=== PATIENT | female | born 1995 | race Caucasian/White ===

== ENCOUNTER 2019-04-12 08:28 | Day surgery (SDC) | payer OTHER, SELFPAY ==
[2019-04-11 14:11] VITALS: BMI 34.4
[2019-04-12 08:52] VITALS: PULSE 106; RESP 20; TEMP 36.3; O2SAT 98
[2019-04-12 09:08] LABS: OR HCG Qualitative Urine Negative (Negative)
[2019-04-12] MEDS: sodium chloride 0.9% 1,000 ML 30 ML (09:17)
--- NOTE | 2019-04-12 10:17 | ANES.PREANE2 ---
Pre-Anesthetic Assessment Pre-Anesthetic Assessment: Height/Weight: Height 1.74 m Weight 104.326 kg Temp Pulse Resp Pulse Ox 97.3 F L 106 H 20 H 98 04/12/19 08:52 04/12/19 08:52 04/12/19 08:52 04/12/19 08:52 Proposed Procedure: Operation Date: 04/12/19 10:00 Proposed Procedures p Colonoscopy(Not Applicable) - Chris Packer MD Was Beta Nasim taken within 24 hours: N/A Last intake: Intake Last Liquid Date 04/11/19 Last Liquid Time 22:00 Last Solid Date 04/10/19 Last Solid Time 20:00 Social: Social History: Alcohol and Tobacco Exam: Pre-Anes Outpt Exam: alert, oriented x 3, clear to auscultation bilaterally and regular rate & rhythm Airway: Submandibular: WNL Cervical ROM: WNL MP: 2 Dentition: Full History/ROS: No significant history except as noted and No significant complaints Pulmonary: Pulmonary: None reported CV/HEM: CV/HEM: None reported : : None reported Hepatic: Hepatic: None reported GI: GI: None reported Metabolic: Metabolic: None reported Musc/skel: Musc/skel: None reported Neuropsych: Neuropsych: None reported Anesthetic Plan: ASA status: 2 Anesthesia: Anesthesia Evaluation and MAC Risk of > 500 ml blood loss (7ml/kg in children): No Data Anesthesia Other Labs: Laboratory Results - last 48 hr 04/12/19 09:07 Urine HCG, Qual Negative Cardiac Studies: No Data to Display
--- NOTE | 2019-04-12 11:04 | W.PM.OPSUD ---
Surgery/Procedure H&P Update DATE OF PROCEDURE: April 12, 2019 DATE H&P PERFORMED: 04/02/19 H&P UPDATE INFORMATION: I have reviewed H&P completed within last 30 days, I have examined patient prior to procedure, No changes to prior documentation and H&P to be scanned into chart PREOP DIAGNOSIS: Rectal bleeding and family history of colon cancer PLANNED PROCEDURE: Operation Date: 04/12/19 10:00 Proposed Procedures p Colonoscopy(Not Applicable) - Chris Packer MD Related Problem List Diagnoses (1) Rectal bleeding: (2) Family history of colon cancer:
[2019-04-12 11:24] VITALS: BP 134/87; PULSE 106; RESP 16; TEMP 37.2; O2SAT 100
[2019-04-12 11:42] VITALS: BP 135/98; PULSE 84; RESP 18; O2SAT 100
== END 2019-04-12 11:45 | disposition home or self-care (01) ==
PROVIDERS: Anesthesiology; Family Provider Family Medicine; PCP Family Medicine; Visit Provider Family Medicine
PROC: 0DJD8ZZ Inspection of Lower Intestinal Tract, Via Natural or Artificial Opening Endoscopic (ICD-10-PCS; CPT 45378; principal; 2019-04-12 10:00)
DX: K62.5 Hemorrhage of anus and rectum (principal); Z80.0 Family history of malignant neoplasm of digestive organs; K64.8 Other hemorrhoids; Z82.49 Family history of ischemic heart disease and other diseases of the circulatory system; Z83.3 Family history of diabetes mellitus; Z87.891 Personal history of nicotine dependence
CPT/HCPCS: 12345; 45378; 81025; 84703; J2704; J7030

== ENCOUNTER 2019-08-13 08:56 | Outpatient (CLI) | payer OTHER, SELFPAY ==
--- NOTE | 2019-08-13 13:03 | PFTS_ITS ---
Date of Study:08/13/19 Date of Dictation: MECHANICS: Forced vital capacity (FVC) is normal. Forced expiratory volume in one second (FEV1) is normal. FEV1/FVC is reduced. FLOW VOLUME LOOP: Reduced flow at all lung volumes. LUNG VOLUMES: Not performed DIFFUSING CAPACITY FOR CARBON MONOXIDE: Not performed INTERPRETATION: The spirometry is consistent with mild obstruction MTDD
== END 2019-08-13 08:57 | disposition home or self-care (01) ==
LOC: RT 08:59
PROVIDERS: Family Provider Family Medicine; PCP Family Medicine; Visit Provider Family Medicine
DX: R93.89 Abnormal findings on diagnostic imaging of other specified body structures (principal)
CPT/HCPCS: 94010

== ENCOUNTER → 2019-09-20 11:00 | Outpatient (BNVA) | payer OTHER, SELFPAY | PROVIDERS: Family Provider Family Medicine; PCP Family Medicine; Visit Provider Internal Medicine | DX: J44.9 Chronic obstructive pulmonary disease, unspecified (principal) | CPT/HCPCS: 87635 ==

== ENCOUNTER 2019-09-25 13:01 | Outpatient (CLI) | payer OTHER, SELFPAY ==
--- NOTE | 2019-09-25 13:30 | CT_ITS ---
WS: [id number] CT CHEST WITHOUT INTRAVENOUS CONTRAST HISTORY: obstructive lung disease TECHNIQUE: Contiguous 5 mm axial imaging performed on the thorax. Coronal and sagittal reformats are submitted. All CT scans at [facility] use at least one of these dose optimization techniq ues: automated exposure control; mA and/or kV adjustment per patient size (includes targeted exams wh ere dose is matched to clinical indication); or iterative reconstruction. CONTRAST: None DLP: 933.02 mGy.cm COMPARISON: 05/09/2019 Lungs and central airway: Normally aerated lungs. No hyperexpansion or bullous disease. There is some very minimal groundglass attenuation adjacent to the ascending aorta. No pulmonary nodule. Pleura: Normal. No pleural effusion. Heart and pericardium: Normal size heart. No pericardial effusion. Mediastinum and cody: No adenopathy. Residual thymic tissue present along the anterior mediastinum co nforms to the space. Vessels: Pulmonary artery is slightly enlarged suggesting pulmonary hypertension. Diameter slightly g reater than aorta. Chest wall and lower neck: No soft tissue masses. Upper abdomen: Postsurgical changes superior pole of the RIGHT kidney. Prior cholecystectomy. Diffuse hepatic steatosis. Osseous structures: No destructive process. CT/CT chest wo con [id number] IMPRESSION: 1. No pulmonary nodules or mass. 2. No CT evidence for emphysema. 3. Mild enlargement of the pulmonary artery. Correlate for pulmonary hypertens ion. 4. Prior cholecystectomy. 5. Hepatic steatosis.
[2019-09-25 14:28] LABS: Basophils % 0.3 %; Eosinophils # 0.1 10^3/uL (0.0-0.8); Eosinophils % 0.9 %; Hematocrit 40.7 % (37.0-47.0); Hemoglobin 13.1 g/dL (11.5-15.3); Lymphocytes # 3.6 10^3/uL (0.8-4.8); Lymphocytes % 33.1 %; Mean Corpuscular HGB Conc 32.2 g/dL (30.0-36.0); Mean Corpuscular Hemoglobin 27.2 pg (28.0-34.0); Mean Corpuscular Volume 84.6 fL (81-99); Mean Platelet Volume 9.6 fL (7.4-10.4); Monocytes # 0.7 10^3/uL (0.2-0.9); Monocytes % 6.8 %; Neutrophils % 58.4 %; Nucleated Red Blood Cells % 0 %; Platelet Count 281 10^3/cmm (130-400); Red Blood Count 4.81 10^6/uL (4.1-5.3); Red Cell Distribution Width 12.6 % (12.1-15.1)
[2019-09-25 14:46] LABS: Alanine Aminotransferase 13 U/L (0-33); Albumin Level 4.1 g/dL (3.5-5.2); Alkaline Phosphatase 78 IU/L (35-105); Anion Gap 13.8 (5-19); Aspartate Amino Transferase 12 U/L (0-32); Blood Urea Nitrogen 11 mg/dL (6-20); Carbon Dioxide 24 mmol/L (22-29); Chloride 103 mmol/L (98-107); Globulin 3.3 g/dL (1.3-4.6); Glomerular Filtration Rate 122.8 mL/min (90-130); Glucose 110 mg/dL (65-115); Osmolality Calculated 281 mOsm/kg (285-295); Potassium 3.8 mmol/L (3.5-5.1); Sodium 137 mmol/L (136-145); Total Bilirubin 0.2 mg/dL (0.15-1.2); Total Protein 7.4 g/dL (6.6-8.7)
[2019-09-26 18:35] LABS: Alternaria Alternata (M6) Ige <0.10 kU/L; Alternaria Class 0; Bermuda Class 0; Bermuda Grass (G2) Ige <0.10 kU/L; Cat Dander (E1) Ige <0.10 kU/L; Cat Dander Class 0; Common Ragweed (Short) (W1) Ig <0.10 kU/L; D. Farinae Class 0; Dermatophagoides Class 0; Dermatophagoides Farinae (D2) <0.10 kU/L; Dermatophagoides Pteronyssinus <0.10 kU/L; Dog Dander (E5) Ige <0.10 kU/L; Dog Dander Class 0; Elm (T8) Ige <0.10 kU/L; Elm Class 0; English Plantain (W9) Ige <0.10 kU/L; English Plantain Class 0; House Dust (Greer) (H1) Ige <0.10 kU/L; House Dust (Hollister- Stier) <0.10 kU/L; House Dust Class 0; Immunoglobulin E 64 kU/L (<OR=114); Immunoglobulin E 65 kU/L (<OR=114); Johnson Grass (G10) Ige <0.10 kU/L; Johnson Grass Cl 0; June Grass Class 0; June Grass(Kentucky Blue) (G8) <0.10 kU/L; Lamb'S Quarters (Goose Foot) <0.10 kU/L; Lamb'S Quarters Class 0; Maple (Box Elder) (T1) Ige <0.10 kU/L; Maple Class 0; Meadow Fescue (G4) Ige <0.10 kU/L; Meadow Fescue Class 0; Mucor Racemosus Class 0; Oak (T7) Ige <0.10 kU/L; Oak Class 0; Orchard Grass (Cocksfoot) (G3) <0.10 kU/L; Penicillium Class 0; Penicillium Notatum (M1) Ige <0.10 kU/L; Perennial Rye Grass (G5) Ige <0.10 kU/L; Perennial Rye Grass Class 0; Ragweeed Class 0; Rough Marsh Elder (W16) Ige <0.10 kU/L; Rough Marsh Elder Class 0; Sweet Vernal Class 0; Sweet Vernal Grass (G1) Ige <0.10 kU/L; Timothy Grass (G6) Ige <0.10 kU/L; Timothy Grass Class 0
[2019-09-30 18:12] LABS: Aspergillus Fumigatus, Igg Ab, 7.7 mg/L (<=102)
== END 2019-09-25 13:02 | disposition home or self-care (01) ==
LOC: RAD 13:03
PROVIDERS: PCP Family Medicine; Visit Provider Internal Medicine Pulmonary Disease
DX: J44.9 Chronic obstructive pulmonary disease, unspecified (principal); R06.02 Shortness of breath; K76.0 Fatty (change of) liver, not elsewhere classified
CPT/HCPCS: 71250; 80053; 82785; 85025; 86003; 94060; 94726; 94729; J7611

== ENCOUNTER 2019-11-06 12:00 | Outpatient (CLI) | payer OTHER, SELFPAY | END 2019-11-06 12:01 | disposition home or self-care (01) | LOC: SLEEP 11-07 09:38 | PROVIDERS: Family Provider Family Medicine; PCP Family Medicine; Visit Provider Internal Medicine Pulmonary Disease | DX: G47.33 Obstructive sleep apnea (adult) (pediatric) (principal) | CPT/HCPCS: G0399 ==

== ENCOUNTER 2019-11-21 07:43 | Outpatient (CLI) | payer OTHER, SELFPAY ==
--- NOTE | 2019-11-21 08:00 | USCV_ITS ---
HearnPing Age: 24 Gender: F : 1995 Exam Date: 11/21/2019 08:03 Ordering Phys: Chelsea Escoto MD ([email or web address]) Technologist: Leslie Kessler [place]am Location[place] [facility] [place]ication: DYSPNEA BP: 126 / 84 HR: 85 Rhythm: Sinus Technical Quality: Adequate MEASUREMENTS (Male / Female) Normal Values 2D ECHO LV Diastolic Diameter PLAX 4.5 cm 4.2 - 5.9 / 3.9 - 5.3 cm LV Systolic Diameter PLAX 3.3 cm LV Chamber Size 2.9 cm IVS Diastolic Thickness 0.9 cm 0.6 - 1.0 / 0.6 - 0.9 cm IVS Systolic Thickness 1.1 cm LVPW Diastolic Thickness 1.9 cm 0.6 - 1.0 / 0.6 - 0.9 cm LVPW Systolic Thickness 1.7 cm RV Chamber Size 2.7 cm LVOT Diameter 2.0 cm LV Ejection Fraction 2D Teich 50.7 % LV Ejection Fraction MOD 2C 51.8 % LV Ejection Fraction 2C AL 53.1 % LA Diameter 3.5 cm LA Width 2.8 cm LA Height 3.7 cm RA Width 2.7 cm RA Height 3.2 cm Aorta at Sinotubular Diameter 2.4 cm M-MODE LV Diastolic Diameter MM 5.0 cm 4.2 - 5.9 / 3.9 - 5.3 cm LV Systolic Diameter MM 3.3 cm LV Ejection Fraction MM Teich 61.8 % IVS Diastolic Thickness MM 0.7 cm 0.6 - 1.0 / 0.6 - 0.9 cm IVS Systolic Thickness MM 1.1 cm LVPW Diastolic Thickness MM 0.6 cm 0.6 - 1.0 / 0.6 - 0.9 cm LVPW Systolic Thickness MM 1.3 cm Aortic Annulus Diameter 3.0 cm LA Ao Ratio MM 1.2 MV E Point Septal Separation 0.8 cm DOPPLER AV Peak Velocity 134.0 cm/s LVOT Peak Velocity 104.0 cm/s AV Area Cont Eq vti 3.2 cm squared AV Area Cont Eq pk 2.5 cm squared MV Area PHT 6.7 cm squared Mitral E to A Ratio 1.0 MV E' Velocity 44.0 cm/s Mitral E to MV E' Ratio 5.9 Mitral E to LV E' Lateral Ratio 5.3 Mitral E to LV E' Septal Ratio 6.7 TR Peak Velocity 140.8 cm/s TR Peak Gradient 7.9 mmHg TV Peak E Velocity 73.0 cm/s Right Atrial Pressure 3.0 mmHg Pulmonary Artery Systolic Pressu 10.9 mmHg PV Peak Velocity 67.0 cm/s RV Acceleration Time 0.2 s RV Ejection Time 0.3 s RV AcT/ET 0.5 FINDINGS Left Ventricle Normal left ventricular size, systolic function and wall thickness, with no regional wall motion abnormalities. Left ventricular ejection fraction is estimated at 65 %. Normal diastolic function. Right Ventricle Normal right ventricular size and systolic function, RVSP 10.9 mmHg. Right Atrium Normal right atrial size. Right atrial pressure estimated at 3 mmHg. Left Atrium Normal left atrial size. Mitral Valve Structurally normal mitral valve. No mitral valve stenosis. Trace mitral valve regurgitation. Aortic Valve Structurally normal trileaflet aortic valve. No aortic valve stenosis. No aortic valve regurgitation. Tricuspid Valve Structurally normal tricuspid valve. Trace tricuspid valve regurgitation. Pulmonic Valve Pulmonic valve not well visualized. No pulmonary valve stenosis. No significant pulmonary valve regurgitation. Pericardium No pericardial effusion. Normal sized inferior vena cava. Aorta Normal size aortic root and proximal ascending aorta. CONCLUSIONS 1. Normal left ventricular size, systolic function and wall thickness, with no regional wall motion abnormalities. Left ventricular ejection fraction is estimated at 65 %. Normal diastolic function. 2. Normal right ventricular size and systolic function, RVSP 10.9 mmHg. 3. No significant valvular abnormality. 4. No intracardiac masses. 5. No pericardial effusion. 6. No prior similar studies to compare. Chelsea Escoto MD (Electronically Signed) Final Date: 21 November 2019 18:13 S
== END 2019-11-21 07:44 | disposition home or self-care (01) ==
LOC: RAD 07:45
PROVIDERS: PCP Family Medicine; Visit Provider Internal Medicine Cardiovascular Disease
DX: R06.00 Dyspnea, unspecified (principal); R00.0 Tachycardia, unspecified
CPT/HCPCS: 93306

== ENCOUNTER 2020-04-13 08:56 | Emergency (ER) | payer OTHER, SELFPAY ==
[2020-04-13 08:58] VITALS: BP 166/104; PULSE 90; RESP 18; TEMP 36.4; O2SAT 98; BMI 35.4
[2020-04-13 09:18] VITALS: BP 166/104; PULSE 81; RESP 14; O2SAT 97
--- NOTE | 2020-04-13 09:46 | W.ED.HA ---
HPI - Headache General: Chief Complaint: Headache Stated Complaint: MIGRAINE (4 DAYS) Time Seen by Provider: 04/13/20 08:57 History of Present Illness: HPI Narrative: 24-year-old female presents emergency room with complaints of headache. She has been having these last couple months is seen her primary care doctor for it several times she is on metoprolol and Depakote for migraine prophylaxis. She states these headaches begin suddenly desponded as well. This 1 has been going on for the last 4 days she is taken Aleve for with no relief she does not have any prescription rescue headache medications. She does get nauseous with it and has some moderate photophobia. She is not had any vomiting. She has had a history of a questionable lesion in her right kidney that was removed. She made a comment about a liver tumor however there is mention of that in the lead up to the nephrectomy partial nephrectomy and on follow-up scans done to monitor the lesion in the kidney the area of concern in the liver had resolved completely. MD elicited complaint: headache Onset (ago): day(s) (4) Onset description: suddenly Location: left Severity: moderate Quality & Timing: throbbing Exacerbating factors: exertion and light Relieving factors: rest and dark room Associated symptoms: Reports nausea and photophobia; Deny chest pain, confusion, cough, diaphoresis, eye pain, eye redness, fever(s), lightheadedness, loss of vision, malaise, neck stiffness, numbness, paresthesias, pre-syncope, rash, seizures, short of breath, sound sensitivity, syncope, vomiting or weakness Treatments prior to arrival: other (Naprosyn) Review of Systems Const: Denies: fever(s), malaise or diaphoresis ENMT: Denies: throat pain, ear or mastoid pain, nasal discharge or nasal congestion Card: Denies: chest pain, lightheadedness, syncope or pre-syncope Resp: Denies: dyspnea, productive cough or non-productive cough GI: Reports: nausea; Denies: vomiting : Denies: flank pain, difficulty voiding, dysuria, urinary frequency or urinary urgency Skin/Breast: Denies: rash Neuro: Denies: confusion PFSH ED PFSH: Medical History (Updated 04/13/20 @ 11:24 by Grabiel Reich DO) Anxiety Depression FHx: kidney cancer Surgical History History of cholecystectomy History of kidney surgery History of tonsillectomy and adenoidectomy Family History Other CAD (coronary artery disease) Cancer Diabetes Hypertension Lung disease Psychiatric illness Social History Smoking and tobacco status: current every day smoker cigarettes Years cigarettes smoked: 4 [ Other cigarette details: 1PPD x 4 Year Hx ] Quit status (tobacco): considering quitting Second hand smoke exposure: Yes Smoking risk assessment/counseling performed?: Yes Alcohol intake: current Lives independently: Yes Household members: spouse Marital status: Current 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 Current occupational exposures/hazards: No History of recent travel: No Current gender identity: Female Physical Exam Const: COMMON NORMALS: no acute distress GENERAL APPEARANCE: cooperative and comfortable ORIENTATION/CONSCIOUSNESS: Yes awake, Yes oriented to person, Yes oriented to place and Yes oriented to time HENMT: COMMON NORMALS: normocephalic, atraumatic, hearing grossly normal bilaterally, external ears normal, EAC's normal, TM's normal bilaterally, Normal nasal mucous membranes and turbinates present, moist oral mucous membranes and oropharynx normal HEAD & SCALP: normocephalic and atraumatic NOSE: Normal nasal mucous membranes and turbinates present EXTERNAL EAR: Yes external ears normal EXTERNAL AUDITORY CANAL: EAC's normal TYMPANIC MEMBRANE: TM's normal bilaterally Eye: COMMON NORMALS: Equal, round and reactive pupils present, EOMs intact bilaterally, conjunctivae normal and no scleral icterus CONJUNCTIVA: Yes conjunctivae normal PUPIL: Yes Equal, round and reactive pupils present DIRECT OPHTHALMOSCOPY: Yes photophobia Neck/C-Spine: COMMON NORMALS: no JVD Resp: COMMON NORMALS: normal respiratory effort, No retractions, No use of accessory muscles and clear to auscultation bilaterally AUSCULTATION: clear to auscultation bilaterally Cardio: COMMON NORMALS: no JVD, regular rate, regular rhythm and No murmurs present (Cardio) RATE: regular rate RHYTHM: regular rhythm GI: COMMON NORMALS: Soft to palpation and No hepatosplenomegaly present AUSCULTATION: Yes normoactive bowel sounds PALPATION: Yes Soft to palpation, No Tenderness to palpation present (GI), No Guarding due to palpation present (GI) and Yes No hepatosplenomegaly present Extremity: COMMON NORMALS: normal to inspection, capillary refill normal, no clubbing, cyanosis or edema, no calf tenderness and no pedal edema Neuro: SENSORIUM/ORIENTATION: Yes oriented to person, Yes oriented to place and Yes oriented to time Skin: COMMON NORMALS: no rashes or lesions noted GENERAL SKIN EXAM: no rashes or lesions noted Course Vital Signs: Vital signs: Vital Signs Temperature 97.5 F L 04/13/20 08:58 Pulse Rate 74 04/13/20 11:32 Respiratory Rate 14 04/13/20 11:32 Blood Pressure 130/78 04/13/20 11:32 Pulse Oximetry 100 04/13/20 11:32 MDM - Headache MDM Narrative: Medical decision making narrative: Patient has no focal neurologic deficits this is been an ongoing issue with her migraines for the last 3 months. She had been started on prophylactic migraine therapy. She complaining of some discomfort occasionally in her arms although it was only from the forearms distal. 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 I do think she would benefit from further evaluation and likely advanced imaging such as an MRI. She is given a prescription for rescue medicines for her headaches. We did treat her here in the emergency room she had some improvement but still had a fairly significant headache I had written for more medication to try to relieve her headache she declined that she is simply wanted to go back to work. She is concerned about the cost of this ER visit and had expected all necessary imaging would be done during this ER visit. Discussed with her that she would benefit most from an MRI of the head. Also suspect she may benefit from an MRI of the neck given the bilateral arm symptoms. We will make arrangements for those as well as referral to neurology. Discharge Plan Discharge Patient Disposition: Home Clinical Impression: Migraine, Numbness and tingling of right upper extremity, Numbness and tingling of left upper extremity Condition: Stable Prescriptions: New promethazine 25 mg tablet 25 mg PO Q6H PRN (Reason: prn headache) Qty: 20 RF: 0 Imitrex 50 mg tablet See Rx Instructions .ROUTE .COMPLEX Qty: 20 RF: 0 No Action montelukast [Singulair] 10 mg tablet 10 mg PO DAILY Qty: 30 RF: 3 clonazepam 0.5 mg Tablet 0.5 mg PO EVERY OTHER DAY PRN (Reason: Anxiety) RF: 0 lithium carbonate 450 mg tablet extended release 450 mg PO BID RF: 0 metoprolol tartrate 50 mg tablet 50 mg PO BID RF: 0 propranolol 20 mg Tablet 20 mg PO BID RF: 0 Topamax 50 mg Tablet 50 mg PO BID RF: 0 Flovent HFA 110 mcg/actuation HFA aerosol inhaler 1 puff inhalation BID PRN (Reason: Shortness Of Breath) RF: 0 Discharge Orders: Discharge ED (Routine); Ordered 04/13/20 Ordered By: Grabiel Reich Referrals: Chris Packer MD [Primary Care Provider] - Discharge Diet: Usual diet Discharge Activity: Increase activity as tolerated Patient Instructions: Opioid Safety Activity Restrictions/Additional Instructions: Case management will call to get an MRI of the head and neck arranged for her. Follow-up with your primary care doctor. You may return to the emergency room at any time if your symptoms worsen. Coding Level of Care Code ED Rolled Ham Lacer for Taniya Fwamber Exam Comprehensive
[2020-04-13] MEDS: sodium chloride 0.9% 1,000 ML 999 ML IV (09:47)
[2020-04-13] MEDS: ketorolac 30 mg/mL INJ IVP (09:49)
[2020-04-13] MEDS: promethazine 25 mg/mL SDV 1 mL IM (09:51)
[2020-04-13] MEDS: valproic acid inj 500 MG in sodium chloride 0.9% 50 ML 55 MG IV (09:53)
[2020-04-13 09:58] VITALS: BP 136/71; PULSE 71; RESP 14; O2SAT 98
[2020-04-13 10:49] VITALS: BP 128/65; PULSE 70; RESP 14; O2SAT 100
[2020-04-13 11:23] VITALS: BP 158/74; PULSE 75; RESP 16; O2SAT 97
[2020-04-13 11:32] VITALS: BP 130/78; PULSE 74; RESP 14; O2SAT 100
--- NOTE | 2020-04-13 15:48 | PC.NURSE ---
Read and agree with assessment.
== END 2020-04-13 11:38 | disposition home or self-care (01) ==
PROVIDERS: Emergency Provider Family Medicine; PCP Family Medicine
DX: G43.909 Migraine, unspecified, not intractable, without status migrainosus (principal); R20.0 Anesthesia of skin; F17.210 Nicotine dependence, cigarettes, uncomplicated
CPT/HCPCS: 96365; 96372; 99283; J1885; J2550; J7030

== ENCOUNTER 2020-08-24 07:38 | Outpatient (CLI) | payer OTHER, SELFPAY ==
--- NOTE | 2020-08-24 07:51 | US_ITS ---
WS: [id number] ULTRASOUND BREAST LEFT TECHNIQUE: Ultrasound left breast focused area of concern. CLINICAL INFORMATION: DISCHARGE FROM LT NIP[facility] COMPARISON: None. FINDINGS: Ultrasound left breast at the areola. No evidence of underlying cystic or solid lesion. No suspicious lesions to target for biopsy. Comparison right breast at the areola is normal in appearance. US/US breast LT limited* [id number] IMPRESSION: No suspicious findings BI-RADS 2 benign Recommend annual screening mammography age 40
== END 2020-08-24 07:39 | disposition home or self-care (01) ==
LOC: RAD 07:45
PROVIDERS: PCP Family Medicine; Visit Provider Nurse Practitioner
DX: N64.52 Nipple discharge (principal)
CPT/HCPCS: 76642

== ENCOUNTER → 2020-08-25 14:48 | Outpatient (BNVA) | payer OTHER, SELFPAY | PROVIDERS: PCP Family Medicine; Visit Provider Obstetrics & Gynecology | DX: Z01.419 Encounter for gynecological examination (general) (routine) without abnormal findings (principal); Z98.890 Other specified postprocedural states | CPT/HCPCS: 88175 ==

== ENCOUNTER → 2021-02-09 11:32 | Outpatient (BNVA) | payer OTHER, SELFPAY | PROVIDERS: PCP Nurse Practitioner Family; Visit Provider Nurse Practitioner Family | DX: E66.9 Obesity, unspecified (principal); Z68.38 Body mass index [BMI] 38.0-38.9, adult; R53.83 Other fatigue | CPT/HCPCS: 80053; 83036; 84439; 84443; 84481 ==

== ENCOUNTER → 2021-03-19 11:52 | Outpatient (BNVA) | payer OTHER, SELFPAY | PROVIDERS: PCP Nurse Practitioner Family; Visit Provider Nurse Practitioner Family | DX: I10 Essential (primary) hypertension (principal); N93.0 Postcoital and contact bleeding | CPT/HCPCS: 81003; 81025; 87491; 87591; 87661 ==

== ENCOUNTER → 2021-03-30 09:33 | Outpatient (BNVA) | payer OTHER, SELFPAY | PROVIDERS: PCP Nurse Practitioner Family; Visit Provider Obstetrics & Gynecology | DX: O26.859 Spotting complicating pregnancy, unspecified trimester (principal) | CPT/HCPCS: 84702; 86850; 86900 ==

== ENCOUNTER → 2021-04-05 10:22 | Outpatient (BNVA) | payer OTHER, SELFPAY | PROVIDERS: PCP Nurse Practitioner Family; Visit Provider Obstetrics & Gynecology | DX: O26.859 Spotting complicating pregnancy, unspecified trimester (principal) | CPT/HCPCS: 84702 ==

== ENCOUNTER 2021-04-09 08:07 | Outpatient (CLI) | payer OTHER, SELFPAY | END 2021-04-09 08:08 | disposition home or self-care (01) | LOC: LAB 08:12 | PROVIDERS: PCP Nurse Practitioner Family; Visit Provider Obstetrics & Gynecology | DX: O20.9 Hemorrhage in early pregnancy, unspecified (principal) | CPT/HCPCS: 36415; 84702 ==

== ENCOUNTER 2021-04-09 13:58 | Emergency (ER) | payer OTHER, SELFPAY ==
--- NOTE | 2021-04-09 14:03 | US_ITS ---
WS: [id number] Obstetrical ultrasound, less than 14 weeks. HISTORY: Spotting and cramping. Evaluate for ectopic . Normal size anteverted uterus. There is a tiny cyst within the central endometrium. If this is a gest ational sac age is calculated at 5 weeks and 1 day. No pole or cardiac activity is identified. Cervix is closed. No free fluid. RIGHT ovary measures 1.8 x 1.7 x 1.6 cm. LEFT ovary measures 2.7 x 1.7 x 2.9 cm. No ad ditional adnexal masses are identified. US/US OB transvaginal [id number] IMPRESSION: 1. Cannot confirm intrauterine uterine gestation. There is a tiny amount of flu id along the endometrial canal which could represent a very early gestation of approximately 5 weeks and 1 day. 2. No free fluid or adnexal masses other than the ovaries. 3. Cannot exclude ectopic without confirming intrauterine gestation.
[2021-04-09 14:09] VITALS: BP 168/101; PULSE 118; RESP 18; TEMP 36.7; O2SAT 99; BMI 37.6
[2021-04-09 15:35] LABS: Basophils % 0.2 %; Eosinophils # 0.1 10^3/uL (0.0-0.8); Eosinophils % 0.5 %; Hematocrit 42.4 % (37.0-47.0); Hemoglobin 13.8 g/dL (11.5-15.3); Lymphocytes # 2.6 10^3/uL (0.8-4.8); Lymphocytes % 20.9 %; Mean Corpuscular HGB Conc 32.5 g/dL (30.0-36.0); Mean Corpuscular Hemoglobin 27.4 pg (28.0-34.0); Mean Corpuscular Volume 84.3 fl (81-99); Mean Platelet Volume 9.5 fL (7.4-10.4); Monocytes # 0.7 10^3/uL (0.2-0.9); Monocytes % 5.7 %; Neutrophils # 8.99 10^3/uL (1.8-7.7); Neutrophils % 72.1 %; Nucleated Red Blood Cells % 0 %; Platelet Count 261 10^3/cmm (130-400); Red Blood Count 5.03 10^6/uL (4.1-5.3); Red Cell Distribution Width 13.2 % (12.1-15.1); White Blood Count 12.5 10^3/uL (4.0-10.0)
[2021-04-09 16:04] LABS: Alanine Aminotransferase 24 U/L (0-33); Albumin Level 4.5 g/dL (3.5-5.2); Alkaline Phosphatase 82 IU/L (35-105); Anion Gap 13.6 (5-19); Aspartate Amino Transferase 14 U/L (0-32); Blood Urea Nitrogen 8 mg/dL (6-20); Calcium 8.5 mg/dL (8.5-10.5); Carbon Dioxide 25 mmol/L (22-29); Chloride 102 mmol/L (98-107); Globulin 2.5 g/dL (1.3-4.6); Glomerular Filtration Rate 121.8 mL/min (90-130); Glucose 129 mg/dL (65-115); Osmolality Calculated 284 mOsm/kg (285-295); Potassium 3.6 mmol/L (3.5-5.1); Sodium 137 mmol/L (136-145); Total Bilirubin 0.2 mg/dL (0.15-1.2)
--- NOTE | 2021-04-09 16:04 | ED_ITS ---
Documented by User: GIOVANNY Hawkins 04/09/21 16:43 HPI - General: Chief complaint: OB/Uterine Contractions Stated complaint: pt believes shes having ectopic Time Seen by Provider: 04/09/21 15:23 Source: patient Mode of arrival: ambulatory Limitations: no limitations History of Present Illness: Patient is a 25-year-old female here for concerns of a possible miscarriage or ectopic . Patient tells me she had a positive test with an hCG of 44 on 03/30. She had her hCG repeated 6 days later on 04/05 and it was 88. She states her hCG then was repeated 6 days later and it was 151 (that was this morning). Patient states she has never had an ultrasound. Her hCGs are being ordered through [facility]/Dr. Ballesteros. Patient has had intermittent vaginal bleeding since mid October. She states she has blood over the past 4 days and has cramping. She states bleeding is fairly mild at this time. This would make patient's third . She states she had 2 uncomplicated live births. MD Complaint: vaginal bleeding and other (pelvic cramping) Onset (ago): day(s) Pain Consistency: constant Location: pelvis Quality: Cramping Relieving factors: none Exacerbating factors: none Vaginal discharge: none Vaginal bleeding: light Date of Last Menstrual Period: 03/05/21 Patient : Yes OB History - Current : no complications OB History - Previous Pregnancies: no complications Associated symptoms: Reports nausea; Deny abdominal pain, dysuria, headache(s), malaise, vaginal discharge or vomiting Review of Systems Const: Denies: fever(s), chills, body aches, fatigue or malaise Card: Denies: chest pain Resp: Denies: dyspnea GI: Reports: nausea; Denies: abdominal pain, vomiting, pain on defecation or change in stool character : Reports: vaginal bleeding and pelvic pain; Denies: flank pain, dysuria, hematuria, vaginal odor or vaginal discharge Musc: Denies: neck pain or back pain Skin/Breast: Denies: rash Neuro: Denies: headache(s) PFSH ED PFSH: Medical History Anxiety Depression FHx: kidney cancer Renal cell carcinoma of right kidney Surgical History History of cholecystectomy History of kidney surgery History of tonsillectomy and adenoidectomy Hx of partial nephrectomy Family History Mother Hypertension Stroke Father Hypertension Grandmother Stroke maternal Breast cancer, Onset Age: 68 maternal Grandfather Heart disease maternal Colon cancer, Onset Age: 72 paternal Denies family history of Ovarian cancer Diabetes Clotting disorder Hyperlipidemia Anesthesia complication Bleeding disorder Uterine cancer Thyroid condition Social History Smoking and tobacco status: former smoker Quit status (tobacco): has quit using tobacco Former quit date comment: 08/2020 Alcohol intake: current Alcohol intake frequency: few times a week Alcohol type: beer, wine and hard liquor Female Reproductive History: Date of last menstrual period: 03/05/21 Physical Exam Const: COMMON NORMALS: no acute distress, patient oriented x3, no limitations and alert GENERAL APPEARANCE: cooperative NUTRITIONAL APPEARANCE: overweight ORIENTATION/CONSCIOUSNESS: Yes awake, Yes oriented to person, Yes oriented to place and Yes oriented to time Resp: COMMON NORMALS: normal respiratory effort Cardio: COMMON NORMALS: regular rate and regular rhythm RATE: regular rate RHYTHM: regular rhythm : OB/EXTERNAL & SPECULUM: Deferred OB/external & speculum exam Neuro: COMMON NORMALS: patient oriented x3 SENSORIUM/ORIENTATION: Yes alert, Yes oriented to person, Yes oriented to place and Yes oriented to time Course Vital Signs: Vital signs: Vital Signs Temperature 98.0 F 04/09/21 14:09 Pulse Rate 101 H 04/09/21 16:35 Respiratory Rate 18 04/09/21 16:35 Blood Pressure 151/82 04/09/21 16:35 Pulse Oximetry 100 04/09/21 16:35 MDM - OB/Uterine Contractions Medical Decision Making Patient's vital signs are stable. CBC/CMP is nonconcerning. Repeat serum hCG (this was ordered prior to knowing she had this performed this morning) was 145. Ultrasound inconclusive but could not confirm an intrauterine gestation. Spoke to Dr. Reich who recommended repeating hCG on Monday. Stated there was no n eed to repeat US at this time with hcg levels so low. She has an appointment Dr. Packer on Monday that she can follow up regarding hcg results. Return to ED precautions given. Lab Data : 04/09/21 15:20 04/09/21 15:20 Radiology Impressions Transvaginal US 04/09/21 14:03 IMPRESSION: 1. Cannot confirm intrauterine uterine gestation. There is a tiny amount of fluid along the endometrial canal which could represent a very early gestation of approximately 5 weeks and 1 day. 2. No free fluid or adnexal masses other than the ovaries. 3. Cannot exclude ectopic without confirming intrauterine gestation. Laboratory Results WBC 12.5 10^3/uL (4.0-10.0) H 04/09/21 15:20 RBC 5.03 10^6/uL (4.1-5.3) 04/09/21 15:20 Hgb 13.8 g/dL (11.5-15.3) 04/09/21 15:20 Hct 42.4 % (37.0-47.0) 04/09/21 15:20 MCV 84.3 fl (81-99) 04/09/21 15:20 MCH 27.4 pg (28.0-34.0) L 04/09/21 15:20 MCHC 32.5 g/dL (30.0-36.0) 04/09/21 15:20 RDW 13.2 % (12.1-15.1) 04/09/21 15:20 Plt Count 261 10^3/cmm (130-400) 04/09/21 15:20 MPV 9.5 fL (7.4-10.4) 04/09/21 15:20 Neut % (Auto) 72.1 % 04/09/21 15:20 Lymph % (Auto) 20.9 % 04/09/21 15:20 [place] % (Auto) 5.7 % 04/09/21 15:20 Eos % (Auto) 0.5 % 04/09/21 15:20 Baso % (Auto) 0.2 % 04/09/21 15:20 Neut # (Auto) 8.99 10^3/uL (1.8-7.7) H 04/09/21 15:20 Lymph # (Auto) 2.6 10^3/uL (0.8-4.8) 04/09/21 15:20 [place] # (Auto) 0.7 10^3/uL (0.2-0.9) 04/09/21 15:20 Eos # (Auto) 0.1 10^3/uL (0.0-0.8) 04/09/21 15:20 Baso # (Auto) 0.0 10^3/uL (0.0-0.1) 04/09/21 15:20 Nucleated RBC % (auto) 0 % 04/09/21 15:20 Nucleated RBCs # 0.0 /100WBC 04/09/21 15:20 Sodium 137 mmol/L (136-145) 04/09/21 15:20 Potassium 3.6 mmol/L (3.5-5.1) 04/09/21 15:20 Chloride 102 mmol/L (98-107) 04/09/21 15:20 Carbon Dioxide 25 mmol/L (22-29) 04/09/21 15:20 Anion Gap 13.6 (5-19) 04/09/21 15:20 BUN 8 mg/dL (6-20) 04/09/21 15:20 Creatinine 0.6 mg/dL (0.5-0.9) 04/09/21 15:20 GFR Calculation 121.8 mL/min (90-130) 04/09/21 15:20 Glucose 129 mg/dL (65-115) H 04/09/21 15:20 Calculated Osmolality 284 mOsm/kg (285-295) L 04/09/21 15:20 Calcium 8.5 mg/dL (8.5-10.5) 04/09/21 15:20 Total Bilirubin 0.2 mg/dL (0.15-1.2) 04/09/21 15:20 AST 14 U/L (0-32) 04/09/21 15:20 ALT 24 U/L (0-33) 04/09/21 15:20 Alkaline Phosphatase 82 IU/L (35-105) 04/09/21 15:20 Total Protein 7.0 g/dL (6.6-8.7) 04/09/21 15:20 Albumin 4.5 g/dL (3.5-5.2) 04/09/21 15:20 Globulin 2.5 g/dL (1.3-4.6) 04/09/21 15:20 Ser , Semi-Qnt 145.80 mIU/mL 04/09/21 15:20 Discharge Plan Discharge Patient Disposition: Home Clinical Impression: Threatened miscarriage in early Condition: Stable Prescriptions: No Action amlodipine 5 mg tablet 5 mg PO DAILY Qty: 30 0RF Rx Instructions: 340 B if unaffordable fluoxetine 10 mg tablet 10 mg PO QAM Qty: 30 0RF hydrochlorothiazide 25 mg tablet 25 mg PO QAM Qty: 30 0RF Contrave 8-90 mg tablet extended release 2 tab PO BID Qty: 210 0RF Rx Instructions: 340B ondansetron 4 mg tablet,disintegrating 4 mg PO Q6H PRN (Reason: Nausea) 0RF Discharge Orders: Discharge ED (Routine); Ordered 04/09/21 Ordered By: Randi Ramirez Referrals: Sunitha Montez FNP-C [Primary Care Provider] - Activity Restrictions/Additional Instructions: As we discussed you have an outpatient order for repeat hCG on Monday morning. Please follow-up with Dr. Packer at your scheduled appointment on Monday. You may return to the emergency department for severe vaginal bleeding, severe pain, or any other concerns you may have. Coding Level of Care Code ED Drug Safety Associate for Chg Fwd Exam Expanded Problem Focused Documented by User: Grabiel Reich DO 04/09/21 16:48 HPI - General: Chief complaint: OB/Uterine Contractions Stated complaint: pt believes shes having ectopic Time Seen by Provider: 04/09/21 15:23 PFSH ED PFSH: Medical History Anxiety Depression FHx: kidney cancer Renal cell carcinoma of right kidney Surgical History History of cholecystectomy History of kidney surgery History of tonsillectomy and adenoidectomy Hx of partial nephrectomy Family History Mother Hypertension Stroke Father Hypertension Grandmother Stroke maternal Breast cancer, Onset Age: 68 maternal Grandfather Heart disease maternal Colon cancer, Onset Age: 72 paternal Denies family history of Ovarian cancer Diabetes Clotting disorder Hyperlipidemia Anesthesia complication Bleeding disorder Uterine cancer Thyroid condition Social History Smoking and tobacco status: former smoker Quit status (tobacco): has quit using tobacco Former quit date comment: 08/2020 Alcohol intake: current Alcohol intake frequency: few times a week Alcohol type: beer, wine and hard liquor Course Vital Signs: Vital signs: Vital Signs Temperature 98.0 F 04/09/21 14:09 Pulse Rate 101 H 04/09/21 16:35 Respiratory Rate 18 04/09/21 16:35 Blood Pressure 151/82 04/09/21 16:35 Pulse Oximetry 100 04/09/21 16:35 MDM - OB/Uterine Contractions Medical Decision Making Patient's vital signs are stable. CBC/CMP is nonconcerning. Repeat serum hCG (this was ordered prior to knowing she had this performed this morning) was 145. Ultrasound inconclusive but could not confirm an intrauterine gestation. Spoke to Dr. Reich who recommended repeating hCG on Monday. Stated there was no need to repeat US at this time with hcg levels so low. She has an appointment Dr. Packer on Monday that she can follow up regarding hcg results. Return to ED precautions given. Chart reviewed and patient discussed with midlevel. Agree with assessment and plan. Medical Records I reviewed the patient's medical records. Lab Data I reviewed the patient's lab results. : 04/09/21 15:20 04/09/21 15:20 Radiology Impressions Transvaginal US 04/09/21 14:03 IMPRESSION: 1. Cannot confirm intrauterine uterine gestation. There is a tiny amount of fluid along the endometrial canal which could represent a very early gestation of approximately 5 weeks and 1 day. 2. No free fluid or adnexal masses other than the ovaries. 3. Cannot exclude ectopic without confirming intrauterine gestation. Laboratory Results WBC 12.5 10^3/uL (4.0-10.0) H 04/09/21 15:20 RBC 5.03 10^6/uL (4.1-5.3) 04/09/21 15:20 Hgb 13.8 g/dL (11.5-15.3) 04/09/21 15:20 Hct 42.4 % (37.0-47.0) 04/09/21 15:20 MCV 84.3 fl (81-99) 04/09/21 15:20 MCH 27.4 pg (28.0-34.0) L 04/09/21 15: MCHC 32.5 g/dL (30.0-36.0) 04/09/21 15: RDW 13.2 % (12.1-15.1) 04/09/21 15:20 Plt Count 261 10^3/cmm (130-400) 04/09/21 15:20 MPV 9.5 fL (7.4-10.4) 04/09/21 15:20 Neut % (Auto) 72.1 % 04/09/21 15:20 Lymph % (Auto) 20.9 % 04/09/21 15:20 [place] % (Auto) 5.7 % 04/09/21 15:20 Eos % (Auto) 0.5 % 04/09/21 15:20 Baso % (Auto) 0.2 % 04/09/21 15:20 Neut # (Auto) 8.99 10^3/uL (1.8-7.7) H 04/09/21 15:20 Lymph # (Auto) 2.6 10^3/uL (0.8-4.8) 04/09/21 15:20 [place] # (Auto) 0.7 10^3/uL (0.2-0.9) 04/09/21 15:20 Eos # (Auto) 0.1 10^3/uL (0.0-0.8) 04/09/21 15:20 Baso # (Auto) 0.0 10^3/uL (0.0-0.1) 04/09/21 15:20 Nucleated RBC % (auto) 0 % 04/09/21 15: Nucleated RBCs # 0.0 /100WBC 04/09/21 15:20 Sodium 137 mmol/L (136-145) 04/09/21 15:20 Potassium 3.6 mmol/L (3.5-5.1) 04/09/21 15:20 Chloride 102 mmol/L (98-107) 04/09/21 15:20 Carbon Dioxide 25 mmol/L (22-29) 04/09/21 15:20 Anion Gap 13.6 (5-19) 04/09/21 15:20 BUN 8 mg/dL (6-20) 04/09/21 15:20 Creatinine 0.6 mg/dL (0.5-0.9) 04/09/21 15:20 GFR Calculation 121.8 mL/min (90-130) 04/09/21 15:20 Glucose 129 mg/dL (65-115) H 04/09/21 15:20 Calculated Osmolality 284 mOsm/kg (285-295) L 04/09/21 15:20 Calcium 8.5 mg/dL (8.5-10.5) 04/09/21 15:20 Total Bilirubin 0.2 mg/dL (0.15-1.2) 04/09/21 15:20 AST 14 U/L (0-32) 04/09/21 15:20 ALT 24 U/L (0-33) 04/09/21 15:20 Alkaline Phosphatase 82 IU/L (35-105) 04/09/21 15:20 Total Protein 7.0 g/dL (6.6-8.7) 04/09/21 15:20 Albumin 4.5 g/dL (3.5-5.2) 04/09/21 15:20 Globulin 2.5 g/dL (1.3-4.6) 04/09/21 15:20 Ser , Semi-Qnt 145.80 mIU/mL 04/09/21 15:20 Discharge Plan Discharge Patient Disposition: Home Clinical Impression: Threatened miscarriage in early Condition: Stable Prescriptions: No Action amlodipine 5 mg tablet 5 mg PO DAILY Qty: 30 0RF Rx Instructions: 340 B if unaffordable fluoxetine 10 mg tablet 10 mg PO QAM Qty: 30 0RF hydrochlorothiazide 25 mg tablet 25 mg PO QAM Qty: 30 0RF Contrave 8-90 mg tablet extended release 2 tab PO BID Qty: 210 0RF Rx Instructions: 340B ondansetron 4 mg tablet,disintegrating 4 mg PO Q6H PRN (Reason: Nausea) 0RF Discharge Orders: Discharge ED (Routine); Ordered 04/09/21 Ordered By: Randi Ramirez Referrals: Montez,Sunitha, [facility] [Primary Care Provider] - Activity Restrictions/Additional Instructions: As we discussed you have an outpatient order for repeat hCG on Monday morning. Please follow-up with Dr. Packer at your scheduled appointment on Monday. You may return to the emergency department for severe vaginal bleeding, severe pain, or any other concerns you may have. Coding Level of Care Code ED Drug Safety Associate for Chg Fwd Exam Expanded Problem Focused
[2021-04-09 16:35] VITALS: BP 151/82; PULSE 101; RESP 18; O2SAT 100
== END 2021-04-09 16:36 | disposition home or self-care (01) ==
PROVIDERS: Emergency Provider Physician Assistant; PCP Nurse Practitioner Family
DX: O20.0 Threatened abortion (principal); Z3A.01 Less than 8 weeks gestation of pregnancy; Z87.891 Personal history of nicotine dependence
CPT/HCPCS: 76817; 80053; 84702; 85025; 86900; 99283

== ENCOUNTER 2021-04-12 07:29 | Outpatient (CLI) | payer OTHER, SELFPAY | END 2021-04-12 07:30 | disposition home or self-care (01) | PROVIDERS: PCP Nurse Practitioner Family; Visit Provider Physician Assistant | DX: Z34.90 Encounter for supervision of normal pregnancy, unspecified, unspecified trimester (principal) | CPT/HCPCS: 36415; 84702; 87635 ==

== ENCOUNTER 2021-04-12 14:34 | Outpatient (CLI) | payer OTHER, SELFPAY ==
--- NOTE | 2021-04-12 14:37 | US_ITS ---
WS: [id number] TRANSVAGINAL PELVIC ULTRASOUND HISTORY: Z32.00 - Encounter for test, result unknown COMPARISON: None available. Uterus: 7.9 cm x 5.4 cm x 4.6 cm. Normal size anteverted uterus. No fibroid or mass. Endometrium: 0.7 cm. Normal endometrium. Right ovary: 2.3 cm x 2.5 cm x 2.3 cm. Normal size and vascularity, no cystic or solid masses. Left ovary: 2.2 cm x 1.7 cm x 1.7 cm. Normal size and vascularity, no cystic or solid masses. No free fluid. US/US pelvic with transvaginal IMPRESSION: 1. No intrauterine gestational sac. 2. No free fluid. 3. If there is a positive beta hCG ectopic is not excluded. Recommen d close correlation with serial beta hCGs.
== END 2021-04-12 14:35 | disposition home or self-care (01) ==
LOC: RAD 14:34
PROVIDERS: PCP Nurse Practitioner Family; Visit Provider Obstetrics & Gynecology
DX: Z32.00 Encounter for pregnancy test, result unknown (principal)
CPT/HCPCS: 76830; 76856

== ENCOUNTER 2021-04-14 07:45 | Outpatient (CLI) | payer OTHER, SELFPAY ==
[2021-04-14 08:39] LABS: HCG Quantitative 77.71 mIU/mL
== END 2021-04-14 07:46 | disposition home or self-care (01) ==
PROVIDERS: PCP Nurse Practitioner Family; Visit Provider Obstetrics & Gynecology
DX: O02.1 Missed abortion (principal)
CPT/HCPCS: 84702

== ENCOUNTER 2021-04-14 12:21 | Day surgery (SDC) | payer OTHER, SELFPAY ==
[2021-04-13 10:52] VITALS: BMI 37.6
[2021-04-14 12:34] VITALS: BP 166/110; PULSE 95; RESP 18; TEMP 36.2; O2SAT 99
--- NOTE | 2021-04-14 12:41 | ANES.PREANE2 ---
Pre-Anesthetic Assessment Height/Weight: Height 1.75 m Weight 115.666 kg Temp Pulse Resp BP Pulse Ox 97.2 F L 95 18 166/110 99 04/14/21 12:34 04/14/21 12:34 04/14/21 12:34 04/14/21 12:34 04/14/21 12:34 Preop Diagnosis: Missed AB Operation Date: 04/14/21 13:55 Proposed Procedures p Dilation And Curettage w/ Suction O02.1(Not Applicable) - Paul Ballesteros MD Familial anesthetic complications: None Was Beta Nasim taken within 24 hours: N/A Was Clonidine taken within 24 hours: N/A Last intake: Intake Last Liquid Date 04/13/21 Last Liquid Time 21:00 Last Solid Date 04/13/21 Last Solid Time 19:00 Social Tobacco and No alcohol Exam alert, oriented x 3, clear to auscultation bilaterally and regular rate & rhythm Airway Submandibular: within normal limits Cervical ROM: within normal limits Mallampati: Class II Dentition: full History/ROS No significant complaints Pulmonary None reported METS = 4 CV/HEM None reported None reported Hepatic None reported GI None reported Metabolic None reported Musc/skel None reported Neuropsych Anxiety and Depression Anesthetic Plan ASA status: 2 Anesthesia: Anesthesia Evaluation and General Other: We discussed risk and benefits of general anesthesia including PONV, sore throat (sometimes severe), corneal abrasion, positioning and peripheral nerve injuries, life threatening allergic reaction, post operative ICU admission requiring prolonged intubation, stroke, heart attack, , and rare incidences of recall. Patient consents to proceed with general anesthesia. Risk of > 500 ml blood loss (7ml/kg in children): No Medications/Allergies Home Medications Medication Instructions Recorded Confirmed Last Taken Type ondansetron 4 mg disintegrating 4 mg PO Q6H PRN 04/09/21 04/13/21 04/10/21 History tablet hydrocodone 5 mg-acetaminophen 325 1 tab PO Q4H PRN 7 Days #15 tab 04/12/21 04/14/21 04/14/21 07:30 Rx mg tablet Allergies Allergy/AdvReac Type Severity Reaction Status Date / Time lorazepam [From Ativan] Allergy ADR-Halluci Verified 04/12/21 15:41 nating Penicillins Allergy ALGY-Rash Verified 04/12/21 15:41 Sulfa (Sulfonamide Allergy ALGY-Rash Verified 04/12/21 15:41 Antibiotics) [facility] Anesthesia Medical History Anxiety Depression FHx: kidney cancer Renal cell carcinoma of right kidney Surgical History History of cholecystectomy History of kidney surgery History of tonsillectomy and adenoidectomy Hx of partial nephrectomy Family History Mother Hypertension Stroke Father Hypertension Grandmother Stroke maternal Breast cancer, Onset Age: 68 maternal Grandfather Heart disease maternal Colon cancer, Onset Age: 72 paternal Denies family history of Ovarian cancer Diabetes Clotting disorder Hyperlipidemia Anesthesia complication Bleeding disorder Uterine cancer Thyroid condition Social History Smoking and tobacco status: current every day smoker cigarettes [ Other cigarette details: less than 0.5 ppd ] Alcohol intake: former Former alcohol use details: prior to Female Reproductive History Date of last menstrual period: 03/05/21 Data Anesthesia Cardiac Studies: Echocardiogram Ultrasound 11/21/19 Cardiac Event Monitor 11/01/19
[2021-04-14] MEDS: sodium chloride 0.9% 1,000 ML 30 ML IV (12:54)
[2021-04-14] MEDS: scopolamine 1.5 Patch 1 PATCH TRANSDERMA (12:54)
[2021-04-14] MEDS: sodium chloride 0.9% 500 ML IV (12:58)
[2021-04-14 13:14] LABS: Basophils % 0.3 %; Eosinophils # 0.1 10^3/uL (0.0-0.8); Eosinophils % 0.7 %; Hematocrit 42.4 % (37.0-47.0); Hemoglobin 13.8 g/dL (11.5-15.3); Lymphocytes % 28.6 %; Mean Corpuscular HGB Conc 32.5 g/dL (30.0-36.0); Mean Corpuscular Hemoglobin 27.2 pg (28.0-34.0); Mean Corpuscular Volume 83.6 fl (81-99); Mean Platelet Volume 9.5 fL (7.4-10.4); Monocytes # 0.7 10^3/uL (0.2-0.9); Monocytes % 6.7 %; Neutrophils # 6.54 10^3/uL (1.8-7.7); Neutrophils % 62.8 %; Nucleated Red Blood Cells % 0 %; Platelet Count 293 10^3/cmm (130-400); Red Blood Count 5.07 10^6/uL (4.1-5.3); Red Cell Distribution Width 13.2 % (12.1-15.1); White Blood Count 10.4 10^3/uL (4.0-10.0)
[2021-04-14 13:52] LABS: Alanine Aminotransferase 30 U/L (0-33); Albumin Level 4.4 g/dL (3.5-5.2); Alkaline Phosphatase 84 IU/L (35-105); Anion Gap 15.9 (5-19); Aspartate Amino Transferase 19 U/L (0-32); Blood Urea Nitrogen 8 mg/dL (6-20); Calcium 9.5 mg/dL (8.5-10.5); Carbon Dioxide 24 mmol/L (22-29); Chloride 104 mmol/L (98-107); Globulin 2.7 g/dL (1.3-4.6); Glomerular Filtration Rate 121.8 mL/min (90-130); Glucose 83 mg/dL (65-115); Osmolality Calculated 287 mOsm/kg (285-295); Potassium 3.9 mmol/L (3.5-5.1); Sodium 140 mmol/L (136-145); Total Bilirubin 0.3 mg/dL (0.15-1.2); Total Protein 7.1 g/dL (6.6-8.7)
--- NOTE | 2021-04-14 14:30 | W.PM.OPSUD ---
Surgery/Procedure H&P Update DATE OF PROCEDURE: April 14, 2021 DATE H&P PERFORMED: 04/12/21 H&P UPDATE INFORMATION: I have reviewed H&P completed within last 30 days and No changes to prior documentation PREOP DIAGNOSIS: Missed AB PLANNED PROCEDURE: Operation Date: 04/14/21 13:55 Proposed Procedures p Dilation And Curettage w/ Suction O02.1(Not Applicable) - Paul Ballesteros MD
--- NOTE | 2021-04-14 15:02 | PM.OP ---
Operative Report Date of procedure: April 14, 2021 Pre-op diagnosis: Preop Diagnosis Missed AB Post-op findings: Product of conception Procedure done: Suction D&C Specimens removed/disposition: Product of conception Pathology: Endometrial curettings and products of conception Surgeon: Paul Ballesteros MD Estimated blood loss (mL): 10 IV fluids (mL): 300 Complications: None Findings: Vaginal bleeding Procedure: After informed consent, the patient was taken to the Operating Room where general anesthesia was administered. The patient was examined under anesthesia and found to have a normal uterus with normal adnexa. She was placed in the dorsal lithotomy position and prepped and draped in sterile fashion. A sterile weighted speculum was placed in the patient?s vagina. A single-tooth tenaculum was then applied to the cervix. The uterus was then gently sounded to 8 cm and a suction curette was advanced gently to the uterine fundus and product of conception emptied. A sharp curettage was then performed until a gritty texture was noted. There was minimal bleeding noted and the tenaculum was removed with good hemostasis noted. The patient tolerated the procedure well. The patient was taken to the recovery area in stable condition.
[2021-04-14 15:08] VITALS: BP 164/121; PULSE 105; RESP 20; TEMP 36.8; O2SAT 98
[2021-04-14 15:13] VITALS: BP 160/101; PULSE 95; RESP 16; O2SAT 98
[2021-04-14 15:18] VITALS: BP 160/96; PULSE 91; RESP 16; O2SAT 98
[2021-04-14 15:29] VITALS: BP 155/106; PULSE 87; RESP 18; TEMP 36.1; O2SAT 97
[2021-04-14 15:49] VITALS: BP 150/111; PULSE 79; RESP 18; O2SAT 97
--- NOTE | 2021-04-14 16:54 | ANE.PACU2 ---
Inpatient post-anesthesia follow up: Airway intact: Yes Vital signs: Temperature 97 F Pulse Rate 79 Respiratory Rate 18 Blood Pressure 150/111 Pulse Oximetry 97 Oxygen Delivery Me thod Room Air Oxygen Flow Rate Fraction of Inspir ed Oxygen Hydration adequate: Yes Nausea and vomiting: No Pain level: 1 Mental status: Baseline
== END 2021-04-14 16:10 | disposition home or self-care (01) ==
PROVIDERS: PCP Nurse Practitioner Family; Visit Provider Obstetrics & Gynecology
PROC: (CPT 59820; principal; 2021-04-14 13:55)
DX: O02.1 Missed abortion (principal); Z3A.00 Weeks of gestation of pregnancy not specified; F41.9 Anxiety disorder, unspecified; F32.9 Major depressive disorder, single episode, unspecified; Z80.51 Family history of malignant neoplasm of kidney; Z90.5 Acquired absence of kidney; Z80.0 Family history of malignant neoplasm of digestive organs; Z82.49 Family history of ischemic heart disease and other diseases of the circulatory system; F17.210 Nicotine dependence, cigarettes, uncomplicated
CPT/HCPCS: 59820; 80053; 85025; 86850; 86900; 87086; 88305; J1100; J2250; J2405; J2704; J3010; J7030; J7040

== ENCOUNTER → 2021-04-16 13:43 | Outpatient (BNVA) | payer OTHER, SELFPAY | PROVIDERS: PCP Nurse Practitioner Family; Visit Provider Obstetrics & Gynecology | DX: O02.1 Missed abortion (principal) | CPT/HCPCS: 84702 ==

== ENCOUNTER 2021-04-26 07:47 | Outpatient (CLI) | payer OTHER, SELFPAY | END 2021-04-26 07:48 | disposition home or self-care (01) | PROVIDERS: PCP Nurse Practitioner Family; Visit Provider Nurse Practitioner Family | DX: O02.1 Missed abortion (principal) | CPT/HCPCS: 36415; 84702 ==

== ENCOUNTER 2021-05-30 16:27 | Inpatient (IN) | payer OTHER, SELFPAY ==
--- NOTE | 2021-05-30 16:37 | ECG_ITS ---
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 Measurements Intervals [place] Rate: 90 P: 56 AR: 134 QRS: 22 QRSD: 90 T: 14 QT: 349 QTc: 429 Interpretive Statements SINUS RHYTHM POSSIBLE RIGHT VENTRICULAR CONDUCTION DELAY [RSR (QR) IN V1/V2] No previous ECG available for comparison Electronically Signed On 05-31-2021 22:06:18 CDT by Migel Burnett M.D. [id number]
--- NOTE | 2021-05-30 16:56 | W.ED.PSYCHS ---
HPI - Psych General: Chief Complaint: Anxiety Stated Complaint: SI Time Seen by Provider: 05/30/21 16:31 History of Present Illness: 25-year-old female presents with suicidal ideations. Patient also presents with what she is describing is accidental overdose. Patient took a total of 3 mg clonidine over about a 10-minute. Along with 80 mg of fluoxetine. Patient reports that she was very anxious and thought it would help so she just kept taking the clonazepam because she was not better and then took some extra fluoxetine. Patient reports at that time she was not trying to kill herself. Patient presents however she has been struggling with suicidal ideations for a couple months and states that she does have a plan. She states he has a plan is in the bathtub and slit her wrist. Patient reports has been worse since a miscarriage in April with a D&C and she has had a harder time struggling since then. Patient reports that she goes to a psychiatrist monthly but does not feel that it is helping. Patient has some mild nausea but no other associated symptoms. Associated symptoms: Reports depression and suicidal ideation; Deny homicidal ideation Review of Systems Const: Denies: fever(s) or chills Eyes: Denies: change in vision ENMT: Denies: throat pain Card: Denies: chest pain, irregular heart rhythm or lightheadedness Resp: Denies: dyspnea, productive cough or wheezing GI: Reports: nausea; Denies: abdominal pain, vomiting, diarrhea or constipation Musc: Denies: neck pain or back pain Neuro: Denies: headache(s), numbness in extremities or dizziness Psych: Reports: anxiety, depression, panic attacks and suicidal ideation; Denies: homicidal ideation [facility] ED PFSH: Medical History Anxiety Depression FHx: kidney cancer Psychiatric care Renal cell carcinoma of right kidney Surgical History History of cholecystectomy History of kidney surgery History of tonsillectomy and adenoidectomy Hx of partial nephrectomy Family History Mother Hypertension Stroke Father Hypertension Grandmother Stroke maternal Breast cancer, Onset Age: 68 maternal Grandfather Heart disease maternal Colon cancer, Onset Age: 72 paternal Denies family history of Ovarian cancer Diabetes Clotting disorder Hyperlipidemia Anesthesia complication Bleeding disorder Uterine cancer Thyroid condition Social History (Updated 04/30/21 @ 11:02 by Purnima Hernández RN) Smoking and tobacco status: current every day smoker cigarettes [ Other cigarette details: less than 0.5 ppd ] Quit status (tobacco): has tried quititng Second hand smoke exposure: No Smoking risk assessment/counseling performed?: Yes Tobacco counseling given: provider counseling, support medications and counseling >3 minutes Alcohol intake: current Alcohol intake frequency: holidays/special occasions only Female Reproductive History: Date of last menstrual period: 03/05/21 Spontaneous abortions: Yes Physical Exam Const: GENERAL APPEARANCE: cooperative, well kempt and anxious; not ill appearing ORIENTATION/CONSCIOUSNESS: Yes oriented to person, Yes oriented to place and Yes oriented to time HENMT: COMMON NORMALS: normocephalic, hearing grossly normal bilaterally and moist oral mucous membranes HEAD & SCALP: normocephalic Chest: COMMONS NORMALS: normal inspection of the chest Resp: COMMON NORMALS: normal respiratory effort, No retractions and No use of accessory muscles Cardio: COMMON NORMALS: regular rate, regular rhythm and Peripheral pulses 2+ throughout RATE: regular rate RHYTHM: regular rhythm PERIPHERAL PULSES: Peripheral pulses 2+ throughout GI: COMMON NORMALS: Normal to inspection, nondistended, normoactive bowel sounds present, Soft to palpation and non-tender PALPATION: Yes Soft to palpation Extremity: COMMON NORMALS: normal to inspection, full ROM and capillary refill normal Neuro: SENSORIUM/ORIENTATION: Yes oriented to person, Yes oriented to place and Yes oriented to time Psych: COMMON NORMALS: Normal thought process present APPEARANCE: Yes well kempt SPEECH: Yes rapid MOOD & AFFECT: Yes depressed mood and Yes anxious THOUGHT PROCESS: Normal thought process present THOUGHT CONTENT: Yes Suicidality present ATTENTION/CONCENTRATION: Yes attention grossly intact Course Vital Signs: Vital signs: Vital Signs Temperature 97.5 F L 05/30/21 17:13 Pulse Rate 66 05/30/21 17:13 Respiratory Rate 18 05/30/21 17:13 Blood Pressure 146/97 05/30/21 17:13 Pulse Oximetry 96 05/30/21 17:13 MDM - Psych Medical Decision Making Patient complains of suicidal ideations. She is asking for help and reports that she has a plan but would like to have help and feels like she is struggling on outpatient basis. Patient to be admitted to Dr. Pradhan to the psychiatric floor pending normal labs. Patient was stable throughout her stay in the ER and admitted. Discharge Plan Discharge Patient Disposition: Admitted As Inpatient Clinical Impression: Depression with suicidal ideation, Accidental overdose Condition: Stable Coding Level of Care Code ED Well Puller for Taniya Kaufman Exam Comprehensive
[2021-05-30 17:13] VITALS: BP 146/97; PULSE 66; RESP 18; TEMP 36.4; O2SAT 96
[2021-05-30 17:15] VITALS: BMI 35.4
[2021-05-30 18:23] LABS: Basophils % 0.4 %; Eosinophils % 0.4 %; Hematocrit 45.3 % (37.0-47.0); Hemoglobin 15.5 g/dL (11.5-15.3); Lymphocytes # 3.3 10^3/uL (0.8-4.8); Lymphocytes % 33.1 %; Mean Corpuscular HGB Conc 34.2 g/dL (30.0-36.0); Mean Corpuscular Hemoglobin 27.3 pg (28.0-34.0); Mean Corpuscular Volume 79.9 fl (81-99); Mean Platelet Volume 10.4 fL (7.4-10.4); Monocytes # 0.9 10^3/uL (0.2-0.9); Monocytes % 8.6 %; Neutrophils # 5.69 10^3/uL (1.8-7.7); Neutrophils % 57.2 %; Nucleated Red Blood Cells % 0 %; Platelet Count 333 10^3/cmm (130-400); Red Blood Count 5.67 10^6/uL (4.1-5.3); Red Cell Distribution Width 13.3 % (12.1-15.1); White Blood Count 9.9 10^3/uL (4.0-10.0)
[2021-05-30 18:54] LABS: Alanine Aminotransferase 19 U/L (0-33); Albumin Level 4.8 g/dL (3.5-5.2); Alkaline Phosphatase 92 IU/L (35-105); Anion Gap 19.5 (5-19); Aspartate Amino Transferase 14 U/L (0-32); Blood Urea Nitrogen 9 mg/dL (6-20); Calcium 8.8 mg/dL (8.5-10.5); Carbon Dioxide 21 mmol/L (22-29); Chloride 102 mmol/L (98-107); Globulin 2.6 g/dL (1.3-4.6); Glucose 66 mg/dL (65-115); Osmolality Calculated 285 mOsm/kg (285-295); Potassium 3.5 mmol/L (3.5-5.1); Sodium 139 mmol/L (136-145); Total Bilirubin 0.5 mg/dL (0.15-1.2); Total Protein 7.4 g/dL (6.6-8.7)
[2021-05-30 18:56] LABS: Acetaminophen < 5.0 ug/mL (10-30); Salicylate < 0.3 mg/dL (3-10)
[2021-05-30 19:37] VITALS: BP 151/103; PULSE 106; RESP 18; TEMP 36.8; O2SAT 96
[2021-05-30 19:53] LABS: HCG Qualitative Urine. Negative (Negative)
[2021-05-30 19:57] LABS: Add Urine Microscopic? YES; Bilirubin Urine 1+ (Negative); Blood Urine 2+ (Negative); Glucose Urine UA Norm (Normal); Ketones Urine 2+ (Negative); Leukocyte Esterase Urine Negative (Negative); Nitrate Urine Negative (Negative); Protein Urine Neg (Negative); Specific Gravity, Urine 1.015 (1.005-1.030); Urine Appearance Clear (CLEAR); Urine Color Yellow (Yellow); Urobilinogen Urine 1 mg/dL (Negative); pH Urine 6.5 (5-7)
[2021-05-30 19:59] LABS: Add Urine Culture? No; Bacteria Urine 3+ /hpf; RBC Urine 15-25 /hpf (0-2); Squamous Epithelial Cell Urine 25-40 /hpf (0-5); WBC Urine 0-4 /hpf (0-5)
--- NOTE | 2021-05-30 20:09 | PC.NURSE ---
Note delayed due to patient care. Patient upon arrival to ER was placed in pozo bed by room 12, sitter with patient. Patient safe and stable at time of arrival. Patient reports sadness, depression and the want to kill herself by slitting wrists and being in the tub. Patient states she took more medication than prescribed, poison control called and stated not dangerous amount of those medications.
[2021-05-30 20:19] LABS: Amphetamines Screen Urine Negative (Negative); Barbiturates Screen Urine Negative (Negative); Benzodiazepines Screen Urine Positive (Negative); Cocaine Screen Urine Negative (Negative); Opiate Screen Urine Negative (Negative); PCP Screen Urine Negative (Negative); THC Screen Urine Negative (Negative)
[2021-05-30] MEDS: trazodone 50 mg Tablet PO (21:01)
[2021-05-30 21:05] VITALS: BP 151/103; PULSE 106; RESP 18; TEMP 36.8; O2SAT 96
--- NOTE | 2021-05-30 23:55 | PC.ADMIT ---
Admission Note: 25-year-old female presents with suicidal ideations. Patient also presents with what she is describing is accidental overdose. Patient took a total of 3 mg clonidine over about a 10-minute. Along with 80 mg of fluoxetine. Patient reports that she was very anxious and thought it would help so she just kept taking the clonazepam because she was not better and then took some extra fluoxetine. Patient reports at that time she was not trying to kill herself. Patient presents however she has been struggling with suicidal ideations for a couple months and states that she does have a plan. She states he has a plan is in the bathtub and slit her wrist. Patient reports has been worse since a miscarriage in April with a D&C and she has had a harder time struggling since then. Patient reports that she goes to a psychiatrist monthly but does not feel that it is helping. Patient has some mild nausea but no other associated symptoms. Associated symptoms: Reports depression and suicidal ideation; Patient had a miscarriage in April. She has been seeing a therapist and has been taking Prozac which has been increased twice and is still not helping with the depression. She has high anxiety and takes 2-3 doses of Buspar daily for that. She recently was put on Clonopin and states she took 6 doses of it today with no resolve. She has lost about 40 lbs since February which most of it has been involuntary. She graduates from college in June with a Bachelors Degree in Psych. The patient,Ping Hearn,25 y/o, was given written information regarding hospital policies, unit procedures and contact persons. Patient's smoking status: current every day smoker. Vital Signs - 8 hr 05/30/21 17:13 05/30/21 19:37 05/30/21 21:05 Temperature 97.5 F L 98.3 F 98.3 F Pulse Rate 66 106 H 106 H Respiratory Rate 18 18 18 Blood Pressure 146/97 151/103 151/103 Pulse Oximetry 96 96 96
[2021-05-31 06:00] VITALS: BP 122/81; PULSE 85; RESP 18; TEMP 36.7; O2SAT 97
[2021-05-31] MEDS: amlodipine 5 mg Tablet PO (08:28)
[2021-05-31] MEDS: hyDROXYzine 25 mg Capsule 50 MG PO (08:47)
[2021-05-31] MEDS: fluoxetine 20 mg Capsule 40 MG PO (09:57)
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
[2021-05-31] MEDS: nicotine 2 mg Gum BUCCAL ×2 (13:01→16:55)
[2021-05-31 14:00] VITALS: BP 133/91; PULSE 114; RESP 18; TEMP 36.5; O2SAT 96
[2021-05-31] MEDS: ARIPiprazole 10 mg Tablet 5 MG PO (16:51)
--- NOTE | 2021-05-31 17:10 | PC.NURSE ---
Patient given written information on Abilify.
[2021-05-31] MEDS: OLANZapine 5 mg ODT PO (17:47)
[2021-05-31] MEDS: trazodone 50 mg Tablet PO (19:19)
[2021-05-31 21:04] VITALS: BP 107/65; PULSE 83; RESP 17; TEMP 36.4; O2SAT 96
[2021-06-01 06:00] VITALS: BP 109/67; PULSE 78; RESP 17; TEMP 36.4; O2SAT 98
[2021-06-01] MEDS: hydroCHLOROthiazide 25 mg Tablet PO (06:01)
[2021-06-01] MEDS: ARIPiprazole 10 mg Tablet 5 MG PO (09:24)
[2021-06-01] MEDS: fluoxetine 20 mg Capsule 40 MG PO (09:24)
[2021-06-01] MEDS: amlodipine 5 mg Tablet PO (09:27)
[2021-06-01] MEDS: nicotine 2 mg Gum BUCCAL ×3 (09:28→18:35)
--- NOTE | 2021-06-01 10:35 | P.NPUPN_ITS ---
Subjective NPU Subjective: Patient presents today reporting that things are still on edge. She reports continued anxiety. She endorses continued depression but denies any side effects or problems from the Abilify. We discussed the risks, benefits and alternatives of increasing her BuSpar to 15 mg p.o. 3 times daily, and adding Inderal 20 mg p.o. 3 times daily as needed for anxiety. We discussed expectations as far as the impact of the antidepressant properties of increasing Prozac and adding the Abilify. She reports that she is eating okay and sleeping still difficult. Mental Status Exam MSE Comments: This is an obese white female in hospital scrubs with adequate grooming and limited eye contact.? No abnormal movements except for mild psychomotor retardation.? Cooperative with exam in mild distress.? Speech was decreased rate and normal volume.? Mood described as depressed affect subdued.? Thought process organized.? Thought content: Patient denied suicidal or homicidal ideation currently but had had suicidal ideation prior to admission and says she would have followed through with something if she did not get help.? There were no delusions reported or noted, she denied any auditory or visual hallucinations.? Attention and concentration were intact and memory appeared reliable but none were formally tested.? She is alert and oriented x3.? Insight and judgment appear fair, impulse control is impaired. Vitals/I&O/Wt Last Vital Signs Temp 97.6 F 06/01/21 06:00 Pulse 78 06/01/21 06:00 Resp 17 06/01/21 06:00 BP 109/67 06/01/21 06:00 Pulse Ox 98 06/01/21 06:00 Weight last 48 hrs Weight 108.862 kg Data NPU : 05/30/21 17:30 05/30/21 17:30 A&P Assessment and plan (1) Depression with suicidal ideation: Status: Acute (2) Accidental overdose: Status: Acute (3) MDD (major depressive disorder): Status: Acute (4) Hypertension: Status: Acute (5) Anxiety: Status: Acute Plan This is a 25-year-old white female with a long history of depression, anxiety with a history of treatment since her teenage years here on her first inpatient stay reporting significant suicidal thoughts with recent medication adjustment as recent as Monday. 1.? Continue current medication.? We will maintain the Prozac at 40 mg as was a started a few days ago and added Abilify 5 mg p.o. daily a.m. increase BuSpar to 15 mg p.o. 3 times daily scheduled instead and Inderal 20 mg p.o. 3 times daily as needed. 2.? Continue every 15 minute checks for safety. 3.? Encourage individual, group and milieu therapies. 4.? Encourage sober living treatment after discharge at the highest level of care to which he is willing to commit. Involuntary Hold Information 96 Hour Hold: 96 Hour Involuntary Admission: No Attestations NPU Medical Necessity Statement*: Inpatient hospitalization is medically necessary and the clinically appropriate intervention at this time. We will monitor medication to make changes as indicated. Likely length of stay 2-4 days. 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
[2021-06-01] MEDS: BuSPIRONE 10 mg Tablet PO (12:22)
[2021-06-01 14:00] VITALS: BP 134/82; PULSE 125; RESP 18; TEMP 36.6; O2SAT 96
[2021-06-01] MEDS: OLANZapine 5 mg ODT PO (16:10)
[2021-06-01 20:24] VITALS: BP 124/74; PULSE 101; RESP 17; TEMP 36.4; O2SAT 97
[2021-06-01] MEDS: trazodone 50 mg Tablet PO (20:38)
[2021-06-02 06:00] VITALS: BP 118/78; PULSE 73; RESP 16; TEMP 36.4; O2SAT 96
[2021-06-02] MEDS: hydroCHLOROthiazide 25 mg Tablet PO (06:10)
[2021-06-02] MEDS: fluoxetine 20 mg Capsule 40 MG PO (08:17)
[2021-06-02] MEDS: BuSPIRONE 10 mg Tablet PO ×2 (08:17→16:21)
[2021-06-02] MEDS: nicotine 2 mg Gum BUCCAL ×3 (08:17→18:46)
[2021-06-02] MEDS: amlodipine 5 mg Tablet PO (08:17)
[2021-06-02] MEDS: ARIPiprazole 10 mg Tablet 5 MG PO ×2 (08:17→17:46)
--- NOTE | 2021-06-02 08:19 | PC.NURSE ---
PRN BUSPAR 10 MG GIVEN PO PER PT C/O STATED ANXIETY
--- NOTE | 2021-06-02 13:57 | W.PM.NPUPNS ---
Subjective NPU Subjective: Patient presents today reporting that she is working with the social work team on getting the paperwork for her to take a leave of absence to try to manage her current situation. She reports having this process in motion is making her feel much less stressed. She reports she feels the medication is helping and she feels optimistic that things are going to improve. She reports he is eating and sleeping okay and we discussed the likelihood of discharge tomorrow. Mental Status Exam MSE Comments: This is an obese white female in hospital scrubs with adequate grooming and limited eye contact.? No abnormal movements except for mild psychomotor retardation.? Cooperative with exam in no acute distress.? Speech was slightly decreased rate and normal volume.? Mood described as a little better, affect subdued.? Thought process organized.? Thought content: Patient denied suicidal or homicidal ideation, there were no delusions reported or noted, she denied any auditory or visual hallucinations.? Attention and concentration were intact and memory appeared reliable but none were formally tested.? She is alert and oriented x3.? Insight and judgment appear fair, impulse control is limited, but improving. Vitals/I&O/Wt Last Vital Signs Temp 97.5 F L 06/02/21 06:00 Pulse 73 06/02/21 06:00 Resp 16 06/02/21 06:00 BP 118/78 06/02/21 06:00 Pulse Ox 96 06/02/21 06:00 Data NPU : 05/30/21 17:30 05/30/21 17:30 A&P Assessment and plan (1) Depression with suicidal ideation: Status: Acute (2) Accidental overdose: Status: Acute (3) MDD (major depressive disorder): Status: Acute (4) Anxiety: Status: Acute (5) Hypertension: Status: Acute Plan This is a 25-year-old white female with a long history of depression, anxiety with a history of treatment since her teenage years here on her first inpatient stay reporting significant suicidal thoughts with recent medication adjustment as recent as Monday. 1.? Continue current medication.? We will maintain the Prozac at 40 mg as was a started a few days ago and increased Abilify to 10 mg p.o. daily a.m. increased BuSpar to 15 mg p.o. 3 times daily scheduled instead and Inderal 20 mg p.o. 3 times daily as needed. 2.? Continue every 15 minute checks for safety. 3.? Encourage individual, group and milieu therapies. 4.? Encourage sober living treatment after discharge at the highest level of care to which he is willing to commit. Involuntary Hold Information 96 Hour Hold: 96 Hour Involuntary Admission: No Attestations NPU Medical Necessity Statement*: Inpatient hospitalization is medically necessary and the clinically appropriate intervention at this time. We will monitor medication to make changes as indicated. Likely length of stay 1-3 days. Coding Level of Care Code Acute Switch Adjuster for g Fwd Diagnoses Depression with suicidal ideation F32.A; R45.851 Accidental overdose T50.901A MDD (major depressive disorder) F32.9 Anxiety F41.9 Hypertension I10
[2021-06-02 14:00] VITALS: BP 134/81; PULSE 96; RESP 18; TEMP 36.6; O2SAT 98
--- NOTE | 2021-06-02 16:21 | PC.NURSE ---
PRN BUSPAR 10 MG GIVEN PO PER PT C/O STATED ANXIETY. WILL CONT TO MONITOR
[2021-06-02] MEDS: trazodone 50 mg Tablet PO (20:13)
[2021-06-02] MEDS: propranolol 20 mg Tablet PO (20:13)
[2021-06-02 21:23] VITALS: BP 140/94; PULSE 106; RESP 18; TEMP 36.5; O2SAT 96
[2021-06-03 06:00] VITALS: BP 100/60; PULSE 73; RESP 16; TEMP 36.7; O2SAT 97
[2021-06-03] MEDS: hydroCHLOROthiazide 25 mg Tablet PO (06:37)
[2021-06-03] MEDS: BuSPIRONE 10 mg Tablet 15 MG PO (08:45)
[2021-06-03] MEDS: fluoxetine 20 mg Capsule 40 MG PO (08:45)
[2021-06-03] MEDS: nicotine 2 mg Gum BUCCAL ×2 (08:46→12:09)
[2021-06-03] MEDS: amlodipine 5 mg Tablet PO (08:46)
[2021-06-03] MEDS: ARIPiprazole 10 mg Tablet PO (08:46)
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
[2021-06-03 12:24] VITALS: BP 100/60; PULSE 73; RESP 16; TEMP 36.7; O2SAT 97
--- NOTE | 2021-06-03 12:53 | PC.NURSE ---
Discharge Note To room to complete discharge teaching. All discharge teaching completed with medications reviewed. Went over all appointments. Voices understanding. Signed property sheet that she is receiving all her property at time of discharge. notified by patient and will be here shortly. All questions answered and support voiced.
== END 2021-06-03 13:07 | disposition home or self-care (01) | DRG 918 ==
LOC: ER 17:31 → NP 18:02
PROVIDERS: Admitting Provider Psychiatry & Neurology Psychiatry; Emergency Provider Student in an Organized Health Care Education/Training Program; PCP Nurse Practitioner Family; Visit Provider Psychiatry & Neurology Psychiatry
DX: T46.5X1A Poisoning by other antihypertensive drugs, accidental (unintentional), initial encounter (principal); R45.851 Suicidal ideations; T43.221A Poisoning by selective serotonin reuptake inhibitors, accidental (unintentional), initial encounter; F32.9 Major depressive disorder, single episode, unspecified; F41.9 Anxiety disorder, unspecified; Z85.528 Personal history of other malignant neoplasm of kidney; Z90.5 Acquired absence of kidney; F17.210 Nicotine dependence, cigarettes, uncomplicated; E66.9 Obesity, unspecified; Z68.35 Body mass index [BMI] 35.0-35.9, adult; K76.9 Liver disease, unspecified; I10 Essential (primary) hypertension; Z79.890 Hormone replacement therapy
CPT/HCPCS: 80053; 80306; 80307; 81001; 81025; 85025; 93005; 97150; 97165; 99285

== ENCOUNTER → 2021-08-05 08:26 | Outpatient (BNVA) | payer OTHER, SELFPAY | PROVIDERS: PCP Nurse Practitioner Family; Visit Provider Obstetrics & Gynecology | DX: Z32.01 Encounter for pregnancy test, result positive (principal) | CPT/HCPCS: 84702 ==

== ENCOUNTER → 2021-08-10 07:58 | Outpatient (BNVA) | payer OTHER, SELFPAY | PROVIDERS: PCP Nurse Practitioner Family; Visit Provider Obstetrics & Gynecology | DX: Z32.01 Encounter for pregnancy test, result positive (principal) | CPT/HCPCS: 84702 ==

== ENCOUNTER 2021-08-12 08:40 | Emergency (ER) | payer OTHER, SELFPAY ==
[2021-08-12 08:57] VITALS: BP 162/89; PULSE 102; RESP 16; O2SAT 99; BMI 36.1
--- NOTE | 2021-08-12 09:04 | ED_ITS ---
HPI - Female Genitourinary General: Chief complaint: Vaginal Bleeding Stated complaint: -vaginal bleeding Time Seen by Provider: 08/12/21 08:47 Source: patient Mode of arrival: ambulatory Limitations: no limitations History of Present Illness: Patient is a [id number] female here for evaluation of positive and bleeding. Patient states 2 weeks ago she had a feeling so she took a home test and it was positive. She contacted her OB Dr. Ballesteros who ordered an hCG quant she states this was roughly 800. She states it was repeated approximately 5 days later and was roughly 3000. She states they are in the process of scheduling her for a dating ultrasound. She states she is not sure how far along she is as she had a miscarriage back in April and subsequently had a D&C. She states vaginal bleeding/periods have been sporadic since then. She states bleeding started yesterday and describes it as spotting . States she is concerned as this is how her last miscarriage s tarted. She is having some minor pelvic cramping. MD elicited complaint: vaginal bleeding and other (confirmed ) Pertinent past history: prior miscarriages (one) Vaginal discharge: none Vaginal bleeding: scant Exacerbating factors: none Relieving factors: none Associated symptoms: Reports no associated symptoms; Deny abdominal pain, headache(s) or nausea Treatment prior to arrival: none Sexual activity: Yes Patient : Yes Date of Last Menstrual Period: 05/30/21 Review of Systems Const: Denies: fever(s), chills, body aches, fatigue or malaise Card: Denies: chest pain Resp: Denies: dyspnea GI: Denies: abdominal pain, nausea, vomiting or diarrhea : Reports: vaginal bleeding and pelvic pain (reports mild cramping); Denies: flank pain or dysuria Musc: Denies: back pain Skin/Breast: Denies: rash Neuro: Denies: headache(s) PFSH ED PFSH: Medical History Anxiety Depression FHx: kidney cancer Psychiatric care Renal cell carcinoma of right kidney Surgical History History of cholecystectomy History of kidney surgery History of tonsillectomy and adenoidectomy Hx of partial nephrectomy Family History Mother Hypertension Stroke Father Hypertension Grandmother Stroke maternal Breast cancer, Onset Age: 68 maternal Grandfather Heart disease maternal Colon cancer, Onset Age: 72 paternal Denies family history of Ovarian cancer Diabetes Clotting disorder Hyperlipidemia Anesthesia complication Bleeding disorder Uterine cancer Thyroid condition Social History Smoking and tobacco status: current every day smoker cigarettes Packs smoked per day: 0.5 Years cigarettes smoked: 8 Quit status (tobacco): has tried quititng Second hand smoke exposure: Yes Smoking risk assessment/counseling performed?: Yes Tobacco counseling given: provider counseling, support medications and counseling >3 minutes Alcohol intake: current Alcohol intake frequency: holidays/special occasions only Female Reproductive History: Date of last menstrual period: 05/30/21 Spontaneous abortions: Yes Physical Exam Const: COMMON NORMALS: no acute distress, patient oriented x3, no limitations and alert GENERAL APPEARANCE: cooperative NUTRITIONAL APPEARANCE: overweight ORIENTATION/CONSCIOUSNESS: Yes awake, Yes oriented to person, Yes oriented to place and Yes oriented to time Resp: COMMON NORMALS: normal respiratory effort and clear to auscultation bilaterally AUSCULTATION: clear to auscultation bilaterally Cardio: COMMON NORMALS: regular rate and regular rhythm RATE: regular rate RHYTHM: regular rhythm GI: COMMON NORMALS: Normal to inspection, nondistended, normoactive bowel sounds present, Soft to palpation and non-tender INSPECTION: Yes normal to inspection PALPATION: Yes Soft to palpation : COMMON NORMALS: Yes no CVA tenderness BLADDER/KIDNEY EXAM: Yes no CVA tenderness OTHER: deferred Back/Pelvis: COMMON NORMALS: no CVA tenderness Neuro: JOANA COMA SCALE: document GCS findings [place] coma scale eye opening: Spontaneous Joana coma scale verbal response: Orientated [place] coma scale motor response: Obey commands Joana coma scale total score: 15 COMMON NORMALS: patient oriented x3 SENSORIUM/ORIENTATION: Yes alert, Yes oriented to person, Yes oriented to place and Yes oriented to time Skin: COMMON NORMALS: no rashes or lesions noted GENERAL SKIN EXAM: no rashes or lesions noted Course Vital Signs: Vital signs: Vital Signs Pulse Rate 102 H 08/12/21 08:57 Respiratory Rate 16 08/12/21 08:57 Blood Pressure 162/89 08/12/21 08:57 Pulse Oximetry 99 08/12/21 08:57 MDM - Female Medical Decision Making hCG on 7/5 was 2996. Today on 08/12 it is 3786. Her ultrasound does show an intrauterine gestational sac as well as a yolk sac. There was no pole present however this could be a normal finding given the estimated gestational age was 5w5d. She does have a likely right ovarian hemorrhagic cyst. Rad iologist stated ectopic could not entirely be excluded but was less likely giving intrauterine findings. She is having some minor pelvic cramping but no adnexal pain. Bleeding is scant at this time. Recommend repeat hCG in 48 hours. Patient states she is going out of town on vacation and is leaving today and will not be back until Thursday 08/17 I will write it for then. She needs to contact Dr. Ballesteros's office to schedule a follow-up visit and repeat ultrasound. Strict return to ED precautions given while she is on vacation if she begins developing severe bleeding or severe pelvic pain. Lab Data : 08/12/21 09:20 Radiology Impressions Transvaginal US 08/12/21 09:13 IMPRESSION: 1. Intrauterine Gestational sac with yolk sac. No pole in this very early . Recommend short interval follow-up. 2. Trace free fluid in the cul-de-sac. 3. Complex cystic lesion RIGHT ovary with internal echogenic debris likely represents hemorrhagic cyst. Ectopic not entirely excluded but less likely and recommend short interval follow-up and correlation with beta-hCG. 4. Estimated gestational age; 5w5d Laboratory Results WBC 8.0 10^3/uL (4.0-10.0) 08/12/21 09:20 RBC 4.89 10^6/uL (4.1-5.3) 08/12/21 09:20 Hgb 13.4 g/dL (11.5-15.3) 08/12/21 09:20 Hct 41.6 % (37.0-47.0) 08/12/21 09:20 MCV 85.1 fl (81-99) 08/12/21 09:20 MCH 27.4 pg (28.0-34.0) L 08/12/21 09:20 MCHC 32.2 g/dL (30.0-36.0) 08/12/21 09:20 RDW 13.0 % (12.1-15.1) 08/12/21 09:20 Plt Count 236 10^3/cmm (130-400) 08/12/21 09:20 MPV 9.4 fL (7.4-10.4) 08/12/21 09:20 Neut % (Auto) 69.0 % 08/12/21 09:20 Lymph % (Auto) 23.1 % 08/12/21 09:20 [place] % (Auto) 6.3 % 08/12/21 09:20 Eos % (Auto) 0.6 % 08/12/21 09:20 Baso % (Auto) 0.5 % 08/12/21 09:20 Neut # (Auto) 5.49 10^3/uL (1.8-7.7) 08/12/21 09:20 Lymph # (Auto) 1.8 10^3/uL (0.8-4.8) 08/12/21 09:20 [place] # (Auto) 0.5 10^3/uL (0.2-0.9) 08/12/21 09:20 Eos # (Auto) 0.1 10^3/uL (0.0-0.8) 08/12/21 09:20 Baso # (Auto) 0.0 10^3/uL (0.0-0.1) 08/12/21 09:20 Nucleated RBC % (auto) 0 % 08/12/21 09:20 Nucleated RBCs # 0.0 /100WBC 08/12/21 09:20 Ser , Semi-Qnt 3786.00 mIU/mL 08/12/21 09:20 Discharge Plan Discharge Patient Disposition: Home Clinical Impression: Threatened miscarriage in early Condition: Stable Prescriptions: No Action propranolol 20 mg tablet 20 mg PO TID PRN (Reason: Anxiety) 90 Days Qty: 270 1RF fluoxetine 40 mg capsule 40 mg PO QAM Qty: 90 0RF trazodone 50 mg tablet 50 mg PO BEDTIME PRN (Reason: Sleep) 90 Days Qty: 90 1RF amlodipine 5 mg tablet 5 mg PO DAILY Qty: 90 3RF Rx Instructions: 340 B if unaffordable hydrochlorothiazide 25 mg tablet 25 mg PO QAM Qty: 90 3RF Prena-Tab 65 mg iron- 1 mg Tablet 1 tab PO DAILY 0RF aripiprazole 10 mg Tablet 10 mg PO DAILY 30 Days Qty: 30 1RF Discharge Orders: Discharge ED (Routine); Ordered 08/12/21 Ordered By: Randi Ramirez Referrals: Sunitha Montez FNP-C [Primary Care Provider] - Activity Restrictions/Additional Instructions: As we discussed I have written you for an outpatient order to have your hCG repe ated when you return from vacation. I will have these results faxed to Dr. Ballesteros's office. You need to contact their office and schedule a follow-up visit. You need to seek medical evaluation for any severe pain, cramping, severe bleeding, or any other concerns you may have. Stand Alone Forms: Work/School Release Coding Level of Care Code ED Ivf Embryologist for [facility] Fwd Exam Detailed
--- NOTE | 2021-08-12 09:13 | US_ITS ---
WS: [id number] ULTRASOUND EARLY TECHNIQUE: Transabdominal and transvaginal sonography of the pelvis was performed. CLINICAL INFORMATION: early ; bleeding LMP: Beta hCG: Unknown. COMPARISON: None. FINDINGS: Cervix measures 4.1 cm UTERUS AND GESTATIONAL SAC Intrauterine gestations: Intrauterine gestational sac with yolk sac and thickened endometrium. Complex echogenic debris within the endometrium likely blood products. No pole visualized. Recommend interval follow-up. Estimated gestational age gestational sac: 5w5d Estimated delivery April 09, 2022 Yolk sac: 0.3 cm. OVARIES Right ovary: Complex cystic lesion RIGHT ovary with internal echogenic debris likely represents hemor rhagic cyst.Ectopic not entirely excluded. No blood flow. Left ovary: Normal. FREE FLUID Trace US/US OB transvaginal [id number] IMPRESSION: 1. Intrauterine Gestational sac with yolk sac. No pole in this very amrita y . Recommend short interval follow-up. 2. Trace free fluid in the cul-de-sac. 3. Complex cystic lesion RIGHT ovary with internal echogenic debris likely rep resents hemorrhagic cyst. Ectopic not entirely excluded but less like ly and recommend short interval follow-up and correlation with beta-hCG. 4. Estimated gestational age; 5w5d
[2021-08-12 09:28] LABS: Basophils % 0.5 %; Eosinophils # 0.1 10^3/uL (0.0-0.8); Eosinophils % 0.6 %; Hematocrit 41.6 % (37.0-47.0); Hemoglobin 13.4 g/dL (11.5-15.3); Lymphocytes # 1.8 10^3/uL (0.8-4.8); Lymphocytes % 23.1 %; Mean Corpuscular HGB Conc 32.2 g/dL (30.0-36.0); Mean Corpuscular Hemoglobin 27.4 pg (28.0-34.0); Mean Corpuscular Volume 85.1 fl (81-99); Mean Platelet Volume 9.4 fL (7.4-10.4); Monocytes # 0.5 10^3/uL (0.2-0.9); Monocytes % 6.3 %; Neutrophils # 5.49 10^3/uL (1.8-7.7); Nucleated Red Blood Cells % 0 %; Platelet Count 236 10^3/cmm (130-400); Red Blood Count 4.89 10^6/uL (4.1-5.3)
[2021-08-12 10:00] VITALS: BP 136/81; PULSE 97; O2SAT 98
[2021-08-12 11:00] VITALS: BP 143/68; PULSE 97; O2SAT 97
[2021-08-12 12:00] VITALS: BP 164/89; PULSE 92; O2SAT 99
[2021-08-12 12:09] VITALS: BP 164/89; PULSE 92; O2SAT 99
== END 2021-08-12 12:05 | disposition home or self-care (01) ==
PROVIDERS: Emergency Provider Physician Assistant; PCP Nurse Practitioner Family
DX: O20.0 Threatened abortion (principal); Z3A.00 Weeks of gestation of pregnancy not specified
CPT/HCPCS: 76817; 84702; 85025; 99284

== ENCOUNTER → 2021-08-17 08:35 | Outpatient (BNVA) | payer OTHER, SELFPAY | PROVIDERS: PCP Nurse Practitioner Family; Visit Provider Obstetrics & Gynecology | DX: O20.0 Threatened abortion (principal) | CPT/HCPCS: 84702 ==

== ENCOUNTER 2021-08-20 07:39 | Outpatient (CLI) | payer OTHER, SELFPAY | END 2021-08-20 07:40 | disposition home or self-care (01) | LOC: LAB 07:41 | PROVIDERS: PCP Nurse Practitioner Family; Visit Provider Obstetrics & Gynecology | DX: O20.0 Threatened abortion (principal); Z3A.00 Weeks of gestation of pregnancy not specified | CPT/HCPCS: 36415; 84702 ==

== ENCOUNTER 2021-08-20 11:48 | Emergency (ER) | payer OTHER, SELFPAY ==
[2021-08-20 12:10] VITALS: BP 147/98; PULSE 76; RESP 16; TEMP 36.9; O2SAT 99
--- NOTE | 2021-08-20 12:16 | W.ED.ABDPA2 ---
HPI - Abdominal Pain General: Chief Complaint: Abdominal Pain Stated Complaint: wants ultrasound Time Seen by Provider: 08/20/21 12:16 History of Present Illness: Ms. Hearn is a 26-year-old lady with history of renal cancer status post completion of treatment, hypertension, and current who presents to the emergency department for further evaluation rule out abnormality. She is unsure of last menstrual period however based on ultrasound on 08/12/2021 5 weeks 5 days. 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 And intermittent mild to moderate intensity abdominal cramping that does not specifically correlate with spotting. She has followed in outpatient setting with Dr. Ballesteros who she saw earlier. Beta-hCG is increasing at a slower rate than normal and there was question on previous ultrasound of complex cystic lesion in the right ovary. Therefore she was referred for further evaluation of possible heterotopic versus abnormal development of IUP. Denies other signs of systemic illness. Overall course of symptoms has persisted. Does have a history of SAB in April. No other specific changes in health, exacerbating, or alleviating factors identified. Onset (ago): week(s) Pain Consistency: intermittent Location: RLQ, LLQ and Suprapubic Severity: mild Quality: cramping Associated Symptoms: Reports other Related Data: Date of Last Menstrual Period: 05/30/21 Review of Systems General: Reports: 10 or more systems reviewed and unremarkable except in HPI and below GI: Reports: other PFS ED PFSH: Medical History Anxiety Depression FHx: kidney cancer Psychiatric care Renal cell carcinoma of right kidney Surgical History History of cholecystectomy History of kidney surgery History of tonsillectomy and adenoidectomy Hx of partial nephrectomy Family History Mother Hypertension Stroke Father Hypertension Grandmother Stroke maternal Breast cancer, Onset Age: 68 maternal Grandfather Heart disease maternal Colon cancer, Onset Age: 72 paternal Denies family history of Ovarian cancer Diabetes Clotting disorder Hyperlipidemia Anesthesia complication Bleeding disorder Uterine cancer Thyroid condition Female Reproductive History: Date of last menstrual period: 05/30/21 Spontaneous abortions: Yes Physical Exam Const: COMMON NORMALS: alert GENERAL APPEARANCE: cooperative and well developed HENMT: COMMON NORMALS: normocephalic and atraumatic HEAD & SCALP: normocephalic and atraumatic Eye: COMMON NORMALS: conjunctivae normal CONJUNCTIVA: Yes conjunctivae normal SCLERA: sclerae normal Neck/C-Spine: COMMON NORMALS: supple GENERAL: Yes trachea midline Resp: COMMON NORMALS: normal respiratory effort and clear to auscultation bilaterally EFFORT & INSPECTION: Yes able to speak in complete sentences AUSCULTATION: clear to auscultation bilaterally Cardio: COMMON NORMALS: regular rate and regular rhythm RATE: regular rate RHYTHM: regular rhythm GI: COMMON NORMALS: Soft to palpation PALPATION: Yes Soft to palpation and No Tenderness to palpation present (GI) PERCUSSION: normal to percussion Extremity: GENERAL: Yes normal exam except as noted and No edema Neuro: COMMON NORMALS: moves all extremities SENSORIUM/ORIENTATION: Yes alert and No Orientation impaired Psych: COMMON NORMALS: mental status grossly normal and Normal thought process present THOUGHT PROCESS: Normal thought process present Course Vital Signs: Vital signs: Vital Signs Temperature 98.5 F 08/20/21 12:10 Pulse Rate 76 08/20/21 12:10 Respiratory Rate 16 08/20/21 12:10 Blood Pressure 147/98 08/20/21 12:10 Pulse Oximetry 99 08/20/21 12:10 MDM - Abdominal Pain Medical Decision Making 26-year-old lady presenting with bleeding during early . Has history of abdominal ultrasound and referred to ED for ultrasound. No leukocytosis, hemoglobin normal. Mild evidence of dehydration. hCG continues to uptrend. Patient is O+ blood type. On ultrasound subchorionic hemorrhage noted. Cardiac activity for IUP is present. Complex cyst in the right adnexa does not appear to be ectopic . Results of ED evaluation were discussed with the patient including follow-up plan and return cautions. I discussed ultrasound results with the patient's primary design agent. Patient satisfactory for continued outpatient management. Medical Records I reviewed the patient's medical records. Lab Data I reviewed the patient's lab results. : 08/20/21 12:45 08/20/21 12:45 Labs/Radiology: Radiology Impressions Transvaginal US 08/20/21 12:24 IMPRESSION: 1. Single intrauterine gestation of 6 weeks 4 days with an EDC of 04/11/2022. 2. Cardiac activity is identified. 3. Moderate-sized subchorionic hemorrhage. 4. Gestational sac is positioned low within the endometrium which places the patient at increased risk for spontaneous . 5. Complex cyst in the RIGHT adnexa. Laboratory Results WBC 9.2 10^3/uL (4.0-10.0) 08/20/21 12:45 RBC 5.26 10^6/uL (4.1-5.3) 08/20/21 12:45 Hgb 14.3 g/dL (11.5-15.3) 08/20/21 12:45 Hct 43.3 % (37.0-47.0) 08/20/21 12:45 MCV 82.3 fl (81-99) 08/20/21 12:45 MCH 27.2 pg (28.0-34.0) L 08/20/21 12:45 MCHC 33.0 g/dL (30.0-36.0) 08/20/21 12:45 RDW 13.0 % (12.1-15.1) 08/20/21 12:45 Plt Count 258 10^3/cmm (130-400) 08/20/21 12:45 MPV 10.0 fL (7.4-10.4) 08/20/21 12:45 Neut % (Auto) 64.5 % 08/20/21 12:45 Lymph % (Auto) 26.1 % 08/20/21 12:45 Hood % (Auto) 7.8 % 08/20/21 12:45 Eos % (Auto) 0.8 % 08/20/21 12:45 Baso % (Auto) 0.3 % 08/20/21 12:45 Neut # (Auto) 5.91 10^3/uL (1.8-7.7) 08/20/21 12:45 Lymph # (Auto) 2.4 10^3/uL (0.8-4.8) 08/20/21 12:45 Hood # (Auto) 0.7 10^3/uL (0.2-0.9) 08/20/21 12:45 Eos # (Auto) 0.1 10^3/uL (0.0-0.8) 08/20/21 12:45 Baso # (Auto) 0.0 10^3/uL (0.0-0.1) 08/20/21 12:45 Nucleated RBC % (auto) 0 % 08/20/21 12:45 Nucleated RBCs # 0.0 /100WBC 08/20/21 12:45 Sodium 133 mmol/L (136-145) L 08/20/21 12:45 Potassium 4.1 mmol/L (3.5-5.1) 08/20/21 12:45 Chloride 98 mmol/L (98-107) 08/20/21 12:45 Carbon Dioxide 25 mmol/L (22-29) 08/20/21 12:45 Anion Gap 14.1 (5-19) 08/20/21 12:45 BUN 8 mg/dL (6-20) 08/20/21 12:45 Creatinine 0.6 mg/dL (0.5-0.9) 08/20/21 12:45 GFR Calculation 120.8 mL/min (90-130) 08/20/21 12:45 Glucose 81 mg/dL (65-115) 08/20/21 12:45 Calculated Osmolality 273 mOsm/kg (285-295) L 08/20/21 12:45 Calcium 9.7 mg/dL (8.5-10.5) 08/20/21 12:45 Total Bilirubin 0.2 mg/dL (0.15-1.2) 08/20/21 12:45 AST 12 U/L (0-32) 08/20/21 12:45 ALT 16 U/L (0-33) 08/20/21 12:45 Alkaline Phosphatase 89 IU/L (35-105) 08/20/21 12:45 Total Protein 7.9 g/dL (6.6-8.7) 08/20/21 12:45 Albumin 4.6 g/dL (3.5-5.2) 08/20/21 12:45 Globulin 3.3 g/dL (1.3-4.6) 08/20/21 12:45 Lipase 34 U/L (13-60) 08/20/21 12:45 Blood Type O Positive 08/20/21 12:45 Rho(D) Type Positive 08/20/21 12:45 Antibody Screen Negative 08/20/21 12:45 Discharge Plan Discharge Patient Disposition: Home Clinical Impression: Bleeding in early , Subchorionic hemorrhage, Complex cyst of uterine adnexa Condition: Stable Prescriptions: No Action propranolol 20 mg tablet 20 mg PO TID PRN (Reason: Anxiety) 90 Days Qty: 270 1RF fluoxetine 40 mg capsule 40 mg PO QAM Qty: 90 0RF trazodone 50 mg tablet 50 mg PO BEDTIME PRN (Reason: Sleep) 90 Days Qty: 90 1RF hydrochlorothiazide 25 mg tablet 25 mg PO QAM Qty: 90 3RF Prena-Tab 65 mg iron- 1 mg Tablet 1 tab PO DAILY 0RF buspirone 10 mg tablet 15 mg PO TID PRN (Reason: Anxiety) 0RF amlodipine 5 mg tablet 5 mg PO QAM 0RF Rx Instructions: 340 B if unaffordable Discharge Orders: Discharge ED (Routine); Ordered 08/20/21 Ordered By: Jero Voss Referrals: Sunitha Montez FNP-C [Primary Care Provider] - Discharge Diet: Usual diet Discharge Activity: Limit activity as instructed Patient Instructions: Threatened Miscarriage (ED), Subchorionic Hemorrhage (ED), Pelvic Rest (ED) Activity Restrictions/Additional Instructions: Thank you for visiting the emergency department. You were seen and evaluated for bleeding in early . As discussed the exact cause of the symptoms is unclear. You were noted to have a subchorionic hemorrhage which is a common cause of bleeding in early . The complex cyst does not appear to be an ectopic . Please continue follow-up and follow all directions given by your design agent. Please return to the emergency department for worsening symptoms, severe abdominal pain, lightheadedness, dizziness, bleeding more than 2 pads per hour for 2 hours or more, or anything else that you are concerned about a feel needs emergency department evaluation. Coding Level of Care Code ED [employer] for [employer]aniya Fwd Exam Comprehensive
--- NOTE | 2021-08-20 12:24 | US_ITS ---
WS: [id number] EARLY OBSTETRICAL ULTRASOUND (<14 WEEKS). HISTORY: r/o heterotopic/SAB, abnormally increasing beta hcg COMPARISON: 04/09/2021 Single intrauterine gestational sac is identified. Gestational sac is low lying along the endometrium which is an abnormal position. Cardiac activity at 111 BPM. [place]-rump length measures 0.7 cm which corresponds to a gestation of 6w4d. The yolk sac has a slightly abnormal configuration although the s ize is normal at 4 mm. Moderate-sized subchorionic hemorrhage. Subchorionic hemorrhage measures 8 x 1 2 x 19 mm. RIGHT ovary contains a complex cyst with a septation and no significant increased vascularity. This c ystic mass measures 2.3 x 2.8 x 2.1 cm. LEFT ovary is negative. No significant free fluid in the cul- de-sac. US/US OB transvaginal [id number] IMPRESSION: 1. Single intrauterine gestation of 6 weeks 4 days with an EDC of 04/11/2022. 2. Cardiac activity is identified. 3. Moderate-sized subchorionic hemorrhage. 4. Gestational sac is positioned low within the endometrium which places the p atient at increased risk for spontaneous . 5. Complex cyst in the RIGHT adnexa.
[2021-08-20 13:12] LABS: Basophils % 0.3 %; Eosinophils # 0.1 10^3/uL (0.0-0.8); Eosinophils % 0.8 %; Hematocrit 43.3 % (37.0-47.0); Hemoglobin 14.3 g/dL (11.5-15.3); Lymphocytes # 2.4 10^3/uL (0.8-4.8); Lymphocytes % 26.1 %; Mean Corpuscular Hemoglobin 27.2 pg (28.0-34.0); Mean Corpuscular Volume 82.3 fl (81-99); Monocytes # 0.7 10^3/uL (0.2-0.9); Monocytes % 7.8 %; Neutrophils # 5.91 10^3/uL (1.8-7.7); Neutrophils % 64.5 %; Nucleated Red Blood Cells % 0 %; Platelet Count 258 10^3/cmm (130-400); Red Blood Count 5.26 10^6/uL (4.1-5.3); White Blood Count 9.2 10^3/uL (4.0-10.0)
[2021-08-20 13:23] LABS: Alanine Aminotransferase 16 U/L (0-33); Albumin Level 4.6 g/dL (3.5-5.2); Alkaline Phosphatase 89 IU/L (35-105); Anion Gap 14.1 (5-19); Aspartate Amino Transferase 12 U/L (0-32); Blood Urea Nitrogen 8 mg/dL (6-20); Calcium 9.7 mg/dL (8.5-10.5); Carbon Dioxide 25 mmol/L (22-29); Chloride 98 mmol/L (98-107); Creatinine Clr Calc Pharmacy 188.8025; Globulin 3.3 g/dL (1.3-4.6); Glomerular Filtration Rate 120.8 mL/min (90-130); Glucose 81 mg/dL (65-115); Lipase 34 U/L (13-60); Osmolality Calculated 273 mOsm/kg (285-295); Potassium 4.1 mmol/L (3.5-5.1); Sodium 133 mmol/L (136-145); Total Bilirubin 0.2 mg/dL (0.15-1.2); Total Protein 7.9 g/dL (6.6-8.7)
--- NOTE | 2021-08-20 13:42 | PC.PHAR ---
pt states not taking ozempic for 3 weeks
== END 2021-08-20 14:46 | disposition home or self-care (01) ==
PROVIDERS: Emergency Provider Emergency Medicine; PCP Nurse Practitioner Family
DX: O20.9 Hemorrhage in early pregnancy, unspecified (principal); O99.891 Other specified diseases and conditions complicating pregnancy; N85.8 Other specified noninflammatory disorders of uterus; Z3A.01 Less than 8 weeks gestation of pregnancy; Z85.528 Personal history of other malignant neoplasm of kidney
CPT/HCPCS: 76817; 80053; 83690; 85025; 86850; 86900; 99284

== ENCOUNTER 2021-08-24 08:36 | Outpatient (CLI) | payer OTHER, SELFPAY ==
--- NOTE | 2021-08-24 08:45 | US_ITS ---
WS: [id number] EARLY OBSTETRICAL ULTRASOUND (<14 WEEKS). HISTORY: Follow-up. COMPARISON: 08/20/2021 Single intrauterine gestational sac is identified. The gestational sac continues to be low along the endometrium as seen on the prior study. Uterus is retroverted on transvaginal imaging. Cardiac activi ty at 136 BPM. [place]-rump length measures 0.9 cm which corresponds to a gestation of 6w6d. The yolk s ac is ovoid measuring approximately 5 mm on today's examination. Previously described subchorionic he morrhage is again identified measuring 1.4 x 2.5 x 0.8 cm. No significant increase in size. Corpus luteum cyst associated with the RIGHT ovary with internal hemorrhagic debris. Cyst measures 1. 7 x 1.5 x 1.8 cm. No free fluid in the cul-de-sac. US/US OB <=14 wk fetus w transvag IMPRESSION: 1. Single intrauterine gestation of 6 weeks 6 days with an EDC of 04/13/2022. Ap propriate growth since the prior ultrasound. 2. Gestational sac continues to be low lying within the endometrial canal and also the shape of the yolk sac is ovoid. Both of these findings are concerning for increased risk of spontaneous . 3. Normal cardiac activity. 4. Small subchorionic hemorrhage not significantly increased. 5. Complex mass associated with the RIGHT ovary is probably a corpus luteum cy st of .
== END 2021-08-24 08:37 | disposition home or self-care (01) ==
PROVIDERS: PCP Nurse Practitioner Family; Visit Provider Obstetrics & Gynecology
DX: O20.9 Hemorrhage in early pregnancy, unspecified (principal)
CPT/HCPCS: 76801; 76817; 80307; 85027; 86592; 86762; 86803; 86850; 86900; 87086; 87340; 87806

== ENCOUNTER 2021-08-24 17:38 | Emergency (ER) | payer OTHER, SELFPAY ==
[2021-08-24 18:11] VITALS: BP 141/90; PULSE 103; RESP 18; TEMP 36.8; O2SAT 98; BMI 36.1
[2021-08-24 18:58] LABS: Basophils % 0.3 %; Eosinophils # 0.1 10^3/uL (0.0-0.8); Eosinophils % 0.6 %; Hematocrit 38.2 % (37.0-47.0); Hemoglobin 13.1 g/dL (11.5-15.3); Lymphocytes # 3.5 10^3/uL (0.8-4.8); Lymphocytes % 27.1 %; Mean Corpuscular HGB Conc 34.3 g/dL (30.0-36.0); Mean Corpuscular Hemoglobin 27.5 pg (28.0-34.0); Mean Corpuscular Volume 80.3 fl (81-99); Mean Platelet Volume 9.8 fL (7.4-10.4); Monocytes # 0.8 10^3/uL (0.2-0.9); Monocytes % 6.2 %; Neutrophils # 8.44 10^3/uL (1.8-7.7); Neutrophils % 65.3 %; Nucleated Red Blood Cells % 0 %; Platelet Count 261 10^3/cmm (130-400); Red Blood Count 4.76 10^6/uL (4.1-5.3); White Blood Count 12.9 10^3/uL (4.0-10.0)
[2021-08-24 19:26] LABS: Alanine Aminotransferase 13 U/L (0-33); Albumin Level 4.2 g/dL (3.5-5.2); Alkaline Phosphatase 82 IU/L (35-105); Anion Gap 14.8 (5-19); Aspartate Amino Transferase 10 U/L (0-32); Blood Urea Nitrogen 11 mg/dL (6-20); Carbon Dioxide 23 mmol/L (22-29); Chloride 101 mmol/L (98-107); Globulin 2.6 g/dL (1.3-4.6); Glomerular Filtration Rate 149.1 mL/min (90-130); Glucose 91 mg/dL (65-115); Lipase 32 U/L (13-60); Osmolality Calculated 279 mOsm/kg (285-295); Potassium 3.8 mmol/L (3.5-5.1); Sodium 135 mmol/L (136-145); Total Bilirubin 0.2 mg/dL (0.15-1.2); Total Protein 6.8 g/dL (6.6-8.7)
[2021-08-24 19:53] LABS: Add Urine Microscopic? YES; Bilirubin Urine Neg (Negative); Blood Urine 3+ (Negative); Glucose Urine UA Norm (Normal); Ketones Urine Negative (Negative); Leukocyte Esterase Urine Negative (Negative); Nitrate Urine Negative (Negative); Protein Urine 2+ (Negative); Specific Gravity, Urine 1.025 (1.005-1.030); Urine Appearance Turbid (CLEAR); Urine Color Red (Yellow); Urobilinogen Urine Norm (Negative); pH Urine 5 (5-7)
[2021-08-24 19:54] LABS: Add Urine Culture? Yes; Bacteria Urine 1+ /hpf; RBC Urine TOO NUMEROUS TO CNT /hpf (0-2); Squamous Epithelial Cell Urine 0-4 /hpf (0-5); WBC Urine 0-4 /hpf (0-5)
== END 2021-08-24 22:33 | disposition left against medical advice (07) ==
PROVIDERS: Emergency Medicine; Emergency Provider Family Medicine; PCP Nurse Practitioner Family
DX: Z53.21 Procedure and treatment not carried out due to patient leaving prior to being seen by health care provider (principal)
CPT/HCPCS: 80053; 81001; 83690; 84702; 85025; 86900; 87086

== ENCOUNTER 2021-08-25 11:32 | Emergency (ER) | payer OTHER, SELFPAY ==
[2021-08-25 11:48] VITALS: BP 132/84; PULSE 93; RESP 16; TEMP 36.9; O2SAT 98; BMI 36.1
--- NOTE | 2021-08-25 13:57 | W.ED.PREGNAN ---
Documented by User: GIOVANNY Hinton 08/26/21 09:09 HPI - General: Chief complaint: Vaginal Bleeding Stated complaint: 7 weeks bleeding Time Seen by Provider: 08/25/21 13:57 History of Present Illness: Patient is a 26-year-old female that is 7 weeks and comes to the ED with vaginal bleeding. Patient has been seen by her OB yesterday and has had 2 ultrasounds done within the last week. Her latest scan on August 24 showed a intrauterine and cardiac activity seen. Small subchorionic hemorrhage noted. Last night and today she continued to have bleeding and passing some clots. She states last night her bleeding was a lot heavier and she was passing larger clots. Today she says the bleeding has slowed down. She also endorses having some cramping pain as well. She has had a miscarriage in the past that required D&C. She says the symptoms she is having now are just like her past miscarriage. She contacted her OB office this morning to let them know about current symptoms and they told her to come to the ED for another ultrasound. Date of Last Menstrual Period: 05/30/21 Associated symptoms: Deny abdominal pain, dysuria, headache(s), nausea or vomiting Review of Systems Const: Denies: fever(s), chills or fatigue Eyes: Denies: change in vision or eye discomfort ENMT: Denies: throat pain, odynophagia, nasal discharge or nasal congestion Card: Denies: chest pain, palpitations, edema, swelling of feet/ankles, dyspnea on exertion or orthopnea Resp: Denies: dyspnea, productive cough or non-productive cough GI: Denies: abdominal pain, nausea, vomiting, diarrhea, constipation or hematochezia : Reports: vaginal bleeding and pelvic pain; Denies: flank pain, dysuria or hematuria Musc: Denies: neck pain, back pain or extremity swelling Skin/Breast: Denies: rash or new lesions Neuro: Denies: headache(s), numbness in extremities or weakness in extremities [facility] ED PFSH: Medical History Anxiety Depression FHx: kidney cancer Psychiatric care Renal cell carcinoma of right kidney Surgical History History of cholecystectomy History of kidney surgery History of tonsillectomy and adenoidectomy Hx of partial nephrectomy Family History Mother Hypertension Stroke Father Hypertension Grandmother Stroke maternal Breast cancer, Onset Age: 68 maternal Grandfather Heart disease maternal Colon cancer, Onset Age: 72 paternal Denies family history of Ovarian cancer Diabetes Clotting disorder Hyperlipidemia Anesthesia complication Bleeding disorder Uterine cancer Thyroid condition Female Reproductive History: Date of last menstrual period: 05/30/21 Spontaneous abortions: Yes Physical Exam Const: COMMON NORMALS: no acute distress, patient oriented x3 and alert HENMT: COMMON NORMALS: normocephalic HEAD & SCALP: normocephalic MOUTH: Normal oral and palatal mucosa present THROAT: posterior oropharynx normal and uvula midline Neck/C-Spine: COMMON NORMALS: supple GENERAL: Yes normal visual inspection Resp: COMMON NORMALS: normal respiratory effort, No retractions, No use of accessory muscles and clear to auscultation bilaterally AUSCULTATION: clear to auscultation bilaterally Cardio: COMMON NORMALS: regular rate, regular rhythm, S1 normal heart sound present, S2 normal heart sound present, No gallops present (Cardio), No clicks present (Cardio), No murmurs present (Cardio) and Peripheral pulses 2+ throughout RATE: regular rate RHYTHM: regular rhythm HEART SOUNDS: S1 normal heart sound present and S2 normal heart sound present PERIPHERAL PULSES: Peripheral pulses 2+ throughout GI: COMMON NORMALS: Normal to inspection, nondistended, normoactive bowel sounds present, Soft to palpation, non-tender and no masses PALPATION: Yes Soft to palpation : COMMON NORMALS: Yes no CVA tenderness BLADDER/KIDNEY EXAM: Yes no CVA tenderness Back/Pelvis: COMMON NORMALS: no CVA tenderness Extremity: COMMON NORMALS: normal to inspection Neuro: COMMON NORMALS: patient oriented x3 and moves all extremities SENSORIUM/ORIENTATION: Yes alert Skin: GENERAL SKIN EXAM: dry skin Course Consultations: Consultation #1: I contacted Dr. Buckner and told her about patient case and her spontaneous miscarriage. She agreed that patient can be discharged home and will follow up in the clinic tomorrow with either Dr. Ballesteros or Dr. Buckner. Time: 16:20 Vital Signs: Vital signs: Vital Signs Temperature 98.4 F 08/25/21 11:48 Pulse Rate 79 08/25/21 14:05 Respiratory Rate 16 08/25/21 14:05 Blood Pressure 142/83 08/25/21 14:05 Pulse Oximetry 99 08/25/21 14:05 MDM - OB/Uterine Contractions Medical Decision Making Patient is a 26-year-old female that is 7 weeks and comes to the ED with vaginal bleeding. Patient has been seen by her OB yesterday and has had 2 ultrasounds done within the last week. Her latest scan on August 24 showed a intrauterine and cardiac activity seen. Small subchorionic hemorrhage noted. Last night and today she continued to have bleeding and passing some clots. She states last night her bleeding was a lot heavier and she was passing larger clots. Today she says the bleeding has slowed down. Vitals are stable. Exam of patient is benign. CBC and CMP were unremarkable. hCG quant is 4588 which is down from 12,550 on August 24. OB ultrasound performed and it showed no intrauterine visualized. No cardiac activity. Findings compatible with spontaneous miscarriage. Cervix is closed. I contacted Dr. Buckner and told her about patient case and she says patient is good to discharge home and can follow-up in the clinic tomorrow and either Dr. Ballesteros or Dr. Buckner will see her. Lab Data I reviewed the patient's lab results. : 08/25/21 14:23 08/25/21 14:23 Radiology Impressions Transvaginal US 08/25/21 13:59 IMPRESSION: 1. Hemorrhagic blood products and hematoma within the distended endometrial canal. No intrauterine visualized. No cardiac activity. Findings compatible with spontaneous miscarriage. 2. Normal adnexa. 3. Cervix is long and closed. Laboratory Results WBC 9.3 10^3/uL (4.0-10.0) 08/25/21 14:23 RBC 4.56 10^6/uL (4.1-5.3) 08/25/21 14:23 Hgb 12.8 g/dL (11.5-15.3) 08/25/21 14:23 Hct 37.1 % (37.0-47.0) 08/25/21 14:23 MCV 81.4 fl (81-99) 08/25/21 14:23 MCH 28.1 pg (28.0-34.0) 08/25/21 14:23 MCHC 34.5 g/dL (30.0-36.0) 08/25/21 14:23 RDW 13.2 % (12.1-15.1) 08/25/21 14:23 Plt Count 248 10^3/cmm (130-400) 08/25/21 14:23 MPV 10.0 fL (7.4-10.4) 08/25/21 14:23 Neut % (Auto) 61.6 % 08/25/21 14:23 Lymph % (Auto) 28.9 % 08/25/21 14:23 [place] % (Auto) 7.0 % 08/25/21 14:23 Eos % (Auto) 1.1 % 08/25/21 14:23 Baso % (Auto) 0.4 % 08/25/21 14: Neut # (Auto) 5.75 10^3/uL (1.8-7.7) 08/25/21 14:23 Lymph # (Auto) 2.7 10^3/uL (0.8-4.8) 08/25/21 14:23 [place] # (Auto) 0.7 10^3/uL (0.2-0.9) 08/25/21 14:23 Eos # (Auto) 0.1 10^3/uL (0.0-0.8) 08/25/21 14:23 Baso # (Auto) 0.0 10^3/uL (0.0-0.1) 08/25/21 14:23 Nucleated RBC % (auto) 0 % 08/25/21 14: Nucleated RBCs # 0.0 /100WBC 08/25/21 14:23 Sodium 137 mmol/L (136-145) 08/25/21 14:23 Potassium 4.1 mmol/L (3.5-5.1) 08/25/21 14:23 Chloride 102 mmol/L (98-107) 08/25/21 14:23 Carbon Dioxide 23 mmol/L (22-29) 08/25/21 14:23 Anion Gap 16.1 (5-19) 08/25/21 14:23 BUN 8 mg/dL (6-20) 08/25/21 14:23 Creatinine 0.6 mg/dL (0.5-0.9) 08/25/21 14:23 GFR Calculation 120.8 mL/min (90-130) 08/25/21 14:23 Glucose 76 mg/dL (65-115) 08/25/21 14:23 Calculated Osmolality 281 mOsm/kg (285-295) L 08/25/21 14:23 Calcium 8.9 mg/dL (8.5-10.5) 08/25/21 14:23 Total Bilirubin 0.2 mg/dL (0.15-1.2) 08/25/21 14:23 AST 12 U/L (0-32) 08/25/21 14:23 ALT 14 U/L (0-33) 08/25/21 14:23 Alkaline Phosphatase 77 IU/L (35-105) 08/25/21 14:23 Total Protein 6.4 g/dL (6.6-8.7) L 08/25/21 14:23 Albumin 4.3 g/dL (3.5-5.2) 08/25/21 14:23 Globulin 2.1 g/dL (1.3-4.6) 08/25/21 14:23 Lipase 26 U/L (13-60) 08/25/21 14:23 Ser , Semi-Qnt 4588.00 mIU/mL 08/25/21 14:23 Discharge Plan Discharge Patient Disposition: Home Clinical Impression: Spontaneous miscarriage Condition: Stable Prescriptions: No Action propranolol 20 mg tablet 20 mg PO TID PRN (Reason: Anxiety) 90 Days Qty: 270 1RF fluoxetine 40 mg capsule 40 mg PO QAM Qty: 90 0RF trazodone 50 mg tablet 50 mg PO BEDTIME PRN (Reason: Sleep) 90 Days Qty: 90 1RF hydrochlorothiazide 25 mg tablet 25 mg PO QAM Qty: 90 3RF Prena-Tab 65 mg iron- 1 mg Tablet 1 tab PO DAILY 0RF buspirone 10 mg tablet 15 mg PO TID PRN (Reason: Anxiety) 0RF amlodipine 5 mg tablet 5 mg PO QAM 0RF Rx Instructions: 340 B if unaffordable Discharge Orders: Discharge ED (Routine); Ordered 08/25/21 Ordered By: Mathew Gaston Referrals: Sunitha Montez FNP-C [Primary Care Provider] - Discharge Diet: Regular Discharge Activity: Increase activity as tolerated Patient Instructions: Miscarriage (ED) Activity Restrictions/Additional Instructions: Follow-up with OB doctor tomorrow for reevaluation. Return to the ER or your medical provider if condition worsens. Please read and understand discharge instructions. Thank you for choosing [facility] for your healthcare needs today. Please realize this is an emergency room and that we are providing you with a medical screening exam and this may not be complete and all inclusive of all the testing and or work up that you may need to determine your ailment or severity of your illness. It is very important that you follow up as instructed or that you return to the Emergency Department should you have concerns or if your condition changes or worsens in any way. Coding Level of Care Code ED Gun Stocker for Chg Fwd Exam Comprehensive Documented by User: Grabiel Reich DO 08/26/21 14:26 HPI - General: Chief complaint: Vaginal Bleeding Stated complaint: 7 weeks bleeding Time Seen by Provider: 08/25/21 13:57 PFSH ED PFSH: Medical History Anxiety Depression FHx: kidney cancer Psychiatric care Renal cell carcinoma of right kidney Surgical History History of cholecystectomy History of kidney surgery History of tonsillectomy and adenoidectomy Hx of partial nephrectomy Family History Mother Hypertension Stroke Father Hypertension Grandmother Stroke maternal Breast cancer, Onset Age: 68 maternal Grandfather Heart disease maternal Colon cancer, Onset Age: 72 paternal Denies family history of Ovarian cancer Diabetes Clotting disorder Hyperlipidemia Anesthesia complication Bleeding disorder Uterine cancer Thyroid condition Course Vital Signs: Vital signs: Vital Signs Temperature 98.4 F 08/25/21 11:48 Pulse Rate 79 08/25/21 14:05 Respiratory Rate 16 08/25/21 14:05 Blood Pressure 142/83 08/25/21 14:05 Pulse Oximetry 99 08/25/21 14:05 MDM - OB/Uterine Contractions Medical Decision Making Patient is a 26-year-old female that is 7 weeks and comes to the ED with vaginal bleeding. Patient has been seen by her OB yesterday and has had 2 ultrasounds done within the last week. Her latest scan on August 24 showed a intrauterine and cardiac activity seen. Small subchorionic hemorrhage noted. Last night and today she continued to have bleeding and passing some clots. She states last night her bleeding was a lot heavier and she was passing larger clots. Today she says the bleeding has slowed down. Vitals are stable. Exam of patient is benign. CBC and CMP were unremarkable. hCG quant is 4588 which is down from 12,550 on August 24. OB ultrasound performed and it showed no intrauterine visualized. No cardiac activity. Findings compatible with spontaneous miscarriage. Cervix is closed. I contacted Dr. Buckner and told her about patient case and she says patient is good to discharge home and can follow-up in the clinic tomorrow and either Dr. Ballesteros or Dr. Buckner will see her. Chart reviewed and patient discussed with midlevel. Agree with assessment and plan. Lab Data : 08/25/21 14:23 08/25/21 14:23 Radiology Impressions Transvaginal US 08/25/21 13:59 IMPRESSION: 1. Hemorrhagic blood products and hematoma within the distended endometrial canal. No intrauterine visualized. No cardiac activity. Findings compatible with spontaneous miscarriage. 2. Normal adnexa. 3. Cervix is long and closed. Laboratory Results WBC 9.3 10^3/uL (4.0-10.0) 08/25/21 14: RBC 4.56 10^6/uL (4.1-5.3) 08/25/21 14:23 Hgb 12.8 g/dL (11.5-15.3) 08/25/21 14: Hct 37.1 % (37.0-47.0) 08/25/21 14: MCV 81.4 fl (81-99) 08/25/21 14:23 MCH 28.1 pg (28.0-34.0) 08/25/21 14: MCHC 34.5 g/dL (30.0-36.0) 08/25/21 14: RDW 13.2 % (12.1-15.1) 08/25/21 14:23 Plt Count 248 10^3/cmm (130-400) 08/25/21 14:23 MPV 10.0 fL (7.4-10.4) 08/25/21 14:23 Neut % (Auto) 61.6 % 08/25/21 14:23 Lymph % (Auto) 28.9 % 08/25/21 14:23 [place] % (Auto) 7.0 % 08/25/21 14:23 Eos % (Auto) 1.1 % 08/25/21 14:23 Baso % (Auto) 0.4 % 08/25/21 14:23 Neut # (Auto) 5.75 10^3/uL (1.8-7.7) 08/25/21 14:23 Lymph # (Auto) 2.7 10^3/uL (0.8-4.8) 08/25/21 14:23 [place] # (Auto) 0.7 10^3/uL (0.2-0.9) 08/25/21 14:23 Eos # (Auto) 0.1 10^3/uL (0.0-0.8) 08/25/21 14:23 Baso # (Auto) 0.0 10^3/uL (0.0-0.1) 08/25/21 14:23 Nucleated RBC % (auto) 0 % 08/25/21 14: Nucleated RBCs # 0.0 /100WBC 08/25/21 14:23 Sodium 137 mmol/L (136-145) 08/25/21 14:23 Potassium 4.1 mmol/L (3.5-5.1) 08/25/21 14:23 Chloride 102 mmol/L (98-107) 08/25/21 14:23 Carbon Dioxide 23 mmol/L (22-29) 08/25/21 14:23 Anion Gap 16.1 (5-19) 08/25/21 14:23 BUN 8 mg/dL (6-20) 08/25/21 14:23 Creatinine 0.6 mg/dL (0.5-0.9) 08/25/21 14:23 GFR Calculation 120.8 mL/min (90-130) 08/25/21 14:23 Glucose 76 mg/dL (65-115) 08/25/21 14:23 Calculated Osmolality 281 mOsm/kg (285-295) L 08/25/21 14:23 Calcium 8.9 mg/dL (8.5-10.5) 08/25/21 14:23 Total Bilirubin 0.2 mg/dL (0.15-1.2) 08/25/21 14:23 AST 12 U/L (0-32) 08/25/21 14:23 ALT 14 U/L (0-33) 08/25/21 14:23 Alkaline Phosphatase 77 IU/L (35-105) 08/25/21 14:23 Total Protein 6.4 g/dL (6.6-8.7) L 08/25/21 14:23 Albumin 4.3 g/dL (3.5-5.2) 08/25/21 14: Globulin 2.1 g/dL (1.3-4.6) 08/25/21 14:23 Lipase 26 U/L (13-60) 08/25/21 14:23 Ser , Semi-Qnt 4588.00 mIU/mL 08/25/21 14:23 Discharge Plan Discharge Patient Disposition: Home Clinical Impression: Spontaneous miscarriage Condition: Stable Prescriptions: No Action propranolol 20 mg tablet 20 mg PO TID PRN (Reason: Anxiety) 90 Days Qty: 270 1RF fluoxetine 40 mg capsule 40 mg PO QAM Qty: 90 0RF trazodone 50 mg tablet 50 mg PO BEDTIME PRN (Reason: Sleep) 90 Days Qty: 90 1RF hydrochlorothiazide 25 mg tablet 25 mg PO QAM Qty: 90 3RF Prena-Tab 65 mg iron- 1 mg Tablet 1 tab PO DAILY 0RF buspirone 10 mg tablet 15 mg PO TID PRN (Reason: Anxiety) 0RF amlodipine 5 mg tablet 5 mg PO QAM 0RF Rx Instructions: 340 B if unaffordable Discharge Orders: Discharge ED (Routine); Ordered 08/25/21 Ordered By: Mathew Gaston Referrals: Sunitha Montez FNP-C [Primary Care Provider] - Discharge Diet: Regular Discharge Activity: Increase activity as tolerated Patient Instructions: Miscarriage (ED) Activity Restrictions/Additional Instructions: Follow-up with OB doctor tomorrow for reevaluation. Return to the ER or your medical provider if condition worsens. Please read and understand discharge instructions. Thank you for choosing [facility] for your healthcare needs today. Please realize this is an emergency room and that we are providing you with a medical screening exam and this may not be complete and all inclusive of all the testing and or work up that you may need to determine your ailment or severity of your illness. It is very important that you follow up as instructed or that you return to the Emergency Department should you have concerns or if your condition changes or worsens in any way. Coding Level of Care Code ED Gun Stocker for Taniya Fwamber Exam Comprehensive
--- NOTE | 2021-08-25 13:59 | US_ITS ---
WS: [id number] ULTRASOUND EARLY TECHNIQUE: Transabdominal sonography of the pelvis was performed. Followed by transvaginal sonography to better evaluate the uterus and ovaries. CLINICAL INFORMATION: approx 7 weeks preg, vaginal bleeding and cramping LMP: 07/05/2021 Beta hCG: Unknown. COMPARISON: 08/24/2021 and 08/20/2021 FINDINGS: Cervix is long and closed. UTERUS AND GESTATIONAL SAC Hemorrhagic blood products and hematoma within the endometrial canal is new compared to previous. Ges tational sac and pole are no longer visualized. No intrauterine visualized. No cardia c activity detected. Findings compatible with spontaneous miscarriage OVARIES Right ovary: Normal. Left ovary: Normal. FREE FLUID None. US/US OB transvaginal [id number] IMPRESSION: 1. Hemorrhagic blood products and hematoma within the distended endometrial ca nal. No intrauterine visualized. No cardiac activity. Findings compat ible with spontaneous miscarriage. 2. Normal adnexa. 3. Cervix is long and closed.
[2021-08-25 14:05] VITALS: BP 142/83; PULSE 79; RESP 16; O2SAT 99
[2021-08-25 14:48] LABS: Basophils % 0.4 %; Eosinophils # 0.1 10^3/uL (0.0-0.8); Eosinophils % 1.1 %; Hematocrit 37.1 % (37.0-47.0); Hemoglobin 12.8 g/dL (11.5-15.3); Lymphocytes # 2.7 10^3/uL (0.8-4.8); Lymphocytes % 28.9 %; Mean Corpuscular HGB Conc 34.5 g/dL (30.0-36.0); Mean Corpuscular Hemoglobin 28.1 pg (28.0-34.0); Mean Corpuscular Volume 81.4 fl (81-99); Monocytes # 0.7 10^3/uL (0.2-0.9); Neutrophils # 5.75 10^3/uL (1.8-7.7); Neutrophils % 61.6 %; Nucleated Red Blood Cells % 0 %; Platelet Count 248 10^3/cmm (130-400); Red Blood Count 4.56 10^6/uL (4.1-5.3); Red Cell Distribution Width 13.2 % (12.1-15.1); White Blood Count 9.3 10^3/uL (4.0-10.0)
[2021-08-25 15:20] LABS: Alanine Aminotransferase 14 U/L (0-33); Albumin Level 4.3 g/dL (3.5-5.2); Alkaline Phosphatase 77 IU/L (35-105); Anion Gap 16.1 (5-19); Aspartate Amino Transferase 12 U/L (0-32); Blood Urea Nitrogen 8 mg/dL (6-20); Calcium 8.9 mg/dL (8.5-10.5); Carbon Dioxide 23 mmol/L (22-29); Chloride 102 mmol/L (98-107); Creatinine Clr Calc Pharmacy 188.8025; Globulin 2.1 g/dL (1.3-4.6); Glomerular Filtration Rate 120.8 mL/min (90-130); Glucose 76 mg/dL (65-115); Lipase 26 U/L (13-60); Osmolality Calculated 281 mOsm/kg (285-295); Potassium 4.1 mmol/L (3.5-5.1); Sodium 137 mmol/L (136-145); Total Bilirubin 0.2 mg/dL (0.15-1.2); Total Protein 6.4 g/dL (6.6-8.7)
== END 2021-08-25 16:38 | disposition home or self-care (01) ==
PROVIDERS: Emergency Medicine; Emergency Provider Physician Assistant; PCP Nurse Practitioner Family
DX: O03.9 Complete or unspecified spontaneous abortion without complication (principal)
CPT/HCPCS: 76817; 80053; 83690; 84702; 85025; 99284

== ENCOUNTER → 2021-08-31 14:07 | Outpatient (BNVA) | payer OTHER, SELFPAY | PROVIDERS: PCP Nurse Practitioner Family; Visit Provider Nurse Practitioner Women's Health | DX: O03.4 Incomplete spontaneous abortion without complication (principal) | CPT/HCPCS: 84443; 84702 ==

== ENCOUNTER → 2021-09-10 08:14 | Outpatient (BNVA) | payer OTHER, SELFPAY | PROVIDERS: PCP Nurse Practitioner Family; Visit Provider Obstetrics & Gynecology | DX: O03.4 Incomplete spontaneous abortion without complication (principal) | CPT/HCPCS: 84702 ==

== ENCOUNTER → 2021-09-21 08:05 | Outpatient (BNVA) | payer OTHER, SELFPAY | PROVIDERS: PCP Nurse Practitioner Family; Visit Provider Obstetrics & Gynecology | DX: O03.4 Incomplete spontaneous abortion without complication (principal) | CPT/HCPCS: 84702 ==

== ENCOUNTER 2021-09-28 09:04 | Outpatient (CLI) | payer OTHER, SELFPAY ==
[2021-09-28 10:07] LABS: HCG Quantitative 1.37 mIU/mL
== END 2021-09-28 09:05 | disposition home or self-care (01) ==
PROVIDERS: PCP Nurse Practitioner Family; Visit Provider Obstetrics & Gynecology
DX: O03.4 Incomplete spontaneous abortion without complication (principal)
CPT/HCPCS: 36415; 84702

== ENCOUNTER → 2021-11-30 09:00 | Outpatient (BNVA) | payer OTHER, SELFPAY | PROVIDERS: PCP Nurse Practitioner Family; Visit Provider Obstetrics & Gynecology | DX: N96 Recurrent pregnancy loss (principal) | CPT/HCPCS: 85613; 85730; 86146; 86147 ==

== ENCOUNTER → 2022-01-27 10:35 | Outpatient (BNVA) | payer OTHER, SELFPAY | PROVIDERS: PCP Family Medicine; Visit Provider Registered Nurse Neonatal Intensive Care | DX: R50.9 Fever, unspecified (principal) | CPT/HCPCS: 87400; 87426 ==

== ENCOUNTER → 2022-02-28 10:29 | Outpatient (BNVA) | payer OTHER, SELFPAY | PROVIDERS: PCP Family Medicine; Visit Provider Obstetrics & Gynecology | DX: N96 Recurrent pregnancy loss (principal) | CPT/HCPCS: 81025 ==

== ENCOUNTER → 2022-03-01 17:11 | Outpatient (BNVA) | payer OTHER, SELFPAY | PROVIDERS: PCP Family Medicine; Visit Provider Obstetrics & Gynecology | DX: N96 Recurrent pregnancy loss (principal); Z32.00 Encounter for pregnancy test, result unknown | CPT/HCPCS: 84702 ==

== ENCOUNTER 2022-03-04 07:18 | Outpatient (CLI) | payer OTHER, SELFPAY ==
[2022-03-04 07:59] LABS: Add Urine Microscopic? NO; Charge for UA Resulting for Rev
[2022-03-04 08:04] LABS: HCG Qualitative Urine. Positive (Negative)
[2022-03-04 08:05] LABS: Urine Appearance Clear (CLEAR); Urine Color Yellow (Yellow); pH Urine 6 (5-7)
[2022-03-04 08:06] LABS: Bilirubin Urine Neg (Negative); Blood Urine Neg (Negative); Glucose Urine UA Norm (Normal); Ketones Urine Negative (Negative); Leukocyte Esterase Urine Negative (Negative); Nitrate Urine Negative (Negative); Protein Urine Neg (Negative); Urobilinogen Urine Neg (Negative)
== END 2022-03-04 07:19 | disposition home or self-care (01) ==
PROVIDERS: PCP Family Medicine; Visit Provider Nurse Practitioner Women's Health
DX: N96 Recurrent pregnancy loss (principal)
CPT/HCPCS: 36415; 81003; 81025; 84702

== ENCOUNTER 2022-03-09 08:22 | Outpatient (CLI) | payer OTHER, SELFPAY | END 2022-03-09 08:23 | disposition home or self-care (01) | PROVIDERS: PCP Family Medicine; Visit Provider Nurse Practitioner Women's Health | DX: N96 Recurrent pregnancy loss (principal) | CPT/HCPCS: 36415; 84702 ==

== ENCOUNTER 2022-03-14 10:22 | Outpatient (CLI) | payer OTHER, SELFPAY ==
[2022-03-14 10:52] LABS: Basophils % 0.4 %; Eosinophils # 0.1 10^3/uL (0.0-0.8); Eosinophils % 0.5 %; Hematocrit 41.7 % (37.0-47.0); Hemoglobin 13.2 g/dL (11.5-15.3); Lymphocytes # 2.2 10^3/uL (0.8-4.8); Lymphocytes % 23.7 %; Mean Corpuscular HGB Conc 31.7 g/dL (30.0-36.0); Mean Corpuscular Hemoglobin 26.5 pg (28.0-34.0); Mean Corpuscular Volume 83.7 fl (81-99); Mean Platelet Volume 9.7 fL (7.4-10.4); Monocytes # 0.7 10^3/uL (0.2-0.9); Monocytes % 7.5 %; Neutrophils % 67.2 %; Nucleated Red Blood Cells % 0 %; Platelet Count 278 10^3/cmm (130-400); Red Blood Count 4.98 10^6/uL (4.1-5.3); White Blood Count 9.4 10^3/uL (4.0-10.0)
== END 2022-03-14 10:23 | disposition home or self-care (01) ==
LOC: LAB 10:24
PROVIDERS: PCP Family Medicine; Visit Provider Nurse Practitioner Women's Health
DX: O20.9 Hemorrhage in early pregnancy, unspecified (principal)
CPT/HCPCS: 36415; 84702; 85025

== ENCOUNTER → 2022-03-18 12:25 | Outpatient (BNVA) | payer OTHER, SELFPAY | PROVIDERS: PCP Family Medicine; Visit Provider Nurse Practitioner Women's Health | DX: Z36.87 Encounter for antenatal screening for uncertain dates (principal) | CPT/HCPCS: 76817; 84315 ==

== ENCOUNTER → 2022-04-14 09:18 | Outpatient (BNVA) | payer OTHER, SELFPAY | PROVIDERS: PCP Family Medicine; Visit Provider Nurse Practitioner Women's Health | DX: O26.851 Spotting complicating pregnancy, first trimester (principal); Z3A.10 10 weeks gestation of pregnancy | CPT/HCPCS: 76801 ==

== ENCOUNTER 2022-04-19 12:41 | Outpatient (CLI) | payer OTHER, SELFPAY ==
[2022-04-19 13:26] LABS: Hematocrit 38.1 % (37.0-47.0); Hemoglobin 12.5 g/dL (11.5-15.3); Mean Corpuscular HGB Conc 32.8 g/dL (30.0-36.0); Mean Corpuscular Hemoglobin 27.1 pg (28.0-34.0); Mean Corpuscular Volume 82.5 fl (81-99); Mean Platelet Volume 9.4 fL (7.4-10.4); Platelet Count 247 10^3/cmm (130-400); Red Blood Count 4.62 10^6/uL (4.1-5.3); Red Cell Distribution Width 13.2 % (12.1-15.1); White Blood Count 9.8 10^3/uL (4.0-10.0)
[2022-04-19 14:22] LABS: Hepatitis C Virus Antibody Non-Reactive (Nonreactive)
[2022-04-19 14:24] LABS: HIV 1 & 2 Antibody Non-Reactive (Non-Reactiv); HIV 1 & 2 Antigen Non-Reactive (Non-Reactiv)
[2022-04-20 14:55] LABS: RPR w(Moniotor) w/REFL Titer NON-REACTIVE (NON-REACTIVE)
== END 2022-04-19 12:42 | disposition home or self-care (01) ==
LOC: LAB 12:44
PROVIDERS: PCP Family Medicine; Visit Provider Obstetrics & Gynecology
DX: O09.899 Supervision of other high risk pregnancies, unspecified trimester (principal); O26.21 Pregnancy care for patient with recurrent pregnancy loss, first trimester
CPT/HCPCS: 36415; 80307; 84315; 85027; 86592; 86762; 86803; 86850; 86900; 87086; 87491; 87591; 87661; 87806; 88175

== ENCOUNTER → 2022-05-03 13:00 | Outpatient (BNVA) | payer OTHER, SELFPAY | PROVIDERS: PCP Family Medicine; Visit Provider Obstetrics & Gynecology | DX: O99.210 Obesity complicating pregnancy, unspecified trimester (principal); E66.9 Obesity, unspecified; Z3A.00 Weeks of gestation of pregnancy not specified | CPT/HCPCS: 87340 ==

== ENCOUNTER → 2022-05-24 08:12 | Outpatient (BNVA) | payer OTHER, SELFPAY | PROVIDERS: PCP Family Medicine; Visit Provider Nurse Practitioner Women's Health | DX: O09.899 Supervision of other high risk pregnancies, unspecified trimester (principal); Z78.9 Other specified health status; O21.9 Vomiting of pregnancy, unspecified; O99.210 Obesity complicating pregnancy, unspecified trimester; F41.9 Anxiety disorder, unspecified; J44.9 Chronic obstructive pulmonary disease, unspecified; F33.1 Major depressive disorder, recurrent, moderate; Z3A.00 Weeks of gestation of pregnancy not specified | CPT/HCPCS: 82105; 84315; 86787 ==

== ENCOUNTER → 2022-06-21 15:26 | Outpatient (BNVA) | payer OTHER, SELFPAY | PROVIDERS: PCP Family Medicine; Visit Provider Obstetrics & Gynecology | DX: Z34.92 Encounter for supervision of normal pregnancy, unspecified, second trimester (principal); Z3A.21 21 weeks gestation of pregnancy | CPT/HCPCS: 76805 ==

== ENCOUNTER 2022-07-11 15:45 | Outpatient (CLI) | payer OTHER, SELFPAY ==
[2022-07-11] VITALS (15 sets, daily range): BP systolic 124–197; BP diastolic 66–89; PULSE 78–100; RESP 16; BMI 42.5
[2022-07-11 16:45] LABS: Basophils % 0.3 %; Eosinophils # 0.1 10^3/uL (0.0-0.8); Eosinophils % 0.5 %; Hematocrit 38.1 % (37.0-47.0); Hemoglobin 12.4 g/dL (11.5-15.3); Lymphocytes # 2.5 10^3/uL (0.8-4.8); Lymphocytes % 16.9 %; Mean Corpuscular HGB Conc 32.5 g/dL (30.0-36.0); Mean Corpuscular Hemoglobin 27.1 pg (28.0-34.0); Mean Corpuscular Volume 83.2 fl (81-99); Mean Platelet Volume 9.7 fL (7.4-10.4); Monocytes % 6.4 %; Neutrophils # 10.99 10^3/uL (1.8-7.7); Neutrophils % 73.7 %; Nucleated Red Blood Cells % 0 %; Platelet Count 249 10^3/cmm (130-400); Red Blood Count 4.58 10^6/uL (4.1-5.3); White Blood Count 14.9 10^3/uL (4.0-10.0)
[2022-07-11 16:59] LABS: Urine Appearance Clear (CLEAR); Urine Color Yellow (Yellow)
[2022-07-11 17:00] LABS: Add Urine Culture? No; Bacteria Urine TRACE /hpf; Bilirubin Urine Neg (Negative); Blood Urine Neg (Negative); Glucose Urine UA Norm (Normal); Ketones Urine 1+ (Negative); Leukocyte Esterase Urine Negative (Negative); Mucus Urine 4+ /hpf; Nitrate Urine Negative (Negative); Protein Urine Neg (Negative); RBC Urine 0-4 /hpf (0-2); Urobilinogen Urine Norm (Negative); WBC Urine 0-4 /hpf (0-5); pH Urine 5 (5-7)
[2022-07-11 17:16] LABS: Alanine Aminotransferase 13 U/L (0-33); Albumin Level 3.7 g/dL (3.5-5.2); Alkaline Phosphatase 82 U/L (35-105); Anion Gap 14.9 (5-19); Aspartate Amino Transferase 11 U/L (0-32); Blood Urea Nitrogen 7 mg/dL (6-20); Calcium 8.6 mg/dL (8.5-10.5); Carbon Dioxide 22 mmol/L (22-29); Chloride 104 mmol/L (98-107); Globulin 3.1 g/dL (1.3-4.6); Glomerular Filtration Rate 191.5 mL/min (90-130); Glucose 78 mg/dL (65-115); Osmolality Calculated 281 mOsm/kg (285-295); Potassium 3.9 mmol/L (3.5-5.1); Sodium 137 mmol/L (136-145); Total Bilirubin 0.2 mg/dL (0.15-1.2); Total Protein 6.8 g/dL (6.6-8.7); Uric Acid 4.2 mg/dL (2.4-5.7)
[2022-07-11 17:24] LABS: Urine Creatinine 234 mg/dL (28-217); Urine Protein Random 14 mg/dL
[2022-07-11 17:26] LABS: UPRO/UCREAT Ratio 0.06 mg/mg CR
[2022-07-11] MEDS: acetaminophen 500 mg Tablet 1000 MG PO (18:07)
== END 2022-07-11 18:56 | disposition home or self-care (01) ==
LOC: OPOB 15:53 → OBGYN 15:56
PROVIDERS: PCP Family Medicine; Visit Provider Obstetrics & Gynecology
DX: O16.9 Unspecified maternal hypertension, unspecified trimester (principal); O26.899 Other specified pregnancy related conditions, unspecified trimester; H53.9 Unspecified visual disturbance; Z3A.00 Weeks of gestation of pregnancy not specified
CPT/HCPCS: 36415; 59025; 80053; 81001; 82570; 84156; 84550; 85025; 99211

== ENCOUNTER → 2022-07-14 13:52 | Outpatient (BNVA) | payer OTHER, SELFPAY | PROVIDERS: PCP Family Medicine; Visit Provider Obstetrics & Gynecology | DX: O36.62X0 Maternal care for excessive fetal growth, second trimester, not applicable or unspecified (principal); Z3A.24 24 weeks gestation of pregnancy | CPT/HCPCS: 76816 ==

== ENCOUNTER → 2022-07-19 08:00 | Outpatient (BNVA) | payer OTHER, SELFPAY | PROVIDERS: PCP Family Medicine; Visit Provider Nurse Practitioner Women's Health | DX: O09.899 Supervision of other high risk pregnancies, unspecified trimester (principal); O36.62X0 Maternal care for excessive fetal growth, second trimester, not applicable or unspecified; O99.210 Obesity complicating pregnancy, unspecified trimester; F41.9 Anxiety disorder, unspecified; F51.04 Psychophysiologic insomnia; Z78.9 Other specified health status; F33.1 Major depressive disorder, recurrent, moderate; Z3A.00 Weeks of gestation of pregnancy not specified | CPT/HCPCS: 82950; 84315 ==

== ENCOUNTER → 2022-07-25 08:05 | Outpatient (BNVA) | payer OTHER, SELFPAY | PROVIDERS: PCP Family Medicine; Visit Provider Nurse Practitioner Women's Health | DX: O09.899 Supervision of other high risk pregnancies, unspecified trimester (principal); Z3A.00 Weeks of gestation of pregnancy not specified | CPT/HCPCS: 82951; 82952 ==

== ENCOUNTER 2022-08-16 09:35 | Outpatient (CLI) | payer OTHER, SELFPAY ==
[2022-08-16] VITALS (17 sets, daily range): BP systolic 133–188; BP diastolic 63–102; PULSE 88–115; BMI 42.8
[2022-08-16 10:19] LABS: Actim Prom Negative
[2022-08-16] MEDS: labetalol 5 mg/mL SDV 20mL 20 MG IVP (10:19)
[2022-08-16 10:37] LABS: Basophils % 0.2 %; Eosinophils # 0.1 10^3/uL (0.0-0.8); Eosinophils % 0.4 %; Hemoglobin 12.8 g/dL (11.5-15.3); Lymphocytes % 15.1 %; Mean Corpuscular HGB Conc 32.8 g/dL (30.0-36.0); Mean Corpuscular Hemoglobin 27.5 pg (28.0-34.0); Mean Corpuscular Volume 83.9 fl (81-99); Mean Platelet Volume 9.5 fL (7.4-10.4); Monocytes # 0.9 10^3/uL (0.2-0.9); Monocytes % 6.8 %; Neutrophils # 10.05 10^3/uL (1.8-7.7); Neutrophils % 75.5 %; Nucleated Red Blood Cells % 0 %; Platelet Count 247 10^3/cmm (130-400); Red Blood Count 4.65 10^6/uL (4.1-5.3); Red Cell Distribution Width 14.4 % (12.1-15.1); White Blood Count 13.3 10^3/uL (4.0-10.0)
[2022-08-16 10:38] LABS: Urine Creatinine 112 mg/dL (28-217); Urine Protein Random 11 mg/dL
[2022-08-16 10:41] LABS: Specific Gravity, Urine 1.015 (1.005-1.030); Urine Appearance Cloudy (CLEAR); Urine Color Yellow (Yellow); pH Urine 9 (5-7)
[2022-08-16 10:42] LABS: Add Urine Microscopic? YES; Bilirubin Urine Neg (Negative); Blood Urine Neg (Negative); Glucose Urine UA Norm (Normal); Ketones Urine Negative (Negative); Leukocyte Esterase Urine 2+ (Negative); Nitrate Urine Negative (Negative); Protein Urine Neg (Negative); Sulfosalicylic Acid Urine Negative (Negative); Urobilinogen Urine Norm (Negative)
[2022-08-16 10:57] LABS: Alanine Aminotransferase 12 U/L (0-33); Albumin Level 3.5 g/dL (3.5-5.2); Alkaline Phosphatase 100 U/L (35-105); Aspartate Amino Transferase 10 U/L (0-32); Blood Urea Nitrogen 5 mg/dL (6-20); Calcium 9.1 mg/dL (8.5-10.5); Carbon Dioxide 22 mmol/L (22-29); Chloride 102 mmol/L (98-107); Globulin 3.3 g/dL (1.3-4.6); Glucose 80 mg/dL (65-115); Osmolality Calculated 278 mOsm/kg (285-295); Sodium 136 mmol/L (136-145); Total Bilirubin 0.2 mg/dL (0.15-1.2); Total Protein 6.8 g/dL (6.6-8.7); Uric Acid 4.6 mg/dL (2.4-5.7)
[2022-08-16 11:10] LABS: Nitrazine Paper, PH Negative
[2022-08-16 11:20] LABS: Amorphous Sediment Urine 1+ /hpf; Bacteria Urine 1+ /hpf; Mucus Urine 1+ /hpf; RBC Urine 0-4 /hpf (0-2); Squamous Epithelial Cell Urine 15-25 /hpf (0-5)
[2022-08-16 11:21] LABS: Add Urine Culture? No
== END 2022-08-16 12:25 | disposition home or self-care (01) ==
LOC: OPOB 09:39 → OBGYN 09:41
PROVIDERS: PCP Family Medicine; Visit Provider Obstetrics & Gynecology
DX: O16.9 Unspecified maternal hypertension, unspecified trimester (principal); O26.899 Other specified pregnancy related conditions, unspecified trimester; N89.8 Other specified noninflammatory disorders of vagina; Z3A.00 Weeks of gestation of pregnancy not specified
CPT/HCPCS: 36415; 59025; 80053; 81001; 82570; 83986; 84112; 84156; 84315; 84550; 85025; 96374; 99211; J3490

== ENCOUNTER 2022-08-17 19:46 | Outpatient (CLI) | payer OTHER, SELFPAY ==
[2022-08-17] VITALS (8 sets, daily range): BP systolic 123–146; BP diastolic 59–84; PULSE 88–109; RESP 16; BMI 43.4
[2022-08-17] MEDS: acetaminophen 500 mg Tablet 1000 MG PO (20:53)
[2022-08-17 20:58] LABS: Glucose Urine UA Norm (Normal); Protein Urine Trace (Negative); Specific Gravity, Urine 1.025 (1.005-1.030); Urine Appearance Slightly Cloudy (CLEAR); Urine Color Yellow (Yellow); pH Urine 5 (5-7)
[2022-08-17 20:59] LABS: Add Urine Microscopic? YES; Bilirubin Urine Neg (Negative); Blood Urine Trace (Negative); Ketones Urine 1+ (Negative); Leukocyte Esterase Urine 2+ (Negative); Nitrate Urine Negative (Negative); Urobilinogen Urine 1 mg/dL (Negative)
[2022-08-17 21:00] LABS: Bacteria Urine 1+ /hpf; Calcium Oxalate Crystals Urine 55-80 /hpf; RBC Urine 0-4 /hpf (0-2); Squamous Epithelial Cell Urine 15-25 /hpf (0-5); WBC Urine 40-55 /hpf (0-5)
[2022-08-17 21:01] LABS: Add Urine Culture? No
[2022-08-17 21:34] LABS: Urine Creatinine 288 mg/dL (28-217)
[2022-08-17 21:36] LABS: UPRO/UCREAT Ratio 0.07 mg/mg CR; Urine Protein Random 21 mg/dL
--- NOTE | 2022-08-17 22:08 | PC.NURSE ---
Patient stated she will not be taking her evening dose of labetalol since BP is now within normal range.
== END 2022-08-17 21:49 | disposition home or self-care (01) ==
LOC: OPOB 19:55 → OBGYN 19:56
PROVIDERS: PCP Family Medicine; Visit Provider Obstetrics & Gynecology
DX: O16.9 Unspecified maternal hypertension, unspecified trimester (principal); Z3A.00 Weeks of gestation of pregnancy not specified
CPT/HCPCS: 59025; 81001; 82570; 84156; 99211

== ENCOUNTER 2022-08-22 19:24 | Outpatient (CLI) | payer OTHER, SELFPAY ==
[2022-08-22] VITALS (7 sets, daily range): BP systolic 142–160; BP diastolic 64–83; PULSE 85–102; RESP 16; BMI 43.7
[2022-08-22 21:02] LABS: Bilirubin Urine Neg (Negative); Blood Urine Neg (Negative); Glucose Urine UA 1+ (Normal); Ketones Urine 1+ (Negative); Leukocyte Esterase Urine 1+ (Negative); Nitrate Urine Negative (Negative); Protein Urine Neg (Negative); Specific Gravity, Urine 1.015 (1.005-1.030); Urine Appearance SL Hazy (CLEAR); Urine Color Yellow (Yellow); Urobilinogen Urine Neg (Negative); pH Urine 6 (5-7)
[2022-08-22 21:03] LABS: Add Urine Culture? No; Bacteria Urine TRACE /hpf
--- NOTE | 2022-08-22 21:10 | USR_ITS ---
PROCEDURE INFORMATION: Exam: US Biophysical Profile Without Non-Stress Test Exam date and time: 08/22/2022 9:38 PM Age: 27 years old Clinical indication: Pain; Pain indication: Pre-term labor all day today. No vaginal bleeding. ; Additional info: contractions TECHNIQUE: Imaging protocol: US biophysical profile without non-stress testing. COMPARISON: US OB >= 14 weeks fetus [id number] 06/21/2022 3:37 PM FINDINGS: heart rate: 150 bpm presentation: Cephalic Placenta: Posterior and Fundal grade 0 placenta . Amniotic fluid: Amniotic fluid volume is normal. Amniotic fluid index: ADILIA is 20.7 cm. BIOPHYSICAL PROFILE: breathing movement (BPP): 2 out of 2. body movement (BPP): 2 out of 2. tone (BPP): 2 out of 2. Amniotic fluid (BPP): 2 out of 2. MATERNAL ANATOMY: Cervix: Limited visualization of the cervix due to positioning of the head and an incompletely filled bladder. Cervical length measures approximately 4.3 cm using a transabdominal measurement. Impression. Last. US/US OB BPP wo NST [id number] IMPRESSION: Biophysical profile score is 8 out of 8.
[2022-08-22 21:39] LABS: Basophils % 0.3 %; Eosinophils # 0.1 10^3/uL (0.0-0.8); Eosinophils % 0.8 %; Hematocrit 35.5 % (37.0-47.0); Hemoglobin 11.4 g/dL (11.5-15.3); Lymphocytes # 2.8 10^3/uL (0.8-4.8); Lymphocytes % 19.3 %; Mean Corpuscular HGB Conc 32.1 g/dL (30.0-36.0); Mean Corpuscular Hemoglobin 27.1 pg (28.0-34.0); Mean Corpuscular Volume 84.3 fl (81-99); Mean Platelet Volume 9.9 fL (7.4-10.4); Monocytes # 1.1 10^3/uL (0.2-0.9); Monocytes % 7.9 %; Neutrophils # 10.06 10^3/uL (1.8-7.7); Neutrophils % 69.3 %; Nucleated Red Blood Cells % 0 %; Platelet Count 220 10^3/cmm (130-400); Red Blood Count 4.21 10^6/uL (4.1-5.3); Red Cell Distribution Width 14.6 % (12.1-15.1); White Blood Count 14.5 10^3/uL (4.0-10.0)
[2022-08-22 22:06] LABS: Alanine Aminotransferase 15 U/L (0-33); Albumin Level 3.4 g/dL (3.5-5.2); Alkaline Phosphatase 99 U/L (35-105); Anion Gap 14.3 (5-19); Aspartate Amino Transferase 12 U/L (0-32); Blood Urea Nitrogen 4 mg/dL (6-20); Calcium 8.9 mg/dL (8.5-10.5); Carbon Dioxide 24 mmol/L (22-29); Chloride 106 mmol/L (98-107); Globulin 2.8 g/dL (1.3-4.6); Glucose 82 mg/dL (65-115); Osmolality Calculated 286 mOsm/kg (285-295); Potassium 4.3 mmol/L (3.5-5.1); Sodium 140 mmol/L (136-145); Total Bilirubin 0.2 mg/dL (0.15-1.2); Total Protein 6.2 g/dL (6.6-8.7); Uric Acid 4.3 mg/dL (2.4-5.7)
[2022-08-22 22:43] LABS: Urine Creatinine 115 mg/dL (28-217); Urine Protein Random 10 mg/dL
[2022-08-22 22:46] LABS: UPRO/UCREAT Ratio 0.09 mg/mg CR
== END 2022-08-22 23:02 | disposition home or self-care (01) ==
LOC: OPOB 19:29 → OBGYN 19:32
PROVIDERS: PCP Family Medicine; Visit Provider Obstetrics & Gynecology
DX: O47.9 False labor, unspecified (principal); Z3A.00 Weeks of gestation of pregnancy not specified
CPT/HCPCS: 36415; 59025; 76819; 80053; 81001; 82570; 84156; 84550; 85025; 99211

== ENCOUNTER 2022-09-02 13:15 | Outpatient (CLI) | payer OTHER, SELFPAY ==
[2022-09-02 13:15] VITALS: BMI 43.7
[2022-09-02 13:36] VITALS: BP 171/83; PULSE 84
[2022-09-02 13:56] VITALS: BP 182/86; PULSE 82
--- NOTE | 2022-09-02 14:03 | US_ITS ---
WS: [id number] BIOPHYSICAL PROFILE AMNIOTIC FLUID HISTORY: Chronic HTN COMPARISON: 08/22/2022 position: Vertex. Cardiac activity: 131 bpm. Cervix: Obscured. Placenta: Posterior, no previa or abruption. Placenta grade: 2 Parameters are as follows: Breathin Movement: 2 Tone: 2 Fluid volume: 2 Amniotic Fluid Index: 13.2 cm; single vertical pocket 3.7 cm. US/US OB BPP wo NST [id number] IMPRESSION: 1. Biophysical profile score: 8/8. 2. Normal amniotic fluid.
[2022-09-02 14:36] LABS: Basophils % 0.2 %; Eosinophils # 0.1 10^3/uL (0.0-0.8); Eosinophils % 0.6 %; Hematocrit 35.5 % (37.0-47.0); Hemoglobin 11.4 g/dL (11.5-15.3); Lymphocytes # 2.1 10^3/uL (0.8-4.8); Lymphocytes % 17.3 %; Mean Corpuscular HGB Conc 32.1 g/dL (30.0-36.0); Mean Corpuscular Hemoglobin 27.1 pg (28.0-34.0); Mean Corpuscular Volume 84.3 fl (81-99); Mean Platelet Volume 9.9 fL (7.4-10.4); Monocytes % 7.9 %; Neutrophils # 8.74 10^3/uL (1.8-7.7); Neutrophils % 72.4 %; Nucleated Red Blood Cells % 0 %; Platelet Count 223 10^3/cmm (130-400); Red Blood Count 4.21 10^6/uL (4.1-5.3); Red Cell Distribution Width 14.6 % (12.1-15.1); White Blood Count 12.1 10^3/uL (4.0-10.0)
[2022-09-02 14:45] VITALS: BP 176/80; PULSE 85
[2022-09-02 14:45] LABS: Bilirubin Urine Neg (Negative); Blood Urine Neg (Negative); Glucose Urine UA Norm (Normal); Ketones Urine Negative (Negative); Leukocyte Esterase Urine 2+ (Negative); Nitrate Urine Negative (Negative); Protein Urine Neg (Negative); Specific Gravity, Urine 1.015 (1.005-1.030); Urine Appearance Clear (CLEAR); Urine Color Yellow (Yellow); Urobilinogen Urine Norm (Negative); pH Urine 7 (5-7)
[2022-09-02 14:46] LABS: Bacteria Urine 1+ /hpf; Mucus Urine 2+ /hpf; RBC Urine 0-4 /hpf (0-2); WBC Urine 25-40 /hpf (0-5)
[2022-09-02 14:47] LABS: Add Urine Culture? Yes; Amorphous Sediment Urine 1+ /hpf
[2022-09-02 14:56] LABS: Urine Creatinine 104 mg/dL (28-217); Urine Protein Random 8 mg/dL
[2022-09-02 14:57] LABS: UPRO/UCREAT Ratio 0.08 mg/mg CR
[2022-09-02 15:05] LABS: Alanine Aminotransferase 14 U/L (0-33); Albumin Level 3.5 g/dL (3.5-5.2); Alkaline Phosphatase 102 U/L (35-105); Anion Gap 15.8 (5-19); Aspartate Amino Transferase 13 U/L (0-32); Blood Urea Nitrogen 6 mg/dL (6-20); Carbon Dioxide 25 mmol/L (22-29); Chloride 100 mmol/L (98-107); Glucose 92 mg/dL (65-115); Osmolality Calculated 281 mOsm/kg (285-295); Potassium 3.8 mmol/L (3.5-5.1); Sodium 137 mmol/L (136-145); Total Bilirubin 0.2 mg/dL (0.15-1.2); Total Protein 6.5 g/dL (6.6-8.7); Uric Acid 4.6 mg/dL (2.4-5.7)
[2022-09-02 15:32] VITALS: BP 126/58; PULSE 75
[2022-09-02 15:33] VITALS: BP 150/72; PULSE 81
== END 2022-09-02 16:46 | disposition home or self-care (01) ==
LOC: OPOB 13:22 → OBGYN 13:25
PROVIDERS: PCP Family Medicine; Visit Provider Obstetrics & Gynecology
DX: O16.9 Unspecified maternal hypertension, unspecified trimester (principal); Z3A.00 Weeks of gestation of pregnancy not specified
CPT/HCPCS: 36415; 59025; 76819; 80053; 81001; 82570; 84156; 84550; 85025; 87086; 99211

== ENCOUNTER 2022-09-06 11:49 | Outpatient (CLI) | payer OTHER, SELFPAY ==
[2022-09-06 12:00] VITALS: RESP 18
--- NOTE | 2022-09-06 12:01 | US_ITS ---
WS: [id number] BIOPHYSICAL PROFILE AMNIOTIC FLUID HISTORY: chronic hypertension COMPARISON: 09/02/2022 position: Vertex. Cardiac activity: 147 bpm. Cervix: closed. Placenta: Posterior, no previa or abruption. Placenta grade: 2 Parameters are as follows: Breathin Movement: 2 Tone: 2 Fluid volume: 2 Several pockets of amniotic fluid greater than 2 cm in depth. US/US OB BPP wo NST [id number] IMPRESSION: 1. Biophysical profile score: 8/8. 2. Normal amniotic fluid.
[2022-09-06 12:06] VITALS: BP 140/77; PULSE 88
[2022-09-06 12:21] VITALS: BP 141/79; PULSE 82
[2022-09-06 12:36] VITALS: BP 134/74; PULSE 83
[2022-09-06 13:00] VITALS: BP 134/74; PULSE 83
== END 2022-09-06 13:00 | disposition home or self-care (01) ==
LOC: OPOB 11:54 → OBGYN 11:56
PROVIDERS: PCP Family Medicine; Visit Provider Obstetrics & Gynecology
DX: O16.9 Unspecified maternal hypertension, unspecified trimester (principal); Z3A.00 Weeks of gestation of pregnancy not specified
CPT/HCPCS: 59025; 76819; 99211

== ENCOUNTER 2022-09-12 13:52 | Outpatient (CLI) | payer OTHER, SELFPAY ==
[2022-09-12 13:52] VITALS: BMI 43.5
[2022-09-12 14:03] VITALS: BP 165/83; PULSE 99
[2022-09-12 14:05] VITALS: TEMP 36.2
[2022-09-12 14:22] VITALS: BP 137/73; PULSE 96
--- NOTE | 2022-09-12 14:25 | US_ITS ---
WS: [id number] BIOPHYSICAL PROFILE AMNIOTIC FLUID HISTORY: Hypertension COMPARISON: 09/06/2022 position: Vertex. Cardiac activity: 126 bpm. Cervix: Not visualized. Placenta: Posterior, no previa or abruption. Placenta grade: 2 Parameters are as follows: Breathin Movement: 2 Tone: 2 Fluid volume: 2 Amniotic Fluid Index: 9.4 cm; single deep vertical pocket 3.2 cm. US/US OB BPP wo NST [id number] IMPRESSION: 1. Biophysical profile score: 8/8. 2. Normal amniotic fluid.
[2022-09-12 14:42] VITALS: BP 134/64; PULSE 91
[2022-09-12 15:02] VITALS: BP 137/75; PULSE 89
[2022-09-12 15:22] VITALS: BP 129/66; PULSE 84
== END 2022-09-12 16:08 | disposition home or self-care (01) ==
LOC: OPOB 13:56 → OBGYN 13:57
PROVIDERS: PCP Family Medicine; Visit Provider Obstetrics & Gynecology
DX: O16.9 Unspecified maternal hypertension, unspecified trimester (principal); Z3A.00 Weeks of gestation of pregnancy not specified
CPT/HCPCS: 59025; 76819

== ENCOUNTER 2022-09-15 09:35 | Outpatient (CLI) | payer OTHER, SELFPAY ==
[2022-09-15 09:35] VITALS: BMI 43.5
[2022-09-15 09:56] VITALS: BP 141/81; PULSE 96
--- NOTE | 2022-09-15 10:02 | US_ITS ---
WS: [id number] ULTRASOUND OB LIMITED TECHNIQUE: Limited ultrasound examination of the fetus. CLINICAL INFORMATION: bpp for hypertension COMPARISON: 09/12/2022 FINDINGS: Cervix is long and closed measuring 4.1 cm Single interuterine gestation. presentation is vertex placental location is posterior. Placenta grade: 2 heart rate 129 BPM. Largest single vertical pocket 2.9 cm Biophysical profile 8 out of 8. breathin movement: 2 tone: 2 Amniotic fluid: 2 IMPRESSION: BPP 8 out of 8
[2022-09-15 10:03] VITALS: RESP 18
[2022-09-15 10:11] VITALS: BP 133/73; PULSE 85
[2022-09-15 10:26] VITALS: BP 141/74; PULSE 86
[2022-09-15 10:33] LABS: Basophils # 0.1 10^3/uL (0.0-0.1); Basophils % 0.4 %; Eosinophils # 0.1 10^3/uL (0.0-0.8); Eosinophils % 0.6 %; Hematocrit 37.4 % (37.0-47.0); Hemoglobin 12.3 g/dL (11.5-15.3); Lymphocytes # 2.1 10^3/uL (0.8-4.8); Lymphocytes % 15.9 %; Mean Corpuscular HGB Conc 32.9 g/dL (30.0-36.0); Mean Corpuscular Hemoglobin 27.6 pg (28.0-34.0); Mean Corpuscular Volume 83.9 fl (81-99); Monocytes % 7.8 %; Neutrophils # 9.69 10^3/uL (1.8-7.7); Nucleated Red Blood Cells % 0 %; Platelet Count 242 10^3/cmm (130-400); Red Blood Count 4.46 10^6/uL (4.1-5.3); Red Cell Distribution Width 14.6 % (12.1-15.1); White Blood Count 13.3 10^3/uL (4.0-10.0)
[2022-09-15 10:41] VITALS: BP 138/73; PULSE 86
[2022-09-15 10:56] VITALS: BP 144/73; PULSE 82
[2022-09-15 10:56] LABS: UPRO/UCREAT Ratio 0.07 mg/mg CR; Urine Creatinine 154 mg/dL (28-217); Urine Protein Random 11 mg/dL
[2022-09-15 10:59] LABS: Add Urine Microscopic? YES; Alanine Aminotransferase 13 U/L (0-33); Albumin Level 3.5 g/dL (3.5-5.2); Alkaline Phosphatase 110 U/L (35-105); Anion Gap 16.4 (5-19); Aspartate Amino Transferase 17 U/L (0-32); Bilirubin Urine Neg (Negative); Blood Urea Nitrogen 4 mg/dL (6-20); Blood Urine Neg (Negative); Calcium 8.7 mg/dL (8.5-10.5); Carbon Dioxide 21 mmol/L (22-29); Chloride 103 mmol/L (98-107); Glomerular Filtration Rate 191.5 mL/min (90-130); Glucose 80 mg/dL (65-115); Glucose Urine UA Trace (Normal); Ketones Urine Negative (Negative); Leukocyte Esterase Urine Trace (Negative); Nitrate Urine Negative (Negative); Osmolality Calculated 278 mOsm/kg (285-295); Potassium 4.4 mmol/L (3.5-5.1); Protein Urine Neg (Negative); Sodium 136 mmol/L (136-145); Total Bilirubin 0.2 mg/dL (0.15-1.2); Total Protein 6.5 g/dL (6.6-8.7); Urine Appearance Clear (CLEAR); Urine Color Yellow (Yellow); Urobilinogen Urine Norm (Negative); pH Urine 7 (5-7)
[2022-09-15 11:00] LABS: Bacteria Urine TRACE /hpf; Squamous Epithelial Cell Urine RARE /hpf (0-5); WBC Urine RARE /hpf (0-5)
== END 2022-09-15 11:05 | disposition home or self-care (01) ==
LOC: OPOB 09:42 → OBGYN 09:43
PROVIDERS: PCP Family Medicine; Visit Provider Obstetrics & Gynecology
DX: O16.9 Unspecified maternal hypertension, unspecified trimester (principal); Z3A.00 Weeks of gestation of pregnancy not specified
CPT/HCPCS: 36415; 59025; 76819; 80053; 81001; 82570; 84156; 84315; 84550; 85025; 99211

== ENCOUNTER 2022-09-20 15:54 | Outpatient (CLI) | payer OTHER, SELFPAY ==
[2022-09-20 15:50] VITALS: BMI 43.5
[2022-09-20 16:00] VITALS: BP 142/81; PULSE 89
[2022-09-20 16:09] VITALS: RESP 18
[2022-09-20 16:15] VITALS: BP 146/82; PULSE 87
--- NOTE | 2022-09-20 16:16 | USR_ITS ---
PROCEDURE INFORMATION: Exam: US , Limited Exam date and time: 09/20/2022 4:51 PM Age: 27 years old Clinical indication: Other: HTN; ; Additional info: Gestational hypertension LABS AND CLINICAL REPORTS: Last menstrual period start date: 02/01/2022 Gestational age (Established): 33 w 0 d Estimated due date (Established): 11/08/2022 TECHNIQUE: Imaging protocol: Real-time ultrasound of the maternal uterus with image documentation. Exam focused on the clinical indication. COMPARISON: US OB BPP NST [id number] 09/15/2022 10:21 AM FINDINGS: Gestation: Single live intrauterine gestation. heart rate: 157 bpm Amniotic fluid index: ADILIA is within normal limits at 12.5 cm. MATERNAL: Cervix: Cervical length measures 4.8 cm. Cervix is closed. US/US OB BPP NST [id number] IMPRESSION: Single live intrauterine gestation with heart rate of 157 bpm. Cervix is normal in length and is closed.
[2022-09-20 16:31] VITALS: BP 155/94; PULSE 86
[2022-09-20 16:46] VITALS: BP 146/82; PULSE 90
== END 2022-09-20 17:08 | disposition home or self-care (01) ==
LOC: OPOB 15:55 → OBGYN 15:57
PROVIDERS: PCP Family Medicine; Visit Provider Obstetrics & Gynecology
DX: O16.9 Unspecified maternal hypertension, unspecified trimester (principal); Z3A.00 Weeks of gestation of pregnancy not specified
CPT/HCPCS: 59025; 76819

== ENCOUNTER 2022-09-27 12:22 | Outpatient (CLI) | payer OTHER, SELFPAY ==
[2022-09-27 12:39] VITALS: BP 142/89; PULSE 96
--- NOTE | 2022-09-27 12:48 | US_ITS ---
WS: [id number] ULTRASOUND OB LIMITED TECHNIQUE: Limited ultrasound examination of the fetus. CLINICAL INFORMATION: WELLBEING, GESTIONAL HYPERTENSION COMPARISON: 09/20/2022 FINDINGS: Cervix is long and closed measuring 4.8 cm. Single interuterine gestation. presentation is vertex heart rate 138 BPM. Largest single vertical pocket 4.0 cm Biophysical profile 8 out of 8. breathin movement: 2 tone: 2 Amniotic fluid: 2 IMPRESSION: Normal biophysical profile 8 out of 8
[2022-09-27 12:59] VITALS: BP 146/77; PULSE 94
[2022-09-27 13:00] VITALS: BMI 43.8
[2022-09-27 13:34] LABS: Nitrazine Paper, PH Negative
[2022-09-27 13:38] LABS: Actim Prom Negative
[2022-09-27 13:58] VITALS: BP 146/77; PULSE 94; RESP 18
== END 2022-09-27 13:50 | disposition home or self-care (01) ==
LOC: OPOB 12:26 → OBGYN 12:27
PROVIDERS: Obstetrics & Gynecology; PCP Family Medicine; Visit Provider Obstetrics & Gynecology
DX: O13.9 Gestational [pregnancy-induced] hypertension without significant proteinuria, unspecified trimester (principal); Z3A.00 Weeks of gestation of pregnancy not specified
CPT/HCPCS: 59025; 76819; 83986; 84112; 99211

== ENCOUNTER → 2022-10-03 07:58 | Outpatient (BNVA) | payer OTHER, SELFPAY | PROVIDERS: PCP Family Medicine; Visit Provider Obstetrics & Gynecology | DX: O09.899 Supervision of other high risk pregnancies, unspecified trimester (principal); Z3A.34 34 weeks gestation of pregnancy | CPT/HCPCS: 76815; 76819; 84315 ==

== ENCOUNTER 2022-10-04 10:35 | Outpatient (CLI) | payer OTHER, SELFPAY ==
[2022-10-04 10:35] VITALS: RESP 18; BMI 43.9
[2022-10-04 10:53] VITALS: BP 132/81; PULSE 83
[2022-10-04 11:12] VITALS: BP 142/89; PULSE 86
== END 2022-10-04 11:15 | disposition home or self-care (01) ==
LOC: OPOB 10:39 → OBGYN 10:40
PROVIDERS: PCP Family Medicine; Visit Provider Obstetrics & Gynecology
DX: Z3A.00 Weeks of gestation of pregnancy not specified; O13.9 Gestational [pregnancy-induced] hypertension without significant proteinuria, unspecified trimester
CPT/HCPCS: 59025; 99211

== ENCOUNTER → 2022-10-07 08:20 | Outpatient (BNVA) | payer OTHER, SELFPAY | PROVIDERS: PCP Family Medicine; Visit Provider Obstetrics & Gynecology | DX: O09.899 Supervision of other high risk pregnancies, unspecified trimester (principal); Z3A.35 35 weeks gestation of pregnancy | CPT/HCPCS: 84315; 87081 ==

== ENCOUNTER 2022-10-11 09:20 | Outpatient (CLI) | payer OTHER, SELFPAY ==
[2022-10-11 09:46] VITALS: BP 143/84; PULSE 91; TEMP 35.7
[2022-10-11 10:00] VITALS: BMI 44.1
[2022-10-11 10:02] VITALS: BP 131/68; PULSE 86
== END 2022-10-11 10:15 | disposition home or self-care (01) ==
LOC: OPOB 09:20 → OBGYN 09:41
PROVIDERS: PCP Family Medicine; Visit Provider Obstetrics & Gynecology
DX: O16.9 Unspecified maternal hypertension, unspecified trimester (principal); Z3A.00 Weeks of gestation of pregnancy not specified
CPT/HCPCS: 59025; 76819

== ENCOUNTER 2022-10-11 14:55 | Outpatient (CLI) | payer OTHER, SELFPAY ==
[2022-10-11] VITALS (10 sets, daily range): BP systolic 125–179; BP diastolic 60–91; PULSE 85–97; RESP 16; BMI 44.1
[2022-10-11] MEDS: NIFEdipine 10 mg Capsule 30 MG PO (15:45)
[2022-10-11 16:54] LABS: Actim Prom Negative
== END 2022-10-11 17:15 | disposition home or self-care (01) ==
LOC: OPOB 14:55 → OBGYN 14:56
PROVIDERS: PCP Family Medicine; Visit Provider Obstetrics & Gynecology
DX: O26.899 Other specified pregnancy related conditions, unspecified trimester (principal); Z3A.00 Weeks of gestation of pregnancy not specified; R10.9 Unspecified abdominal pain
CPT/HCPCS: 59025; 84112; 99211

== ENCOUNTER 2022-10-18 08:19 | Outpatient (CLI) | payer OTHER, SELFPAY ==
[2022-10-18] VITALS (11 sets, daily range): BP systolic 150–177; BP diastolic 74–101; PULSE 81–101; TEMP 36.1; BMI 43.9
[2022-10-18 10:18] LABS: Basophils % 0.2 %; Eosinophils # 0.1 10^3/uL (0.0-0.8); Eosinophils % 0.4 %; Hematocrit 38.6 % (36-47); Lymphocytes # 1.8 10^3/uL (0.8-4.8); Mean Corpuscular HGB Conc 32.9 g/dL (30-55); Mean Corpuscular Hemoglobin 27.4 pg (27-33); Mean Corpuscular Volume 83.2 fl (85-98); Mean Platelet Volume 10.1 fL (7.4-10.4); Monocytes # 0.8 10^3/uL (0.2-0.9); Monocytes % 7.3 %; Neutrophils # 8.49 10^3/uL (1.8-7.7); Neutrophils % 74.8 %; Nucleated Red Blood Cells % 0 %; Platelet Count 231 10^3/cmm (157-399); Red Blood Count 4.64 10^6/uL (3.85-5.65); Red Cell Distribution Width 14.8 % (12.1-15.1); White Blood Count 11.36 10^3/uL (3.29-11.43)
[2022-10-18 10:38] LABS: Alanine Aminotransferase 16 U/L (0-33); Albumin Level 3.7 g/dL (3.5-5.2); Alkaline Phosphatase 119 U/L (35-105); Anion Gap 15.1 (5-19); Aspartate Amino Transferase 12 U/L (0-32); Blood Urea Nitrogen 6 mg/dL (6-20); Calcium 8.8 mg/dL (8.5-10.5); Carbon Dioxide 22 mmol/L (22-29); Chloride 103 mmol/L (98-107); Globulin 2.6 g/dL (1.3-4.6); Glomerular Filtration Rate 191.5 mL/min (90-130); Glucose 71 mg/dL (65-115); Osmolality Calculated 278 mOsm/kg (285-295); Potassium 4.1 mmol/L (3.5-5.1); Sodium 136 mmol/L (136-145); Total Bilirubin 0.2 mg/dL (0.15-1.2); Total Protein 6.3 g/dL (6.6-8.7); Uric Acid 5.1 mg/dL (2.4-5.7)
[2022-10-18 10:44] LABS: Urine Creatinine 85 mg/dL (28-217); Urine Protein Random 8 mg/dL
[2022-10-18 10:51] LABS: UPRO/UCREAT Ratio 0.09 mg/mg CR
[2022-10-18 11:03] LABS: Actim Prom Negative
--- NOTE | 2022-10-18 11:25 | P.TNLD_ITS ---
OB L&D Triage Visit Information: Date of evaluation: 10/18/22 Comments/Additional reason(s) for visit: 27-year-old female G5, P2 at 37.0 weeks gestation with NAJMA 11/08/2022 observed on labor and delivery for nonstress test due to gestational hypertension. Patient complained of occasional headache with episodes of blurred vision, she denies shortness of breath or chest pain no abdominal pain. She admits to good movement and no contractions. Patient's biophysical profile today 09/13 with ADILIA 6.4 cm. Serial blood pressure monitoring with readings of 170/74, 177/101. NST?reactive, category 1 Cervix?4 cm / 70%/-3 vertex presentation Reviewed patient with Dr. Garcia with above findings, his instructions were to bring patient back in to labor and delivery 10/19/[address] Ballesteros's plan was reviewed with patient, patient was advised to increase her p.o. fluids especially water, take her labetalol twice daily as prescribed. If contractions, leakage of fluid or vaginal bleeding or decreased movement occurs patient is to return to labor and delivery. Patient verbalizes understanding.. Evaluation: Baseline heart rate: 140 monitor accelerations: Present 15x15 monitor decelerations: None Cervical dilation (cm): 4 Cervical effacement (%): 70 station: -3 Laboratory results: Laboratory Tests 10/18/22 10/18/22 10/18/22 09:45 10:01 10:01 WBC 11.36 RBC 4.64 Hgb 12.70 Hct 38.6 MCV 83.2 L MCH 27.4 MCHC 32.9 RDW 14.8 Plt Count 231 MPV 10.1 Neut % (Auto) 74.8 Lymph % (Auto) 16.0 Pecos % (Auto) 7.3 Eos % (Auto) 0.4 Baso % (Auto) 0.2 Neut # (Auto) 8.49 H Lymph # (Auto) 1.8 [place] # (Auto) 0.8 Eos # (Auto) 0.1 Baso # (Auto) 0.0 Nucleated RBC % (a uto) 0 Nucleated RBCs # 0.0 Sodium 136 Potassium 4.1 Chloride 103 Carbon Dioxide 22 Anion Gap 15.1 BUN 6 Creatinine 0.4 L GFR Calculation 191.5 H Glucose 71 Calculated Osmolal ity 278 L Uric Acid 5.1 Calcium 8.8 Total Bilirubin 0.2 AST 12 ALT 16 Alkaline Phosphata se 119 H Total Protein 6.3 L Albumin 3.7 Globulin 2.6 Insulin-like GF I U Random Total Pro tein 8 Urine Creatinine 85 Protein/Creatinin Ratio 0.09 10/18/22 10:50 WBC RBC Hgb Hct MCV MCH MCHC RDW Plt Count MPV Neut % (Auto) Lymph % (Auto) [place] % (Auto) Eos % (Auto) Baso % (Auto) Neut # (Auto) Lymph # (Auto) [place] # (Auto) Eos # (Auto) Baso # (Auto) Nucleated RBC % (a uto) Nucleated RBCs # Sodium Potassium Chloride Carbon Dioxide Anion Gap BUN Creatinine GFR Calculation Glucose Calculated Osmolal ity Uric Acid Calcium Total Bilirubin AST ALT Alkaline Phosphata se Total Protein Albumin Globulin Insulin-like GF I Negative U Random Total Pro tein Urine Creatinine Protein/Creatinin Ratio Vital signs: Vital Signs - 24 hr 10/18/22 08:34 10/18/22 08:49 10/18/22 09:03 Temperature 97.0 F L Pulse Rate 101 H 94 Blood Pressure 161/85 169/80 10/18/22 09:04 10/18/22 09:19 10/18/22 09:56 Temperature 96.9 F L Pulse Rate 96 95 Blood Pressure 169/79 150/74 10/18/22 10:20 10/18/22 10:34 10/18/22 10:50 Temperature Pulse Rate 87 81 86 Blood Pressure 170/94 170/74 177/101 10/18/22 11:04 10/18/22 09:56 Temperature 96.9 F L Pulse Rate 87 Blood Pressure 177/98 Care NAJMA Calculator Estimated Delivery Date Method Current WG Current Estimate 11/08/22 LMP (Certain) 37w 0d Other Estimates 11/10/22 Ultrasound #1 36w 5d Specific Issues/Plans * LGA-- 89th% at 24 weeks * OBESITY * ANXIETY/DEPRESSION-using buspar prn * FIRST TRIMESTER BLEEDING-- resolved * UNKNOWN VARICELLA STATUS-- < 135--- no immunity; needs PP vaccination * RECURRENT SABs Additional Care Information: Gestational hypertension Final Diagnosis Final Diagnosis (1) 37 weeks gestation of : Status: Acute Code(s): Z3A.37 - 37 weeks gestation of (2) Hypertension affecting in third trimester: Plan: 1. Discharge patient for from observational status, patient to return to labor and delivery 01/19/2020 3 AM for NST, and BP observation... 2. Patient to continue taking her labetalol 200 mg 1 twice daily. Status: Acute Code(s): O16.3 - Unspecified maternal hypertension, third trimester (3) macrosomia during in second trimester: Status: Acute Code(s): O36.62X0 - Maternal care for excessive growth, second trimester, not applicable or unspecified (4) Supervision of other high-risk : Status: Acute Code(s): O09.899 - Supervision of other high risk pregnancies, unspecified trimester (5) Obesity affecting : Status: Acute Code(s): O99.210 - Obesity complicating , unspecified trimester Coding Level of Care Code Acute Code for Chg Fwd Diagnoses 37 weeks gestation of Z3A.37 Hypertension affecting in third trimester O16.3 macrosomia during in second trimester O36.62X0 Supervision of other high-risk O09.899 Obesity affecting O99.210
== END 2022-10-18 11:30 | disposition home or self-care (01) ==
LOC: OPOB 08:23 → OBGYN 08:23
PROVIDERS: Obstetrics & Gynecology; PCP Family Medicine; Visit Provider Obstetrics & Gynecology
DX: O16.3 Unspecified maternal hypertension, third trimester (principal); Z3A.37 37 weeks gestation of pregnancy; O36.62X0 Maternal care for excessive fetal growth, second trimester, not applicable or unspecified; O09.899 Supervision of other high risk pregnancies, unspecified trimester; O99.210 Obesity complicating pregnancy, unspecified trimester
CPT/HCPCS: 36415; 59025; 76819; 80053; 82570; 84112; 84156; 84315; 84550; 85025; 99211

== ENCOUNTER 2022-10-19 02:51 | Outpatient (CLI) | payer OTHER, SELFPAY ==
[2022-10-19 02:45] VITALS: BMI 42.8
[2022-10-19 03:00] VITALS: BP 163/87; PULSE 97
[2022-10-19 03:14] VITALS: BP 153/84; PULSE 92
[2022-10-19 03:29] VITALS: BP 151/82; PULSE 92
[2022-10-19 03:45] VITALS: BP 151/82; PULSE 92; RESP 16; TEMP 36.3
[2022-10-19 04:04] LABS: Nitrazine Paper, PH Negative
== END 2022-10-19 03:45 | disposition home or self-care (01) ==
LOC: OPOB 02:52 → OBGYN 02:53
PROVIDERS: PCP Family Medicine; Visit Provider Obstetrics & Gynecology
DX: Z46.89 Encounter for fitting and adjustment of other specified devices (principal); Z3A.00 Weeks of gestation of pregnancy not specified; R10.9 Unspecified abdominal pain
CPT/HCPCS: 59025; 83986; 99211

== ENCOUNTER → 2022-10-21 08:44 | Outpatient (BNVA) | payer OTHER, SELFPAY | PROVIDERS: PCP Family Medicine; Visit Provider Nurse Practitioner Women's Health | DX: Z3A.37 37 weeks gestation of pregnancy (principal); O16.3 Unspecified maternal hypertension, third trimester; O36.62X0 Maternal care for excessive fetal growth, second trimester, not applicable or unspecified; O99.210 Obesity complicating pregnancy, unspecified trimester; O09.899 Supervision of other high risk pregnancies, unspecified trimester; F41.9 Anxiety disorder, unspecified; Z78.9 Other specified health status; F33.1 Major depressive disorder, recurrent, moderate | CPT/HCPCS: 82570; 84156; 84315 ==

== ENCOUNTER 2022-10-23 14:40 | Outpatient (CLI) | payer OTHER, SELFPAY ==
[2022-10-23 14:40] VITALS: BMI 43.0
[2022-10-23 14:50] VITALS: BP 148/78; PULSE 90
[2022-10-23 15:10] VITALS: BP 132/74; PULSE 83
[2022-10-23 15:13] LABS: Actim Prom Negative
[2022-10-23 15:30] VITALS: BP 136/76; PULSE 82
[2022-10-23 15:55] VITALS: BP 136/76; PULSE 82; RESP 20
== END 2022-10-23 15:55 | disposition home or self-care (01) ==
LOC: OPOB 14:43 → OBGYN 14:44
PROVIDERS: PCP Family Medicine; Visit Provider Obstetrics & Gynecology
DX: O26.899 Other specified pregnancy related conditions, unspecified trimester (principal); Z3A.00 Weeks of gestation of pregnancy not specified; N89.8 Other specified noninflammatory disorders of vagina
CPT/HCPCS: 59025; 83986; 84112; 99211

== ENCOUNTER → 2022-10-25 07:44 | Outpatient (BNVA) | payer OTHER, SELFPAY | PROVIDERS: PCP Family Medicine; Visit Provider Obstetrics & Gynecology | DX: O09.893 Supervision of other high risk pregnancies, third trimester (principal); Z3A.37 37 weeks gestation of pregnancy | CPT/HCPCS: 76819 ==

== ENCOUNTER 2022-10-25 12:07 | Inpatient (IN) | payer OTHER, SELFPAY ==
[2022-10-25] VITALS (65 sets, daily range): BP systolic 104–182; BP diastolic 55–94; PULSE 78–107; RESP 17–18; TEMP 35.9–36.6; O2SAT 97–100; BMI 43.0
[2022-10-25] MEDS: labetalol 200 mg Tablet PO (09:16)
[2022-10-25 10:23] LABS: Basophils % 0.2 %; Eosinophils % 0.3 %; Hematocrit 38.5 % (36-47); Lymphocytes # 1.9 10^3/uL (0.8-4.8); Lymphocytes % 15.1 %; Mean Corpuscular HGB Conc 32.5 g/dL (30-55); Mean Corpuscular Hemoglobin 27.5 pg (27-33); Mean Corpuscular Volume 84.8 fl (85-98); Mean Platelet Volume 10.2 fL (7.4-10.4); Monocytes # 0.9 10^3/uL (0.2-0.9); Neutrophils # 9.74 10^3/uL (1.8-7.7); Neutrophils % 76.5 %; Nucleated Red Blood Cells % 0 %; Platelet Count 246 10^3/cmm (157-399); Red Blood Count 4.54 10^6/uL (3.85-5.65); Red Cell Distribution Width 14.7 % (12.1-15.1); White Blood Count 12.72 10^3/uL (3.29-11.43)
[2022-10-25 10:48] LABS: Alanine Aminotransferase 23 U/L (0-33); Albumin Level 3.6 g/dL (3.5-5.2); Alkaline Phosphatase 137 U/L (35-105); Blood Urea Nitrogen 7 mg/dL (6-20); Calcium 8.8 mg/dL (8.5-10.5); Carbon Dioxide 21 mmol/L (22-29); Chloride 103 mmol/L (98-107); Globulin 3.2 g/dL (1.3-4.6); Glomerular Filtration Rate 191.5 mL/min (90-130); Glucose 88 mg/dL (65-115); Osmolality Calculated 277 mOsm/kg (285-295); Sodium 135 mmol/L (136-145); Total Bilirubin 0.2 mg/dL (0.15-1.2); Total Protein 6.8 g/dL (6.6-8.7); Uric Acid 5.3 mg/dL (2.4-5.7)
[2022-10-25 10:52] LABS: Anion Gap 15.5 (5-19); Potassium 4.5 mmol/L (3.5-5.1)
[2022-10-25 10:53] LABS: Aspartate Amino Transferase 20 U/L (0-32)
[2022-10-25 11:17] LABS: Bilirubin Urine Neg (Negative); Blood Urine Neg (Negative); Glucose Urine UA Norm (Normal); Ketones Urine Negative (Negative); Nitrate Urine Negative (Negative); Protein Urine Neg (Negative); Specific Gravity, Urine 1.005 (1.005-1.030); Urine Appearance SL Hazy (CLEAR); Urine Color Yellow (Yellow); pH Urine 7 (5-7)
[2022-10-25 11:18] LABS: Add Urine Microscopic? YES; Leukocyte Esterase Urine 2+ (Negative); Urobilinogen Urine Norm (Negative)
[2022-10-25 11:20] LABS: Urine Creatinine 72 mg/dL (28-217); Urine Protein Random 7 mg/dL
[2022-10-25 11:23] LABS: Add Urine Culture? Yes; Bacteria Urine 2+ /hpf; Mucus Urine TRACE /hpf
[2022-10-25] MEDS: lactated ringers 1,000 ML 999 ML IV ×2 (12:16→13:26)
[2022-10-25] MEDS: ROPivacaine syringe 100 MG/50 ML SYRINGE 10 MG EPIDURAL ×3 (13:20→20:34)
--- NOTE | 2022-10-25 13:26 | P.ANESASSM_ITS ---
Pre-Anesthetic Assessment Height/Weight: Height 1.75 m Weight 131.995 kg Pulse Resp BP Pulse Ox O2 Del Method 103 H 17 132/64 97 Room Air 10/25/22 13:23 10/25/22 10:30 10/25/22 13:23 10/25/22 13:23 10/25/22 10:14 Epidural Familial anesthetic complications: None Was Beta Nasim taken within 24 hours: N/A Was Clonidine taken within 24 hours: N/A Social No alcohol and No tobacco Exam alert, oriented x 3, clear to auscultation bilaterally and regular rate & rhythm Airway Mallampati: Class II Dentition: full CV/HEM Hypertension Metabolic Morbid Obesity Anesthetic Plan ASA status: 3 Anesthesia: Regional (specify below) Risk of > 500 ml blood loss (7ml/kg in children): Yes, adequate IV access and fluids planned Medications/Allergies Home Medications Medication Instructions Recorded Confirmed Last Taken Type prenat.vits,karsten,wap-hwbz-mfagi 1 tab PO DAILY 08/30/22 10/25/22 10/24/22 19:00 History labetalol 200 mg tablet 200 mg PO BID #60 tabs 09/19/22 10/25/22 10/24/22 19:00 Rx Allergies Allergy/AdvReac Type Severity Reaction Status Date / Time lorazepam [From Ativan] Allergy ADR-Halluci Verified 10/21/22 08:19 nating Penicillins Allergy ALGY-Rash Verified 10/21/22 08:19 Sulfa (Sulfonamide Allergy ALGY-Rash Verified 10/21/22 08:19 Antibiotics) Current Medications Generic Name Dose Route Start Last Admin Trade Name Freq PRN Reason Stop Dose Admin Lactated Ringer's 1,000 mls @ 999 mls/hr 10/25/22 12:04 10/25/22 12:16 Lactated Ringers IV 999 mls/hr .Q1H1M PRN Administration See label comments PFSH Anesthesia Medical History Anxiety Depression No pertinent past medical history neghx: htn,dm,thyroid,dvt/pe PCP: [facility] Obesity MITRA (obstructive sleep apnea) Recurrent loss Renal cell carcinoma of right kidney (~2018) She had removal of her right kidney by Dr. Eyal Martinez at [facility] Surgical History H/O dilation and curettage Suction D& C performed on 04/14/[address] Ballesteros at [facility] History of cholecystectomy History of kidney surgery History of tonsillectomy and adenoidectomy Hx of partial nephrectomy Family History Mother Hypertension Stroke Father Hypertension Grandmother Stroke maternal Breast cancer, Onset Age: 68 maternal Grandfather Heart disease maternal Colon cancer, Onset Age: 72 paternal Denies family history of Ovarian cancer Diabetes Clotting disorder Hyperlipidemia Anesthesia complication Bleeding disorder Uterine cancer Thyroid condition Social History Substance/Drug Use: never Do you think of yourself as: Straight/Heterosexual Female Reproductive History : 5 Spontaneous abortions: Yes Data Anesthesia 10/25/22 09:30 10/25/22 09:30 Short CBC 10/25/22 Range/Units 09:30 WBC 12.72 H (3.29-11.43) 10^3/uL Hgb 12.50 (11.27-16.99) g/dL Hct 38.5 (36-47) % MCV 84.8 L (85-98) fl Plt Count 246 (157-399) 10^3/cmm Neut % (Auto) 76.5 % Neut # (Auto) 9.74 H (1.8-7.7) 10^3/uL BMP 10/25/22 09:30 Sodium 135 L Potassium 4.5 Chloride 103 Carbon Dioxide 21 L BUN 7 Creatinine 0.4 L Glucose 88 Calcium 8.8 Liver Function 10/25/22 Range/Units 09:30 Total Bilirubin 0.2 (0.15-1.2) mg/dL AST 20 (0-32) U/L ALT 23 (0-33) U/L Alkaline Phosphatase 137 H (35-105) U/L Albumin 3.6 (3.5-5.2) g/dL Urine 10/25/22 Range/Units 10:24 Urine Color Yellow (Yellow) Urine Appearance Sl hazy A (CLEAR) Urine pH 7 (5-7) Ur Specific Ewing 1.005 (1.005-1.030) Urine Protein Neg (Negative) Urine Glucose (UA) Norm (Normal) Urine Ketones Negative (Negative) Urine Nitrate Negative (Negative) Urine Bilirubin Neg (Negative) Ur Leukocyte Esterase 2+ H (Negative) Urine RBC 5-10 H (0-2) /hpf Urine WBC 10-15 H (0-5) /hpf Cardiac Studies: Echocardiogram Ultrasound 11/21/19 Cardiac Event Monitor 11/01/19
--- NOTE | 2022-10-25 13:27 | ANES.PROC ---
Anesthesia Procedures Procedure/Date: 10/25/22 Epidural: Time Out Performed: Yes Consents Signed: Procedure Consent Consent: requested by attending/covering physician, from patient, from other, risks and benefits reviewed and patient agrees to proceed Lumbar Level: L3-L4 Epidural position: sitting Epidural procedure: sterile prep of area, 1% lidocaine to numb the area, 18 g needle, negative for paresthesia passed, neg for paresthesia, test dose given, 1.5% xylocaine 1:200k epi (5 cc), 0.2% Ropivacaine bolus ml (5), placed PCEA, no systemic response, sterile dressing applied, L.U.D. no apparent complications and 0.2% Ropiavacaine @ mls/hr (10) Additional Comments: KYREE at 7 cm, threaded to 13 cm. Patient reported feeling numbness in hips after ropi bolus.
[2022-10-25] MEDS: oxytocin 30 UNIT/500 ML BAG IV (14:15)
--- NOTE | 2022-10-25 15:14 | W.PM.OPSUD ---
Surgery/Procedure H&P Update DATE OF PROCEDURE: October 25, 2022 DATE H&P PERFORMED: 10/21/22 H&P UPDATE INFORMATION: I have reviewed H&P completed within last 30 days, I have examined patient prior to procedure and No changes to prior documentation
--- NOTE | 2022-10-25 15:16 | PM.OPHPUD ---
Labor & Delivery H&P Update Date of Procedure: October 25, 2022 Date H&P Performed: 10/21/22 H&P update information: I have reviewed H&P completed within last 30 days, I have examined patient prior to procedure and No changes to prior documentation Admission Diagnosis:
[2022-10-25] MEDS: dextrose 5%-lactated ringers 1,000 ML 125 ML IV (18:41)
--- NOTE | 2022-10-25 21:26 | P.ANES_ITS ---
Anesthesia Procedures Procedure/Date: 10/25/22 epidural bolus Procedure Narrative: MECHANICAL MANUFACTURING ENGINEER at bedside at 2122, 100mcg fentanyl and 4cc 0.25% bupi given for epidural bolus.
--- NOTE | 2022-10-25 21:26 | ANES.PROC ---
Anesthesia Procedures Procedure/Date: 10/25/22 epidural bolus Procedure Narrative: HOME EXTENSION AGENT at bedside at 2122, 100mcg fentanyl and 4cc 0.25% bupi given for epidural bolus.
[2022-10-25] MEDS: oxytocin 30 UNIT/500 ML BAG 600 UNIT IV (21:46)
[2022-10-25] MEDS: miSOPROStol 200 mcg Tablet 800 MCG PR (21:54)
--- NOTE | 2022-10-25 22:52 | PM.DELIVERY ---
Delivery Note: Date of delivery: October 26, 2022 Pre-delivery diagnoses: Term . Chronic hypertension Oligohydramnios Procedure: Spontaneous vaginal delivery Estimated blood loss (mL): 500 Delivery: The patient was noted to be complete and pushing, so was placed in the dorsal lithotomy position, prepped and draped in the usual sterile fashion for a vaginal delivery. Pt. Noted to have epidural anesthesia. At 2141 the patient delivered a viable 38 weeks female weighing 380 g with scores of 9 and 10 at one and five minutes, respectively. The vertex was delivered spontaneously over intact perineum. The patient was asked to push and the head delivered spontaneously in the MICHELLE position, over an intact perineum. A nuchal cord was checked and none noted. The anterior shoulder delivered easily and the posterior shoulder followed. The remainder of the infant was easily delivered and the oropharynx and nasopharynx was bulb suctioned. The was noted to have spontaneous cry and spontaneous movement of all four extremities. The cord was clamped x 2 and cut and noted to have 2 arteries and one vein. The infant was passed to the mother's abdomen where nursing personnel were in attendance. Cord blood sample was then obtained. The placenta delivered intact spontaneously and the uterus was explored. 20 units of Pitocin was placed in the IV bag to firm the uterus. Examination of the cervix and vaginal vault did not reveal any lacerations. A vaginal pack was then placed. Misoprotol 800 mg give rectally. Examination of the perineum showed no lacerations. The vaginal pack was then removed. The patient tolerated this procedure well, and recovered in L&D with her infant in their LDR room. All sponge and needle counts were correct. History History History 5 Term 2 0 Miscarriages/Ectopic 2 Living Children 2 Coding Level of Care Code Acute Code for Chg Fwd Diagnoses
[2022-10-26] VITALS (11 sets, daily range): BP systolic 122–161; BP diastolic 73–96; PULSE 74–92; RESP 14–18; TEMP 36.6–36.8; O2SAT 95–97
[2022-10-26] MEDS: acetaminophen 325 mg Tablet 650 MG PO ×2 (05:10→17:28)
[2022-10-26] MEDS: HYDROcodone-acetaminophen 5-325 mg Tablet PO ×2 (07:32→16:09)
--- NOTE | 2022-10-26 09:01 | P.PN_ITS ---
Subjective Subjective: Ms. Feng is a 27 year old is status post spontaneous vaginal delivery. Desires permanent sterilization. Vitals/I&O/Wt Last Vital Signs Temp 98.0 F 10/26/22 05:35 Pulse 80 10/26/22 05:45 Resp 18 10/26/22 05:35 BP 146/85 10/26/22 05:45 Pulse Ox 96 10/26/22 05:35 O2 Del Method Room Air 10/26/22 05:35 10/25/22 10/26/22 10/26/22 22:59 06:59 14:59 Intake Total 120.05 / 1120.30 1527 / 2647.30 Output Total 400 / 400 1150 / 1550 Balance -279.95 / 720.30 377 / 1097.30 Weight last 48 hrs Weight 131.995 kg Physical Exam Narrative: GA; alert and oriented x 3 HEENT: normal Breasts: engorged Nipples - skin intact Lungs; clear to auscultation Heart: regular rhythm, no murmurs. Abd: Appropriately tender. BS+. Uterine fundus below umbilicus. No Fundal Tenderness. Perineum: normal lochia. Extremities: no edema, no cyanosis, no tenderness. Urinary Catheter Management: Castillo: Cath Placed During This Visit: yes, but has since been removed by the nurse Reason for Continuing Indwelling Catheter: Decision to DC Catheter Urinary Catheter Date of Insertion: 10/25/22 Urinary Catheter Time of Insertion: 13:50 Date Urinary Catheter Removed: 10/25/22 Time Urinary Catheter Discontinued: 21:40 Data 10/25/22 09:30 10/25/22 09:30 A&P Assessment and plan (1) Term delivered: Ms. Feng is a 27 year old is status post spontaneous vaginal delivery day 1. Desires permanent sterilization. She is afebrile and hemodynamically stable. (2) Request for sterilization: 27-year-old female desire permanent sterilization. The patient was counseled regarding all methods of contraception, risk and complications. She elected to continue with plan sterilization via bilateral partial salpingectomy. The bilateral partial salpingectomy is associated with lower failure rates than interval tubal occlusions done via laparoscopy. She was counseled regarding the procedure, alternative, risks and complications. Complications of tubal sterilization include problems like but not limited to anesthesia, hemorrhage, organ damage, and mortality. Although pregnancies after a sterilization procedure are rare, there is substantial risk that any post- sterilization could be ectopic. The overall failure rate is on the order of 0.5% in the first year but a study showed that sterilization failures vary by both age at sterilization and the method used. The study also found that the risks of accumulate over time, and that for women aged 18 to 27 years, failure rates can be as high as 5% with bipolar coagulation and the spring clip. The patient was informed of the risks and benefits of the procedure. Risks included but were not limited to bleeding, infection, and injury to internal organs. The patient was counseled on the risk of sterilization failure. The patient was informed that in the event a occurs the risk of ectopic is increased. The patient was counseled that bilateral tubal ligation is intended to be permanent and nonreversible. She was also counseled that there are nonpermanent forms of control available to her. The patient expressed understanding of the risks involved, all questions were answered, and the patient consented to the procedure. Attestations Medical Necessity Statement*: In my professional opinion per admitting diagnosis Coding Level of Care Code Acute Code for Chg Fwd Diagnoses Term delivered O80 Request for sterilization Z30.2
[2022-10-26] MEDS: prenatal vitamin Capsule 1 CAP PO (09:44)
[2022-10-26] MEDS: ibuprofen 800 mg tablet PO ×3 (09:44→21:51)
[2022-10-26] MEDS: docusate sodium 100 mg Capsule PO ×2 (09:44→17:28)
[2022-10-26 11:50] LABS: Hematocrit 35.7 % (36-47); Mean Corpuscular HGB Conc 32.8 g/dL (30-55); Mean Corpuscular Hemoglobin 27.6 pg (27-33); Mean Corpuscular Volume 84.2 fl (85-98); Mean Platelet Volume 9.9 fL (7.4-10.4); Platelet Count 204 10^3/cmm (157-399); Red Blood Count 4.24 10^6/uL (3.85-5.65); Red Cell Distribution Width 14.8 % (12.1-15.1); White Blood Count 12.18 10^3/uL (3.29-11.43)
[2022-10-26] MEDS: hyDROXYzine 25 mg Capsule 50 MG PO (17:35)
[2022-10-27] VITALS (11 sets, daily range): BP systolic 113–171; BP diastolic 68–93; PULSE 66–95; RESP 16–20; TEMP 36.1–37.2; O2SAT 96–100
[2022-10-27] MEDS: HYDROcodone-acetaminophen 5-325 mg Tablet PO (04:04)
[2022-10-27] MEDS: hyDROXYzine 25 mg Capsule 50 MG PO ×2 (09:16→18:13)
[2022-10-27] MEDS: ibuprofen 800 mg tablet PO ×3 (09:16→20:30)
[2022-10-27] MEDS: lactated ringers 1,000 ML 999 ML IV (10:54)
[2022-10-27] MEDS: metoclopramide 5 mg/mL SDV 2 mL 10 MG IVP (12:07)
[2022-10-27] MEDS: famotidine 20 mg/2 mL INJ IVP (12:07)
[2022-10-27] MEDS: BUPivacaine 0.5% INJ 30 mL INJECTION (12:24)
--- NOTE | 2022-10-27 13:01 | P.OP_ITS ---
Operative Report Date of procedure: October 27, 2022 Pre-op diagnosis: Term delivered. Desire permanent sterilization. Post-op diagnosis: Same Post-op findings: uterus Procedure done: bilateral partial salpingectomy Specimens removed/disposition: Left and right fallopian tube segment Surgeon: Paul Ballesteros MD Estimated blood loss (mL): 10 IV fluids (mL): 1,000 Procedure: The patient was informed of the risks and benefits of the procedure. Risks included but were not limited to bleeding, infection, and injury to internal organs. The patient was counseled on the risk of sterilization failure. The patient was informed that in the event a occurs the risk of ectopic is increased. The patient was counseled that bilateral tubal ligation is intended to be permanent and nonreversible. She was also counseled that there are nonpermanent forms of control available to her. The patient expressed understanding of the risks involved, all questions were answered, and the patient consented to the procedure. After assuring informed consent. The patient was taken to the operating room and general anesthesia administered. Time-out procedure was performed. A small, transverse, infraumbilical skin incision was made with a scalpel, and the incision was carried down through the underlying fascia until the peritoneum was identified and entered. The left fallopian tube was identified, brought into the incision and grasped with a [place] clamp. The tube was then followed out to the fimbria. An avascular midsection of the fallopian tube was grasped with a [place] clamp and brought into a knuckle. Using the LigaSure were fine Fusion device the falopian tube was clamped, seal and cut. The specimen was sent to pathology. Excellent hemostasis was noted, and the tube was returned to the abdomen. The same procedure was performed on the opposite fallopian tube. The fascia was then closed with O-Vicryl in a single layer. The skin was closed with 3-O Monocryl in a subcuticular fashion. The patient tolerated the procedure well. Needle and sponge counts were correct times 3.
[2022-10-27] MEDS: labetalol 5 mg/mL SDV 20mL 20 MG IVP (13:28)
[2022-10-27] MEDS: dextrose 5%-lactated ringers 1,000 ML 125 ML IV (13:51)
--- NOTE | 2022-10-27 14:34 | ANE.PACU2 ---
Inpatient post-anesthesia follow up: Airway intact: Yes Vital signs: Temperature 98.2 F Pulse Rate 76 Respiratory Rate 16 Blood Pressure 136/88 Pulse Oximetry 96 Oxygen Delivery Me thod Room Air Oxygen Flow Rate Fraction of Inspir ed Oxygen Hydration adequate: Yes Nausea and vomiting: No Pain level: 1 Mental status: Baseline
[2022-10-27] MEDS: labetalol 200 mg Tablet PO (18:04)
[2022-10-27] MEDS: docusate sodium 100 mg Capsule PO ×2 (18:04→20:30)
[2022-10-28 00:35] VITALS: BP 142/79; PULSE 77; RESP 15; TEMP 36.6; O2SAT 97
[2022-10-28 04:00] VITALS: BP 137/83; PULSE 76; RESP 16; TEMP 36.7; O2SAT 96
[2022-10-28 05:33] LABS: Hematocrit 34.1 % (36-47); Mean Corpuscular HGB Conc 32.3 g/dL (30-55); Mean Corpuscular Hemoglobin 27.6 pg (27-33); Mean Corpuscular Volume 85.7 fl (85-98); Mean Platelet Volume 9.9 fL (7.4-10.4); Platelet Count 206 10^3/cmm (157-399); Red Blood Count 3.98 10^6/uL (3.85-5.65); Red Cell Distribution Width 14.8 % (12.1-15.1); White Blood Count 8.21 10^3/uL (3.29-11.43)
[2022-10-28] MEDS: HYDROcodone-acetaminophen 5-325 mg Tablet PO (07:18)
--- NOTE | 2022-10-28 08:51 | P.DS_ITS ---
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 Hearn is a 27 year old established patient with LMP of 02/01/2022, NAJMA of 11/08/2022 consistent with 6 week ultrasound. Admitted to labor and delivery with with elevated blood pressure. [facility] have been complicated with chronic hypertension. During biophysical profile amniotic fluid with low. On cervical examination she was dilated for 5 cm. She was started on oxytocin low-dose and progressed to have a spontaneous vaginal delivery without complications. observation was uneventful. She had requested permanent sterilization. And a bilateral partial salpingectomy was performed without complications. She is afebrile hemodynamically stable postoperative day 1. Tolerating diet well. Ambulating without difficulty. Breast-feeding without any problems. She was counseled regarding pelvic rest for 6 weeks (no sex, no tampons, no vaginal douches). Return to the emergency room if any fever, increased bleeding or pain. Information Peripartum Data: Delivery Method: Vaginal Physical Exam Narrative: GA; alert and oriented x 3 HEENT: normal Breasts: engorged Nipples - skin intact Lungs; clear to auscultation Heart: regular rhythm, no murmurs. Abd: Appropriately tender. BS+. Uterine fundus below umbilicus. No Fundal Tenderness, minimal tenderness, incision clean and dry, no redness, pain or edema. Perineum: normal lochia. Extremities: no edema, no cyanosis, no tenderness. Urinary Catheter Management: Castillo: Cath Placed During This Visit: yes, but has since been removed by the nurse Reason for Continuing Indwelling Catheter: Decision to DC Catheter Urinary Catheter Date of Insertion: 10/25/22 Urinary Catheter Time of Insertion: 13:50 Date Urinary Catheter Removed: 10/25/22 Time Urinary Catheter Discontinued: 21:40 History History History 5 Term 2 0 Miscarriages/Ectopic 2 Living Children 2 Discharge Data Studies Completed and Pending Pending at discharge Category Date Time Status Pathology: Surgical [PTH] Routine Pth 10/27/22 14:36 Received Laboratory Results WBC 8.21 10^3/uL (3.29-11.43) 10/28/22 05:27 RBC 3.98 10^6/uL (3.85-5.65) 10/28/22 05:27 Hgb 11.00 g/dL (11.27-16.99) L 10/28/22 05:27 Hct 34.1 % (36-47) L 10/28/22 05:27 MCV 85.7 fl (85-98) 10/28/22 05:27 MCH 27.6 pg (27-33) 10/28/22 05:27 MCHC 32.3 g/dL (30-55) 10/28/22 05:27 RDW 14.8 % (12.1-15.1) 10/28/22 05:27 Plt Count 206 10^3/cmm (157-399) 10/28/22 05:27 MPV 9.9 fL (7.4-10.4) 10/28/22 05:27 Neut % (Auto) 76.5 % 10/25/22 09:30 Lymph % (Auto) 15.1 % 10/25/22 09:30 [place] % (Auto) 7.0 % 10/25/22 09:30 Eos % (Auto) 0.3 % 10/25/22 09:30 Baso % (Auto) 0.2 % 10/25/22 09:30 Neut # (Auto) 9.74 10^3/uL (1.8-7.7) H 10/25/22 09:30 Lymph # (Auto) 1.9 10^3/uL (0.8-4.8) 10/25/22 09:30 [place] # (Auto) 0.9 10^3/uL (0.2-0.9) 10/25/22 09:30 Eos # (Auto) 0.0 10^3/uL (0.0-0.8) 10/25/22 09:30 Baso # (Auto) 0.0 10^3/uL (0.0-0.1) 10/25/22 09:30 Nucleated RBC % (auto) 0 % 10/25/22 09:30 Nucleated RBCs # 0.0 /100WBC 10/25/22 09:30 Sodium 135 mmol/L (136-145) L 10/25/22 09:30 Potassium 4.5 mmol/L (3.5-5.1) 10/25/22 09:30 Chloride 103 mmol/L (98-107) 10/25/22 09:30 Carbon Dioxide 21 mmol/L (22-29) L 10/25/22 09:30 Anion Gap 15.5 (5-19) 10/25/22 09:30 BUN 7 mg/dL (6-20) 10/25/22 09:30 Creatinine 0.4 mg/dL (0.5-0.9) L 10/25/22 09:30 GFR Calculation 191.5 mL/min (90-130) H 10/25/22 09:30 Glucose 88 mg/dL (65-115) 10/25/22 09:30 Calculated Osmolality 277 mOsm/kg (285-295) L 10/25/22 09:30 Uric Acid 5.3 mg/dL (2.4-5.7) 10/25/22 09:30 Calcium 8.8 mg/dL (8.5-10.5) 10/25/22 09:30 Total Bilirubin 0.2 mg/dL (0.15-1.2) 10/25/22 09:30 AST 20 U/L (0-32) 10/25/22 09:30 ALT 23 U/L (0-33) 10/25/22 09:30 Alkaline Phosphatase 137 U/L (35-105) H 10/25/22 09:30 Total Protein 6.8 g/dL (6.6-8.7) 10/25/22 09:30 Albumin 3.6 g/dL (3.5-5.2) 10/25/22 09:30 Globulin 3.2 g/dL (1.3-4.6) 10/25/22 09:30 Urine Color Yellow (Yellow) 10/25/22 10:24 Urine Appearance Sl hazy (CLEAR) A 10/25/22 10:24 Urine pH 7 (5-7) 10/25/22 10:24 Ur Specific [place] 1.005 (1.005-1.030) 10/25/22 10:24 Urine Protein Neg (Negative) 10/25/22 10:24 Urine Glucose (UA) Norm (Normal) 10/25/22 10:24 Urine Ketones Negative (Negative) 10/25/22 10:24 Urine Blood Neg (Negative) 10/25/22 10:24 Urine Nitrate Negative (Negative) 10/25/22 10:24 Urine Bilirubin Neg (Negative) 10/25/22 10:24 Urine Urobilinogen Norm mg/dL (Negative) 10/25/22 10:24 Ur Leukocyte Esterase 2+ (Negative) H 10/25/22 10:24 Urine RBC 5-10 /hpf (0-2) H 10/25/22 10:24 Urine WBC 10-15 /hpf (0-5) H 10/25/22 10:24 Ur Squamous Epith Cells 5-10 /hpf (0-5) H 10/25/22 10:24 Amorphous Sediment Not Reportable 10/25/22 10:24 Urine Bacteria 2+ /hpf (NONE) H 10/25/22 10:24 Urine Mucus Trace /hpf 10/25/22 10:24 U Random Total Protein 7 mg/dL 10/25/22 10:24 Urine Creatinine 72 mg/dL (28-217) 10/25/22 10:24 Protein/Creatinin Ratio 0.10 mg/mg CR 10/25/22 10:24 Vitals Last Vital Signs Temp 98.1 F 10/28/22 04:00 Pulse 76 10/28/22 04:00 Resp 16 10/28/22 04:00 BP 137/83 10/28/22 04:00 Pulse Ox 96 10/28/22 04:00 O2 Del Method Room Air 10/28/22 04:00 O2 Flow Rate 2 10/27/22 13:40 Discharge Plan Discharge Patient Disposition: Home Condition: Stable Prescriptions: New hydrocodone-acetaminophen 5-325 mg tablet 1 tab PO Q4H PRN (Reason: pain) Qty: 10 0RF acetaminophen 325 mg capsule 325 mg PO Q4H PRN (Reason: fever or postoperative pain) Qty: 60 0RF ibuprofen 800 mg tablet 800 mg PO TID PRN (Reason: pain) Qty: 60 0RF Continued prenat.vits,karsten,[id number] Tablet 1 tab PO DAILY labetalol 200 mg tablet 200 mg PO BID Qty: 60 3RF Discharge Orders: Discharge Order (Routine); Ordered 10/28/22 Ordered By: Paul Ballesteros Referrals: Paul Ballesteros MD [Physician] - 2 weeks Discharge Diet: Usual diet Discharge Activity: Limit activity as instructed Patient Instructions: Depression (DC), Bleeding (DC), Preeclampsia and Eclampsia After Delivery (GEN), Tubal Ligation (DC), Hemorrhage (DC), OB Discharge Report, OB Food/Drug Interaction Guide, OB Care at Home, Opioid Safety, OB Home Care, OB Vaginal Deliveries - [facility] Activity Restrictions/Additional Instructions: 1. Please call [facility] on next working day to make your post-operative appointment in 2 weeks. 2. Please stay home until you come back to the clinic on first post- hospatilization check up. 3. Please follow instructions on your medications CAREFULLY. 4. If you have abdominal incision, do not cover it unless dressing is necessary because of drainage. OK to shower, but avoid bath. Leave steri-strips until they fall off. If they are still on one week after surgery, you may remove them. 5. If you had vaginal surgery or vaginal repair, Dr. Ballesteros may instruct you to take SITZ bath. 6. Yellow, blood tinged odorous vaginal discharge is usually normal after hysterectomy or vaginal surgeries. 7. No SEXUAL INTERCOURSE, tampons, or douches until you are completely released from the post-operative care. 8. Avoid constipation by eating right and maybe using some Metamucil or Milk of Magnesia. 9. All prescription refills are given during the working hours. Please do no wait till it runs out. Call the clinic at [phone] before your medication runs out. The clinic will get in touch with your doctor to prescribe medications if necessary. 10. Please remain within 40 mile radius from our hospital because emergencies do happen now and then during the post-operative period. 11. If you have stairs at home, take one step at a time slowly and minimize the number of trips. It helps to stay in one floor for the next few days. No lifting except what you can lift by one hand until you are released from the post-operative care. 12. Driving is discouraged until you are well healed. It may be 3-4 weeks before you feel strong enough to drive. You should be able to turn and look through the rear window without pain and you should be able to push the brake pedal very hard without pain before you drive. No fast rules, but SAFETY should be your primary concern. DO NOT drive if you are on sedating medications such as narcotics. 13. Call the clinic (during working hours) to make urgent appointment or go to the Emergency room, if any of the following occurs: i. Vaginal bleeding becomes heavy, more than a period. ii. Incision becomes red and sore, or drains pus. iii. Your TEMPERATURE is over 100.4F or you have chill. iv. IV site becomes red and swollen (a little ``knot?? is usually OK) v. Persistent nausea and vomiting vi. Persistent constipation or diarrhea vii. Rash or allergic reaction to medications. 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
[2022-10-28] MEDS: ibuprofen 800 mg tablet PO (10:08)
[2022-10-28] MEDS: prenatal vitamin Capsule 1 CAP PO (10:08)
[2022-10-28] MEDS: docusate sodium 100 mg Capsule PO (10:08)
[2022-10-28] MEDS: labetalol 200 mg Tablet PO (10:09)
[2022-10-28 10:15] VITALS: BP 151/90; PULSE 68; RESP 15; TEMP 36.9; O2SAT 97
[2022-10-28 11:30] VITALS: BP 151/90; PULSE 68; RESP 15; TEMP 36.9; O2SAT 97
== END 2022-10-28 11:55 | disposition home or self-care (01) | DRG 798 ==
LOC: OPOB 12:08 → OBGYN 12:08
PROVIDERS: Admitting Provider Obstetrics & Gynecology; PCP Family Medicine; Visit Provider Obstetrics & Gynecology
PROC: 0UB70ZZ Excision of Bilateral Fallopian Tubes, Open Approach (ICD-10-PCS; CPT 58605; principal; 2022-10-27 12:00)
DX: O41.03X0 Oligohydramnios, third trimester, not applicable or unspecified (principal); Z37.0 Single live birth; O13.4 Gestational [pregnancy-induced] hypertension without significant proteinuria, complicating childbirth; Z3A.38 38 weeks gestation of pregnancy; Z30.2 Encounter for sterilization
CPT/HCPCS: 36415; 51702; 58605; 59025; 59409; 80053; 81001; 82570; 84156; 84550; 85025; 85027; 87086; 88302; 96374; 96376; 99211; J0330; J1170; J2405; J2590; J2704; J2710; J2765; J2795; J3010; J3490; J7120; J7121

== ENCOUNTER → 2023-01-27 09:04 | Outpatient (BNVA) | payer OTHER, SELFPAY | PROVIDERS: PCP Family Medicine; Visit Provider Nurse Practitioner Family | DX: R05.9 Cough, unspecified (principal); J06.9 Acute upper respiratory infection, unspecified | CPT/HCPCS: 87400 ==

== ENCOUNTER → 2024-01-29 15:01 | Outpatient (BNVA) | payer OTHER, SELFPAY | PROVIDERS: Visit Provider Nurse Practitioner Family | DX: M79.642 Pain in left hand (principal) | CPT/HCPCS: 73130 ==

== ENCOUNTER → 2024-09-11 07:42 | Outpatient (BNVA) | payer OTHER, SELFPAY | PROVIDERS: PCP Family Medicine; Visit Provider Podiatrist Foot & Ankle Surgery | DX: M79.672 Pain in left foot (principal); S92.352A Displaced fracture of fifth metatarsal bone, left foot, initial encounter for closed fracture; X58.XXXA Exposure to other specified factors, initial encounter | CPT/HCPCS: 73630 ==

== ENCOUNTER → 2024-09-27 16:00 | Outpatient (BNVA) | payer OTHER, SELFPAY | PROVIDERS: PCP Family Medicine; Visit Provider Nurse Practitioner | DX: R39.9 Unspecified symptoms and signs involving the genitourinary system (principal) | CPT/HCPCS: 81000; 87086 ==

== ENCOUNTER → 2024-10-02 07:48 | Outpatient (BNVA) | payer OTHER, SELFPAY | PROVIDERS: PCP Family Medicine; Visit Provider Podiatrist Foot & Ankle Surgery | DX: M79.672 Pain in left foot (principal); S92.352A Displaced fracture of fifth metatarsal bone, left foot, initial encounter for closed fracture; X58.XXXA Exposure to other specified factors, initial encounter | CPT/HCPCS: 73630 ==

== ENCOUNTER → 2024-12-11 10:00 | Outpatient (BNVA) | payer OTHER, SELFPAY | PROVIDERS: PCP Family Medicine; Visit Provider Nurse Practitioner Women's Health | DX: N93.9 Abnormal uterine and vaginal bleeding, unspecified (principal); Z12.4 Encounter for screening for malignant neoplasm of cervix | CPT/HCPCS: 83036; 84439; 84443; 85025; 88175 ==

== ENCOUNTER → 2024-12-30 07:57 | Outpatient (BNVA) | payer OTHER, SELFPAY | PROVIDERS: PCP Family Medicine; Visit Provider Nurse Practitioner Women's Health | DX: N93.9 Abnormal uterine and vaginal bleeding, unspecified (principal) | CPT/HCPCS: 76830 ==